=== PATIENT | male | born 1940 | race Caucasian/White ===

== ENCOUNTER 2019-06-09 16:51 | Inpatient (IN) | payer MEDICARE, MEDICAID ==
[~2019-06-09] VITALS: Ht 170.2 cm; Wt 61.2 kg
--- NOTE | 2019-06-09 16:51 | NUR ---
"HD catheter malfunction - sent by Dr. Bronson to ER- unable to do HD today per SNF nurse report" PT TO BED 16, PT AAOX4, -SOB, NAD NOTED, VSS, PENDING MD LEGGETT
[2019-06-09] MEDS ORDERED: HYDR-4075 PO (17:46)
[2019-06-09] MEDS ORDERED: INSU100V39 SQ ×2 (17:46)
[2019-06-09] MEDS ORDERED: ISOS30TA6 PO (17:46)
[2019-06-09] MEDS ORDERED: HYDR-4354 PO (17:46)
[2019-06-09] MEDS ORDERED: ATOR20TA PO (17:46)
[2019-06-09] MEDS ORDERED: NITR0.4T48 SL (17:46)
[2019-06-09] MEDS ORDERED: CARV12.52 PO (17:46)
[2019-06-09] MEDS ORDERED: TAMS-12 PO (17:46)
[2019-06-09] MEDS ORDERED: AMLO5TAB4 PO (17:46)
[2019-06-09] MEDS ORDERED: BISA10SU11 RC (17:46)
[2019-06-09] MEDS ORDERED: SENN-168 PO (17:46)
[2019-06-09] MEDS ORDERED: FAMO20TA8 PO (17:46)
[2019-06-09] MEDS ORDERED: FURO-145 PO (17:46)
[2019-06-09] MEDS ORDERED: DONE5TAB34 PO (17:46)
[2019-06-09] MEDS ORDERED: DOCU-141 PO (17:46)
[2019-06-09] MEDS ORDERED: ASCO500T10 PO (17:46)
[2019-06-09] MEDS ORDERED: VIT1TABL44 PO (17:46)
[2019-06-09] MEDS ORDERED: ACET-73 PO (17:46)
[2019-06-09] MEDS ORDERED: ASPI-605 PO (17:46)
--- NOTE | 2019-06-09 18:12 | NUR ---
CALLED [facility]ED DR GRIFFIN
[2019-06-09 18:13] LABS: BASOPHILS # (AUTO) 0.1 /CMM (0.0-0.2); BASOPHILS % (AUTO) 0.9 % (0.0-2.0); EOSINOPHILS % (AUTO) 1.2 % (0.0-6.0); HEMATOCRIT 33 % (39-51); HEMOGLOBIN 10.4 g/dL (13.5-17.5); LYMPHOCYTES % (AUTO) 8.3 % (20.0-44.0); MEAN CORPUSCULAR HGB CONC 32 g/dl (31.0-36.0); MEAN CORPUSCULAR VOLUME 90 fL (80-96); MONOCYTES # (AUTO) 1.2 /CMM (0.1-1.30); MONOCYTES % (AUTO) 10.2 % (2.0-12.0); NEUTROPHILS # (AUTO) 9.6 /CMM (1.8-8.9); NEUTROPHILS % (AUTO) 79.4 % (43.0-81.0); PLATELET COUNT (AUTO) 256 /CMM (150-450); RED BLOOD CELL COUNT(AUTO) 3.63 MIL/uL (4.5-6.0); WHITE BLOOD COUNT (AUTO) 12.1 K/uL (4.3-11.0)
[2019-06-09 18:27] LABS: CARBON DIOXIDE 23 mmol/L (21-32); CHLORIDE 102 mmol/L (98-107); CREATININE 3.9 mg/dL (0.6-1.3); GLUCOSE 209 mg/dL (74-106); POTASSIUM 5.4 mmol/L (3.5-5.1); SODIUM SERUM 136 mmol/L (136-145); UREA NITROGEN, BLOOD 59 mg/dL (7-18)
[2019-06-09] MEDS ORDERED: ALBUTEROL FS 2.5 MG/0.5 ML VIAL.NEB NEB ONE (19:00)
[2019-06-09] MEDS ORDERED: INSULIN REGULAR, HUMAN 100 UNIT/ML 10 ML VIAL IV ONE (19:00)
[2019-06-09] MEDS ORDERED: FUROSEMIDE 20 MG/2 ML VIAL IV ONE (19:00)
--- NOTE | 2019-06-09 19:00 | NUR ---
[facility] NURSE CALLED; PER DR GRIFFIN TO GIVE ALTEPLASE THROUGH HD CATH, DIALYSIS NURSE WONT BE HERE UNTIL AFTER 9PM, T.O ORDER FROM DR. GRIFFIN SENT TO PHARMACY.
[2019-06-09] MEDS ORDERED: FUROSEMIDE 20 MG/2 ML VIAL ONE (19:25)
[2019-06-09] MEDS ORDERED: INSULIN REGULAR, HUMAN 100 UNIT/ML 10 ML VIAL ONE (19:26)
[2019-06-09] MEDS ORDERED: ALBUTEROL FS 2.5 MG/0.5 ML VIAL.NEB ONE (19:34)
--- NOTE | 2019-06-09 20:59 | NUR ---
REPORT GIVEN TO PAZ VAZ FOR KIMBER PT WILL BE TRANSPORTED TO 3RD FLOOR
[2019-06-09] MEDS ORDERED: ALTEPLASE CATHFLO 2 MG/VIAL IV ONE (21:00)
--- NOTE | 2019-06-09 21:10 | NUR ---
PT TRANSPORTED TO 3RD FLOOR VIA ACLS PROTOCOL
[2019-06-09 21:20] VITALS: BP 166/82
--- NOTE | 2019-06-09 21:20 | NUR ---
ADMISSION NOTES: RECEIVED REPORT FROM NOE ROUTE RETURNER. PT WAS BROUGHT TO THE UNIT VIA GURNEY. PLACED IN BED, KEPT COMFORTABLE. PT IS A/O X4, ON RA RESPIRATIONS EVEN AND UNLABORED. IV ACCESS ON LEFT AC PATENT AND FLUSHING WELL, ON HL. PT HAS LCW SUJATA CATH IN PLACED, DRESSING C/D/I, NO ACTIVE BLEEDING NOTED. PER REPORT PT'S HD CATH NOT WORKING, AND THAT HD RN WILL COME TO FIX IT TONIGHT. PER ROUTE RETURNER NOE NO ADMITTING ORDERS RECEIVED FROM DR GRIFFIN, EXCEPT FROM THE CALL FROM MAYELA WHO WAS THE HD RN WHO WILL COME LATER TONIGHT TO FIX THE HD CATH. ORIENTED PT TO UNIT POLICY AND HOURLY ROUNDING, USE OF CALL LIGHT. INVENTORY OF BELONGINGS COMPLETED BY CHANO MIRANDA. SKIN ASSESSMENT PERFORMED AND NOTED SKIN ISSUES, PLEASE SEE SKIN ASSESSMENT LOG. SAFETY PRECAUTIONS FOR FALL INITIATED, CALL LIGHT IN REACH, WILL CONTINUE TO MONITOR PT.
--- NOTE | 2019-06-09 21:40 | NUR ---
RN NOTES: INFORMED PT ABOUT BLOOD SUGAR CHECK, PT STATED HE WANTS TO EAT FIRST HE'S BEEN STARVING HAVENT HAD ANYTHING SINCE LUNCH, PT UPSET. INSISTED HE WOULD LIKE TO EAT, INFORMED PT REPEAT SUGAR CHECK SINCE HE RECEIVED INSULIN IN ER, PER PT HE WOULD RATHER EAT THAN HAVE HIS SUGAR CHECK. PT REFUSED, UPSET.
[2019-06-09 21:44] VITALS: BP 166/82
--- NOTE | 2019-06-09 21:45 | NUR ---
rn notes: informed pt i will need to check his blood sugar prior to him eating, as he was diabetic type 2. pt refused stated he doesnt care about anything right now except eating, as he's so hungry.
--- NOTE | 2019-06-09 21:50 | NUR ---
RN NOTES: PT COMPLAINING THAT HE HAVEN'T EAT LUNCH OR DINNER, AND STARVING. INFORMED PT THERE IS NO DIET ORDER FROM MD YET, PT YELLED STATED HE CANT WAIT ANYMORE, PT GRABBED HIS BAG AND GET THE SAND WHICH INSIDE HIS BAG. PT WAS SO UPSET BECAUSE HE'S STARVING. INFORMED HYDRO STATION OPERATOR.
--- NOTE | 2019-06-09 22:21 | NUR ---
rn notes: justine freedman rn just came to the unit to try fix the hd cath port. hd rn is the one who admisnistered the medication.
--- NOTE | 2019-06-09 22:30 | NUR ---
RN NOTES: PER HD RN BILL, MEDICATION WAS ADMINISTERED IN ONE PORT ONLY, HE STATED HE SUPPOSED TO HAVE 4MG OF THE MEDICATION, HE EXPLAINED THAT HE INSTILL THE MEDICATION IN THE PORT AND IT NEEDS TO SIT THERE FOR HOURS. HE ADDED IT WILL BE CHECK IN THE MORNING,IF EVERYTHING WENT WELL, THEN HD WILL BE DONE IN THE MORNING. HE STATED HE WILL NOTIFY DR GRIFFIN HIMSELF.
[2019-06-09 22:37] VITALS: BP 135/69
--- NOTE | 2019-06-09 22:46 | NUR ---
RN NOTES: [facility]TACTED [facility] [phone], FOR ADMITTING ORDERS, AWAITING FOR CALL BACK.
--- NOTE | 2019-06-09 23:12 | NUR ---
RN NOTES: RECEIVED CALL BACK FROM DR GABY Solorzano, GIVEN ADMITTING ORDERS, ALL ORDERS READ BACK, VERIFIED AND CARRIED OUT.
--- NOTE | 2019-06-09 23:13 | NUR ---
RN NOTES: DR GRIFFIN MADE AWARE OF ALL LAB RESULT AND CXR RESULT. PER MD IF THERE'S EKG DONE, THEN ITS OKAY, IF NONE, ORDER ONE EKG TEST TONIGHT.
[2019-06-09] MEDS ORDERED: TAMSULOSIN 0.4 MG CAP.SR.24H PO SCH (23:30)
[2019-06-09] MEDS ORDERED: DONEPEZIL 5 MG TABLET PO SCH (23:30)
[2019-06-09] MEDS ORDERED: HYDROCODONE/APAP 10/325MG 1 EA TABLET PO PRN (23:30)
[2019-06-09] MEDS: ATORVASTATIN 10 MG TABLET PO SCH (23:51)
[2019-06-09] MEDS: SENNOSIDES 8.6 MG TABLET PO SCH (23:51)
[2019-06-10] VITALS: BP 143/71
--- NOTE | 2019-06-10 02:15 | NUR ---
RN NOTES: PRINTED OUT ORDER FOR LISPRO IN AM, INFORMED RN SUP DEIRDRE ABOUT THE ORDER, PER RN SUP TO HAVE PHARMACY BROUGHT IT IN AM, THIS IS A FAST ACING INSULIN, PT NEEDS TO HAVE BREAKFAST TRAY AVAILABLE/MEAL AVAILABLE BEFORE GIVING THE MEDICATION TO PT IN ORDER TO MAKE SURE PT ATE AFTER RECEIVING LISPRO INSULIN. TAILING HAND AWARE.
[2019-06-10 04:50] VITALS: BP 141/69
--- NOTE | 2019-06-10 06:50 | NUR ---
rn closing notes: pt in bed, awake, remains a/o x3, on ra respirations even and unlabored. urinal within reach. iv access remains patent and flushing well, on hl. hd cath dressing remains c/d/i. no active bleeding noted. awaiting for hd rn to come and recheck hd catheter. vs remains stable, needs attended. . safety precautions for fall remains engaged, call light in reach, will endorse to day rn for continuity of care.
--- NOTE | 2019-06-10 07:31 | NUR ---
MS RN OPENING NOTES RECEIVED PT AWAKE IN BED IN NO ACUTE SIGNS OF DISTRESS. A/O X3. ABLE TO MAKE NEEDS KNOWN, DENIES ANY PAIN OR DISCOMFORTS AT THIS TIME. HD CATH ON CINDY INTACT WITH DRESSING C/D/I. ON ROOM AIR, BREATHING EVEN AND UNLABORED. IV ACCESS ON LAC G#20 INTACT, PATENT AND FLUSHES WELL. SAFETY MEASURES IN PLACE. BED IN LOW LOCKED POSITION WITH SR UP X2. CALL LIGHT WITHIN REACH. WILL CONTINUE TO MONITOR PT ACCORDINGLY.
[2019-06-10] MEDS: INSULIN LISPRO/ASPART 100 UNIT/ML CARTRIDGE SQ PRN (07:39)
[2019-06-10] MEDS: BLOOD SUGAR DIAGNOSTIC 1 EACH STRIP IN SCH ×4 (07:39→21:29)
[2019-06-10 08:00] VITALS: BP 148/88
[2019-06-10] MEDS: ISOSORBIDE MONONITRATE (30MG) 30 MG TAB.SR.24H PO SCH ×3 (09:00→16:22)
[2019-06-10] MEDS: CARVEDILOL 12.5 MG TABLET PO SCH ×2 (09:00→21:29)
[2019-06-10] MEDS ORDERED: MISCELLANEOUS MED 1 EA EA XX ONE (09:00)
[2019-06-10] MEDS: AMLODIPINE BESYLATE 5 MG TABLET PO SCH ×2 (09:00→16:24)
[2019-06-10] MEDS: ASCORBIC ACID 500 MG TABLET PO SCH (09:00)
[2019-06-10] MEDS ORDERED: HYDROCODONE/APAP 10/325MG 1 EA TABLET PO PRN (09:00)
[2019-06-10] MEDS ORDERED: BISACODYL SUPP (10 MG) 10 MG/SUPP.RECT SUPP.RECT RC PRN (09:00)
[2019-06-10] MEDS: hydrALAZINE HCL 10 MG TABLET PO SCH ×4 (09:00→20:09)
[2019-06-10] MEDS ORDERED: NITROGLYCERIN 0.4 MG/TAB BOTTLE SL PRN (09:00)
[2019-06-10] MEDS ORDERED: MISCELLANEOUS MED 1 EA EA PO PRN (09:00)
[2019-06-10] MEDS: DOCUSATE SODIUM 100 MG CAPSULE PO SCH ×2 (09:04→16:23)
[2019-06-10] MEDS: VIT B CMPLX 3/FA/VIT C/BIOTIN 1 TAB TABLET PO SCH (09:04)
[2019-06-10] MEDS: ASPIRIN EC 81 MG TABLET.DR PO SCH (09:04)
[2019-06-10] MEDS: FAMOTIDINE (20 MG) 20 MG TABLET PO SCH ×2 (09:04→16:23)
[2019-06-10] MEDS: FUROSEMIDE 20 MG TABLET PO SCH ×2 (09:05→16:23)
[2019-06-10] MEDS ORDERED: ACETAMINOPHEN 650 MG/20.3 ML UDC PO PRN (09:30)
--- NOTE | 2019-06-10 09:33 | NUR ---
RN NOTES DIALYSIS NURSE MAYELA ABLE TO DE CLOGGED HD CATH ON CINDY AND STARTED ON HD. PRE HD V/S TAKE: BP 144/78, P 66, R 18 AND T98.5F. WILL CONTINUE TO MONITOR.
[2019-06-10] MEDS: INSULIN LISPRO/ASPART 100 UNIT/ML CARTRIDGE SQ SCH ×2 (09:58→17:25)
[2019-06-10] MEDS ORDERED: ALTEPLASE CATHFLO 2 MG/VIAL IV ONE (10:00)
--- NOTE | 2019-06-10 10:02 | NUR ---
RN NOTES PT ON ONGOING DIALYSIS AT THIS TIME. ALL BP MEDS THIS MORNING NOT ADMINISTERED PER DIALYSIS NURSE BILL. WILL CONTINUE TO MONITOR.
--- NOTE | 2019-06-10 11:24 | NUR ---
RN NOTES PT HD COMPLETED AND TOLERATED PROCEDURE WITH 1000 ML OUTPUT PER HD NURSE BILL. DRESSING ON CINDY HD CATH CHANGED BY HD NURSE. S/P HD V/S TAKEN: BP 144/78, P 66, R 18. T 98F. WILL CONTINUE TO MONITOR PT.
[2019-06-10 16:00] VITALS: BP 145/79
--- NOTE | 2019-06-10 18:38 | NUR ---
MS RN CLOSING NOTES PT AWAKE AND WATCHING TV IN BED. HOB ELEVATED. A/O X3. ABLE TO MAKE NEEDS KNOWN. HD CATH ON CINDY INTACT WITH DRESSING C/D/I. PT TOLERATED ROOM AIR WITH NO ACUTE SIGNS OF DISTRESS NOTED THROUGHOUT THE DAY. IV HL ON LAC G#20 INTACT, PATENT AND FLUSHES WELL. PT ABLE TO MOVE INDEPENDENTLY IN BED. ENCOURAGED TO TURN FROM SIDE TO SIDE Q 2HRS AND PRN. ALL NEEDS AND CARE ATTENDED WELL. SAFETY MEASURES IN PLACE. BED IN LOW LOCKED POSITION WITH SR UP X2. CALL LIGHT WITHIN REACH. WILL ENDORSE TO CASTING ROOM HELPER NURSE FOR KIMBER.
--- NOTE | 2019-06-10 19:25 | NUR ---
RN INITIAL NOTES: RECEIVED REPORT FROM LIN VAZ. MET WITH PT IN THE ROOM, PT AWAKE, A/O X3, ON RA RESPIRATIONS EVEN AND UNLABORED. DENIES ANY PAIN OR DISCOMFORT AT THIS TIME. IV ACCESS PATENT AND FLUSHING WELL, ON HL. PT'S URINAL WITHIN REACH. LCW HD CATH DRESSING C/D/I, S/P HD TODAY WITH 1L OUTPUT. DISCUSSED PLAN OF CARE TO PT, WHICH PT AGREE. SAFETY PRECAUTIONS FOR FALL INITIATED, CALL LIGHT IN REACH, WILL CONTINUE MONITORING PT.
[2019-06-10 20:00] VITALS: BP 153/60
[2019-06-10 21:20] VITALS: BP 134/68
[2019-06-10] MEDS: DONEPEZIL 5 MG TABLET PO SCH (21:29)
[2019-06-10] MEDS: ATORVASTATIN 10 MG TABLET PO SCH (21:29)
[2019-06-10] MEDS: TAMSULOSIN 0.4 MG CAP.SR.24H PO SCH (21:29)
[2019-06-10] MEDS: SENNOSIDES 8.6 MG TABLET PO SCH (21:30)
--- NOTE | 2019-06-10 21:37 | NUR ---
ACCU CHECK 78: CHECK BLOOD SUGAR AND RESULT IS 78, NO INSULIN LISPRO GIVEN PER SLIDING SCALE. PT PROVIDED WITH SNACK SUCH TUNA SAND WHICH, JELL O , CRANBERRY JUICE, APPLE SAUCE PER PT REQUEST. WILL MONITOR FOR ANY S/S OF HYPOGLYCEMIA.
[2019-06-10] MEDS ORDERED: ATORVASTATIN 10 MG TABLET PO SCH (22:00)
[2019-06-10] MEDS ORDERED: SENNOSIDES 8.6 MG TABLET PO SCH (22:00)
[2019-06-11] MEDS ORDERED: Z GUARD REMEDY 2 OZ OINT TP PRN (04:00)
--- NOTE | 2019-06-11 04:51 | NUR ---
RN NOTES: BED BATH AND COMPLETE LINEN CHANGE PROVIDED BY CHANO GRIFFIN, WOUND CARE TX PERFORMED AT THIS TIME.
--- NOTE | 2019-06-11 06:43 | NUR ---
RN CLOSING NOTES: PT REMAINS ON RA, DENIES ANY SOB OR CHEST PAIN AT THIS TIME. IV ACCESS REMAINS PATENT AND FLUSHING WELL, ON HL. LCW HD CATH REMAINS IN PLACED, DRESSING C/D/I. BLE KEPT OFFLOADED. AWAITING DELIVERY OF [employer] MATTRESS. VS REMAINS STABLE, NEEDS ATTENDED. SAFETY PRECAUTIONS FOR FALL REMAINS ENGAGED, CALL LIGHT IN REACH, WILL ENDORSE TO DAY RN FOR CONTINUITY OF CARE.
--- NOTE | 2019-06-11 07:50 | NUR ---
MS RN OPENING NOTES RECEIVED PATIENT IN BED. ALERT AND AWAKE ORIENTED X3. HOB ELEVATED. NO SOB OBSERVED. DENIES ANY C/O PAIN NOR DISCOMFORT AT THIS TIME. CINDY HD CATH INTACT WITH DRESSING INTACT WITHOUT S/S OF COMPLICATIONS OBSERVED. LAC # 20 INTACT AND PATENT. BED IN LOWEST POSITION, LOCKED. BED ALARM ON. CALL LIGHT WITHIN REACH.
[2019-06-11 08:00] VITALS: BP 135/64
[2019-06-11] MEDS: ASCORBIC ACID 500 MG TABLET PO SCH (08:25)
[2019-06-11] MEDS: VIT B CMPLX 3/FA/VIT C/BIOTIN 1 TAB TABLET PO SCH (08:25)
[2019-06-11] MEDS: ASPIRIN EC 81 MG TABLET.DR PO SCH (08:25)
[2019-06-11] MEDS: BLOOD SUGAR DIAGNOSTIC 1 EACH STRIP IN SCH ×4 (08:25→21:40)
[2019-06-11] MEDS: FUROSEMIDE 20 MG TABLET PO SCH ×2 (08:26→17:21)
[2019-06-11] MEDS: FAMOTIDINE (20 MG) 20 MG TABLET PO SCH ×2 (08:26→17:21)
[2019-06-11] MEDS: DOCUSATE SODIUM 100 MG CAPSULE PO SCH ×2 (08:26→09:05)
[2019-06-11] MEDS: hydrALAZINE HCL 10 MG TABLET PO SCH ×4 (08:30→21:00)
[2019-06-11] MEDS: ISOSORBIDE MONONITRATE (30MG) 30 MG TAB.SR.24H PO SCH ×3 (08:31→17:00)
[2019-06-11] MEDS: AMLODIPINE BESYLATE 5 MG TABLET PO SCH ×2 (08:31→17:00)
[2019-06-11] MEDS: CARVEDILOL 12.5 MG TABLET PO SCH ×2 (08:31→21:00)
[2019-06-11] MEDS: INSULIN LISPRO/ASPART 100 UNIT/ML CARTRIDGE SQ SCH ×2 (08:33→17:00)
--- NOTE | 2019-06-11 08:55 | NUR ---
MS RN NOTES HELD B/P MEDS, ANTICIPATING HD.
[2019-06-11 11:19] LABS: BASOPHILS # (AUTO) 0.1 /CMM (0.0-0.2); BASOPHILS % (AUTO) 0.7 % (0.0-2.0); EOSINOPHILS % (AUTO) 2.8 % (0.0-6.0); HEMATOCRIT 30 % (39-51); HEMOGLOBIN 9.6 g/dL (13.5-17.5); LYMPHOCYTES # (AUTO) 1.2 /CMM (0.8-4.8); LYMPHOCYTES % (AUTO) 10.6 % (20.0-44.0); MEAN CORPUSCULAR HGB CONC 32 g/dl (31.0-36.0); MEAN CORPUSCULAR VOLUME 90 fL (80-96); MONOCYTES # (AUTO) 1.2 /CMM (0.1-1.30); MONOCYTES % (AUTO) 10.7 % (2.0-12.0); NEUTROPHILS # (AUTO) 8.5 /CMM (1.8-8.9); NEUTROPHILS % (AUTO) 75.2 % (43.0-81.0); PLATELET COUNT (AUTO) 188 /CMM (150-450); RED BLOOD CELL COUNT(AUTO) 3.32 MIL/uL (4.5-6.0); WHITE BLOOD COUNT (AUTO) 11.3 K/uL (4.3-11.0)
[2019-06-11 11:46] LABS: ALANINE AMINOTRANSFERASE 31 U/L (12-78); ALBUMIN 2.7 g/dL (3.4-5.0); ALKALINE PHOSPHATASE 90 U/L (46-116); ASPARTATE AMINOTRANSFERASE 21 U/L (15-37); BILIRUBIN,TOTAL 0.3 mg/dL (0.2-1.0); CALCIUM, SERUM 8.5 mg/dL (8.5-10.1); CARBON DIOXIDE 24 mmol/L (21-32); CHLORIDE 100 mmol/L (98-107); CREATININE 3.6 mg/dL (0.6-1.3); GLUCOSE 185 mg/dL (74-106); MAGNESIUM 1.5 mg/dL (1.8-2.4); PHOSPHORUS 4.7 mg/dL (2.5-4.9); POTASSIUM 4.2 mmol/L (3.5-5.1); SODIUM SERUM 135 mmol/L (136-145); TOTAL PROTEIN, SERUM 7.1 g/dL (6.4-8.2); UREA NITROGEN, BLOOD 42 mg/dL (7-18)
[2019-06-11] MEDS: INSULIN LISPRO/ASPART 100 UNIT/ML CARTRIDGE SQ PRN ×2 (12:28→21:48)
--- NOTE | 2019-06-11 13:51 | NUR ---
MS RN NOTES HELD BP MEDS, ANTICIPATING HD TODAY.
[2019-06-11 16:00] VITALS: BP 144/70
--- NOTE | 2019-06-11 16:00 | NUR ---
MS RN NOTES NOTED PATIENT WITH TEMP OF 99.0 F ORALLY. , PATIENT'S ROOM WARM WITH TEMP ON HIGHEST ON WARM SECTION AND PATIENT COVERED WITH 4 BLANKETS. PER PATIENT I'M ALWAYS COLD. DESPITE EXPLANATIONS AND EDUCATION PROVIDED TO PATIENT REGARDING BODY TEMP, DECREASE OF BLANKET AND ROOM TEMPERATURE, PATIENT STATES, "IF MY TEMP GOES HIGHER THEN WE'LL DEAL WITH IT."
--- NOTE | 2019-06-11 16:38 | NUR ---
MS RN NOTES RELAYED TO DR. OZUNA MAG LEVEL OF 1.5 WITH NNO AT THIS TIME.
--- NOTE | 2019-06-11 17:17 | NUR ---
MS RN NOTES RECHECKED ORAL TEMP 97.8 F.
--- NOTE | 2019-06-11 18:00 | NUR ---
MS RN NOTES BS 151MG/DL, HELD INSULIN. PATIENT REFUSED DINNER.
--- NOTE | 2019-06-11 18:45 | NUR ---
MS RN CLOSING NOTES PATIENT IN BED. ALERT AND AWAKE ORIENTED X3 WATCHING TV. HOB ELEVATED. NO S/S OF RESPIRATORY DISTRESS. DENIES ANY C/O PAIN NOR DISCOMFORT AT THIS TIME. CINDY HD CATH INTACT WITH DRESSING INTACT WITHOUT S/S OF COMPLICATIONS OBSERVED. AWAITING FOR HD TX TODAY. LAC # 20 INTACT AND PATENT. BED IN LOWEST POSITION, LOCKED. BED ALARM ON. CALL LIGHT WITHIN REACH. ABLE TO VERBALIZE NEEDS. IN NO APPARENT DISTRESS.
--- NOTE | 2019-06-11 19:54 | NUR ---
MS/RN OPENING NOTES RECEIVED PATIENT IN BED, AWAKE, ALERT X3, ABLE TO VERBALIZE NEEDS, RESPIRATIONS EVEN AND UNLABORED, SKIN WARM TO TOUCH, PROVIDED SNACKS, AND FLUIDS, KEPT COMFORTABLE. BED LOCKED CALL LIGHTS WITHIN REACH, ABLE TO USE URINAL AND REQUIRE ASSISTANCE IN BOWEL MANAGEMENT PATIENT . WILL MONITOR, RECEIVED ENDORESEMENT FROM AM RN FOR KIMBER. WILL MONITOR.
[2019-06-11 20:00] VITALS: BP 155/73
--- NOTE | 2019-06-11 20:02 | NUR ---
MS/RN NOTES PATIENT WANT ROOM TEMPERATURE VERY WARM, AND WANT BLANKETS, SKIN WARM AND BODY TEMPERATURE AT 99 DEG F.
[2019-06-11] MEDS: ATORVASTATIN 10 MG TABLET PO SCH (21:26)
[2019-06-11] MEDS: TAMSULOSIN 0.4 MG CAP.SR.24H PO SCH (21:26)
[2019-06-11] MEDS: DONEPEZIL 5 MG TABLET PO SCH (21:26)
[2019-06-11] MEDS: SENNOSIDES 8.6 MG TABLET PO SCH (21:38)
--- NOTE | 2019-06-11 21:51 | NUR ---
ms/rn notes PATIENT BLOOD PRESSURE MEDICATION NOT TAKEN REPORTED THAT HE WILL HAVE DIALYSIS TODAY AND WILL NOT BE TAKING IT .MONITOIRNG FOR ANY CHANGES.
--- NOTE | 2019-06-12 04:41 | NUR ---
MS/RN NOTES PHOTO OF PATIENT SKIN ISSUES OBTAINED, THE SACRAL AREA NOT TAKEN OBSERVE LOOSE SKINS ANDSACRAL RENESS
[2019-06-12] MEDS: BLOOD SUGAR DIAGNOSTIC 1 EACH STRIP IN SCH ×4 (06:07→22:30)
--- NOTE | 2019-06-12 06:26 | NUR ---
325-1 MS/RN NOTES PATIENT IN BED RESTING COMFORTABLY, ABLE TO VERBAALIZE NEEDS, ABLE TO SLEEP DURING THE NIGHT. SAFETY PRECAUTIONS PLACED, MONITORED AND KEPT COMFORTABLE. RESPIRATIONS EVEN AND UNLABORED. DISCUSSED CONCERNS WAS TOLD THAT HE WILL HAVE DIALYSIS LAST NIGHT BUT DID NOT COME. WILL F/U AM WILL ENDORSE TO AM RN FOR KIMBER.
--- NOTE | 2019-06-12 07:40 | NUR ---
MS RN NOTES PATIENT RECEIVED RESTING INSIDE ROOM. AWAKE, ALERT AND ORIENTED X 3, VERBALLY RESPONSIVE AND RESPONDS TO VERBAL AND TACTILE STIMULI. NO CHANGES IN LOC NOTED. PATIENT CALM AND RELAXED. RECEIVED ENDORSEMENT FROM PREVIOUS SHIFT THAT PATIENT MAY HAVE DIALYSIS TODAY. PLACED CALL AND LEFT MESSAGE WITH DIALYSIS NURSE, AWAITING CALL BACK. PATIENT AWARE AND VERBALIZED UNDERSTANDING. WILL CONTINUE TO MONITOR. BED LOCKED AND IN LOW POSITION. BILATERAL UPPER SIDE RAILS UP AND LOCKED. CALL LIGHT WITHIN EASY REACH
[2019-06-12] MEDS: ISOSORBIDE MONONITRATE (30MG) 30 MG TAB.SR.24H PO SCH ×3 (09:00→17:00)
[2019-06-12] MEDS: hydrALAZINE HCL 10 MG TABLET PO SCH ×5 (09:00→21:00)
[2019-06-12] MEDS: CARVEDILOL 12.5 MG TABLET PO SCH ×3 (09:00→21:00)
[2019-06-12] MEDS: AMLODIPINE BESYLATE 5 MG TABLET PO SCH ×2 (09:00→17:00)
[2019-06-12] MEDS: VIT B CMPLX 3/FA/VIT C/BIOTIN 1 TAB TABLET PO SCH (09:22)
[2019-06-12] MEDS: INSULIN LISPRO/ASPART 100 UNIT/ML CARTRIDGE SQ SCH ×2 (09:22→17:42)
[2019-06-12] MEDS: ASPIRIN EC 81 MG TABLET.DR PO SCH (09:22)
[2019-06-12] MEDS: ASCORBIC ACID 500 MG TABLET PO SCH (09:22)
[2019-06-12] MEDS: FUROSEMIDE 20 MG TABLET PO SCH ×2 (09:22→17:41)
[2019-06-12] MEDS: DOCUSATE SODIUM 100 MG CAPSULE PO SCH ×2 (09:22→17:41)
[2019-06-12] MEDS: FAMOTIDINE (20 MG) 20 MG TABLET PO SCH ×2 (09:29→17:41)
--- NOTE | 2019-06-12 12:10 | NUR ---
WOUND CARE CONSULT: SEEN PATIENT AT BEDSIDE ,PATIENT PRESENTS WITH BILATERAL GROINS MASD, BUTTOCKS \SACRAL WITH BLANCHABLE REDNESS , BOTH HEELS AND RT AND LT FOOT WITH DRY SCALING SKIN, PRESENT ON ADMISSION, CURRENT NADIR SCORE IS 16 RECOMMENDATION MADE FOR SKIN PROTECTION AND DISCUSSED WITH NURSING STAFF , IN AGREEMENT WITH PLAN OF CARE , WILL SEE PRN Addendum: 06/12/19 at 1221 by SAMSON DINH RN Amended: Links added.
[2019-06-12] MEDS: INSULIN LISPRO/ASPART 100 UNIT/ML CARTRIDGE SQ PRN (12:48)
[2019-06-12] MEDS: CLOTRIMAZOLE 1% 15 GM TUBE TP SCH ×2 (13:00→17:41)
[2019-06-12] MEDS ORDERED: VITAMINS A AND D 56.7 GM TUBE TP PRN (13:00)
[2019-06-12 16:00] VITALS: BP 146/73
--- NOTE | 2019-06-12 19:00 | NUR ---
MS RN NOTES PATIENT RESTING INSIDE ROOM. AWAKE, ALERT AND ORIENTED, VERBALLY RESPONSIVE AND RESPONDS TO VERBAL AND TACTILE STIMULI. ONGOING HD AT THIS TIME. BLOOD TO BE COLLECTED FOR BLOOD CX. PATIENT TOLERATING HD AT THIS TIME. NO CHANGES IN LOC NOTED. NO ACUTE DISTRESS. NO C/O PAIN OR DISCOMFORT. WILL ENDORSE TO INCOMING SHIFT FOR KIMBER. BED LOCKED AND IN LOW POSITION. BILATERAL UPPER SIDE RAILS UP AND LOCKED. CALL LIGHT WITHIN EASY REACH
--- NOTE | 2019-06-12 19:30 | NUR ---
RN MS OPENING NOTES RECEIVED PT IN BED, AWAKE ALERT ORIENTED X4, BREATHING EVEN AND UNLABORED ON ROOM AIR. HD NURSE BED SIDE. NO COMPLAINT OF PAIN OR DISCOMFORT AT THIS TIME. L AC 20G AND LCW DH CATH, PATENT AND WORKING. BED IN LOWEST LOCKED POSITION, CALL LIGHT WITHIN REACH AT ALL TIMES, WILL CONTINUE TO MONITOR FREQUENTLY.
[2019-06-12 20:00] VITALS: BP 123/73
[2019-06-12] MEDS: ATORVASTATIN 10 MG TABLET PO SCH ×2 (21:10→22:30)
[2019-06-12] MEDS: SENNOSIDES 8.6 MG TABLET PO SCH ×2 (21:10→22:30)
[2019-06-12] MEDS: TAMSULOSIN 0.4 MG CAP.SR.24H PO SCH ×2 (21:10→22:30)
[2019-06-12] MEDS: DONEPEZIL 5 MG TABLET PO SCH ×2 (21:10→22:30)
--- NOTE | 2019-06-13 06:40 | NUR ---
RN MS CLOSING NOTES PT REMAINS IN BED, AWAKE ALERT ORIENTED X4, BREATHING EVEN AND UNLABORED ON ROOM AIR. NO COMPLAINT OF PAIN OR DISCOMFORT AT THIS TIME. L AC 20G AND LCW DH CATH, PATENT AND WORKING. BED IN LOWEST LOCKED POSITION, CALL LIGHT WITHIN REACH AT ALL TIMES, WILL ENDORSE TO DAY NURSE FOR KIMBER
[2019-06-13] MEDS: BLOOD SUGAR DIAGNOSTIC 1 EACH STRIP IN SCH ×2 (07:08→13:16)
[2019-06-13] MEDS: INSULIN LISPRO/ASPART 100 UNIT/ML CARTRIDGE SQ PRN ×2 (07:14→13:18)
[2019-06-13 08:00] VITALS: BP 126/65
--- NOTE | 2019-06-13 08:00 | NUR ---
MS RN NOTES PATIENT RECEIVED RESTING INSIDE ROOM. AWAKE, ALERT AND ORIENTED X 3, VERBALLY RESPONSIVE AND RESPONDS TO VERBAL AND TACTILE STIMULI. NO CHANGES IN LOC NOTED. PATIENT CALM AND RELAXED. DENIES ANY PAIN OR DISCOMFORT. NO ACUTE DISTRESS. WILL CONTINUE TO MONITOR. BED LOCKED AND IN LOW POSITION. BILATERAL UPPER SIDE RAILS UP AND LOCKED. CALL LIGHT WITHIN EASY REACH
[2019-06-13] MEDS: ASPIRIN EC 81 MG TABLET.DR PO SCH (08:50)
[2019-06-13] MEDS: hydrALAZINE HCL 10 MG TABLET PO SCH ×2 (08:50→13:17)
[2019-06-13] MEDS: ASCORBIC ACID 500 MG TABLET PO SCH (08:50)
[2019-06-13] MEDS: VIT B CMPLX 3/FA/VIT C/BIOTIN 1 TAB TABLET PO SCH (08:51)
[2019-06-13] MEDS: FUROSEMIDE 20 MG TABLET PO SCH (08:51)
[2019-06-13] MEDS: FAMOTIDINE (20 MG) 20 MG TABLET PO SCH (08:51)
[2019-06-13] MEDS: CARVEDILOL 12.5 MG TABLET PO SCH (08:51)
[2019-06-13] MEDS: DOCUSATE SODIUM 100 MG CAPSULE PO SCH (08:51)
[2019-06-13] MEDS: AMLODIPINE BESYLATE 5 MG TABLET PO SCH (08:51)
[2019-06-13] MEDS: INSULIN LISPRO/ASPART 100 UNIT/ML CARTRIDGE SQ SCH (08:52)
[2019-06-13] MEDS: CLOTRIMAZOLE 1% 15 GM TUBE TP SCH (08:53)
[2019-06-13] MEDS: ISOSORBIDE MONONITRATE (30MG) 30 MG TAB.SR.24H PO SCH ×2 (08:58→13:16)
--- NOTE | 2019-06-13 12:46 | NUR ---
MS RN NOTES PATIENT CLEARED TO DISCHARGE BY DR OZUNA. PATIENT MADE AWARE AND VERBALIZED UNDERSTANDING. PLACED CALL TO [facility] ([phone]) AND GAVE REPORT TO NOLA ESCOBEDO RN. WILL CONTINUE TO MONITOR
--- NOTE | 2019-06-13 12:57 | NUR ---
MS RN NOTES DR OZUNA PRESENT AT UNIT, MADE AWARE THAT PATIENT HAD DIALYSIS YESTERDAY. WITH OK FOR PATIENT TO BE DISCHARGED TODAY. NO NEED FOR FURTHER DIALYSIS TODAY. SPOKE WITH CUSTOMER ACQUISITION MANAGERFRACISCO AND MADE AWARE. WILL CONTINUE TO MONITOR
--- NOTE | 2019-06-13 14:54 | NUR ---
MS RN NOTES SPOKE WITH PATIENT TO TAKE WOUND DOCUMENTATION PICTURES. PATIENT REFUSED. RISKS AND BENEFITS EXPLAINED BUT TO NO AVAIL. PATIENT VERBALIZED PICTURES WERE TAKEN YESTERDAY AND STRONGLY REFUSED. WILL CONTINUE TO MONITOR
[2019-06-13 16:00] VITALS: BP 125/75
--- NOTE | 2019-06-13 17:00 | NUR ---
MS RN NOTES PATIENT FOR DISCHARGE TODAY BACK TO [facility]. DISCHARGE INSTRUCTIONS AND EDUCATION PROVIDED AND VERBALIZED UNDERSTANDING. ALL BELONGINGS COMPLETE, NO REPORT OF MISSING INVENTORY, NO REPORT OF MISSING INVENTORY. NO NEW SKIN BREAKDOWN ON DISCHARGE. IV REMOVED, TIP INTACT, PRESSURE DRESSING PLACED ON SITE. PATIENT LEFT UNIT BY TOVA IN STABLE CONDITION. NO ACUTE DISTRESS. PATIENT CALM AND RELAXED. LEFT HOSPITAL PREMISES VIA AMBULANCE. MD AWARE OF DISCHARGE
== END 2019-06-13 17:10 | DRG 314 ==
LOC: ER 16:59 → MED 20:49
PROVIDERS: ADMIT Internal Medicine Nephrology; ATTEND Internal Medicine
PROC: 5A1D70Z Performance of Urinary Filtration, Intermittent, Less than 6 Hours Per Day (ICD-10-PCS; principal; 2019-06-09)
DX: T82.41XA Breakdown (mechanical) of vascular dialysis catheter, initial encounter (principal); N18.6 End stage renal disease; I13.2 Hypertensive heart and chronic kidney disease with heart failure and with stage 5 chronic kidney disease, or end stage renal disease; I50.22 Chronic systolic (congestive) heart failure; E11.22 Type 2 diabetes mellitus with diabetic chronic kidney disease; Y71.2 Prosthetic and other implants, materials and accessory cardiovascular devices associated with adverse incidents; N40.0 Benign prostatic hyperplasia without lower urinary tract symptoms; F03.90 Unspecified dementia, unspecified severity, without behavioral disturbance, psychotic disturbance, mood disturbance, and anxiety; Z79.4 Long term (current) use of insulin; Z79.82 Long term (current) use of aspirin; Z87.01 Personal history of pneumonia (recurrent); Y83.8 Other surgical procedures as the cause of abnormal reaction of the patient, or of later complication, without mention of misadventure at the time of the procedure; Y92.129 Unspecified place in nursing home as the place of occurrence of the external cause; Z99.2 Dependence on renal dialysis; Z86.19 Personal history of other infectious and parasitic diseases
CPT/HCPCS: 36415; 71045-TC; 80048-TC; 80053-TC; 82962-TC; 83735-TC; 84100-TC; 85025-TC; 85610-TC; 85730-TC; 86706; 86850-TC; 87040-TC; 87081-TC; 87340; 90935-TC; G0378; J1815; J1940; J2997

== ENCOUNTER 2019-06-22 10:55 | Inpatient (IN) | payer MEDICARE, MEDICAID ==
[~2019-06-22] VITALS: Ht 167.6 cm; Wt 61.0 kg
[~2019-06-22 10:55] MED LIST: ACET-73 PO; AMLO5TAB4 PO; ASCO500T10 PO; ASPI-605 PO; ATOR20TA PO; BISA10SU11 RC; CARV12.52 PO; DOCU-141 PO; DONE5TAB34 PO; FAMO20TA8 PO; FURO-145 PO; HYDR-4075 PO; HYDR-4354 PO; INSU100V39 SQ; ISOS30TA6 PO; NITR0.4T48 SL; SENN-168 PO; TAMS-12 PO; VIT1TABL44 PO
--- NOTE | 2019-06-22 11:08 | NUR ---
PT [facility], SENT BY PMD FOR DIALYSIS CATH MALFUNCTION, PT IS AAOX4, NOT IN RESPIRATORY DISTRESS, HOOKED TO MONITOR, KEPT RESTED AND COMFORTABLEM, WILL CONTINUE TO MONITOR.
[2019-06-22] MEDS ORDERED: MAGN400O6 PO (11:28)
[2019-06-22] MEDS ORDERED: BACL10TA PO (11:28)
[2019-06-22] MEDS ORDERED: VIT1TABL44 PO (11:28)
[2019-06-22] MEDS ORDERED: LIDOCAINE PATCH TP (11:28)
[2019-06-22] MEDS ORDERED: NA P133E RC (11:28)
[2019-06-22] MEDS ORDERED: ZINC220C8 PO (11:28)
[2019-06-22] MEDS ORDERED: MULT-447 PO (11:28)
[2019-06-22] MEDS ORDERED: NITR0.4T48 SL (11:28)
--- NOTE | 2019-06-22 11:43 | NUR ---
KEY SANDER AT BEDSIDE FOR XRAY.
--- NOTE | 2019-06-22 11:55 | NUR ---
IV LINE ESTABLISHED, BLOOD DRAWNED AND SENT TO LAB.
[2019-06-22 12:00] LABS: BASOPHILS # (AUTO) 0.1 /CMM (0.0-0.2); BASOPHILS % (AUTO) 0.7 % (0.0-2.0); EOSINOPHILS % (AUTO) 1.4 % (0.0-6.0); HEMATOCRIT 35 % (39-51); HEMOGLOBIN 11.3 g/dL (13.5-17.5); LYMPHOCYTES # (AUTO) 1.2 /CMM (0.8-4.8); LYMPHOCYTES % (AUTO) 7.6 % (20.0-44.0); MEAN CORPUSCULAR HGB CONC 32 g/dl (31.0-36.0); MEAN CORPUSCULAR VOLUME 90 fL (80-96); MONOCYTES # (AUTO) 1.5 /CMM (0.1-1.30); MONOCYTES % (AUTO) 9.4 % (2.0-12.0); NEUTROPHILS # (AUTO) 12.5 /CMM (1.8-8.9); NEUTROPHILS % (AUTO) 80.9 % (43.0-81.0); PLATELET COUNT (AUTO) 261 /CMM (150-450); WHITE BLOOD COUNT (AUTO) 15.4 K/uL (4.3-11.0)
[2019-06-22 12:05] LABS: CALCIUM, SERUM 8.9 mg/dL (8.5-10.1); CARBON DIOXIDE 28 mmol/L (21-32); CHLORIDE 99 mmol/L (98-107); CREATININE 2.9 mg/dL (0.6-1.3); GLUCOSE 144 mg/dL (74-106); POTASSIUM 3.7 mmol/L (3.5-5.1); SODIUM SERUM 137 mmol/L (136-145); UREA NITROGEN, BLOOD 26 mg/dL (7-18)
--- NOTE | 2019-06-22 12:28 | NUR ---
CALLED FOR TELE BED, TURNED IN MOVE SHEET
--- NOTE | 2019-06-22 12:35 | NUR ---
TELE BED 114-1
--- NOTE | 2019-06-22 13:04 | NUR ---
REPORT BONIFACIO TO ТАТЬЯНА GOODMAN FOR KIMBER.
--- NOTE | 2019-06-22 13:33 | NUR ---
PT BROUGHT ONTO UNIT VIA [facility]. PT AMBULATED TO BED FROM [facility] AND DENIED ANY PAIN OR SOB AT PRESENT MOMENT.
[2019-06-22] MEDS ORDERED: HYDROCODONE/APAP 10/325MG 1 EA TABLET PO PRN (15:00)
[2019-06-22] MEDS ORDERED: MAGNESIUM HYDROXIDE 30 ML UDC PO PRN (15:00)
[2019-06-22] MEDS ORDERED: MAG HYDROX/AL HYDROX/SIMETH 30 ML UDC PO PRN (15:00)
[2019-06-22] MEDS ORDERED: BISACODYL SUPP (10 MG) 10 MG/SUPP.RECT SUPP.RECT RC PRN (15:00)
[2019-06-22] MEDS ORDERED: Z GUARD REMEDY 2 OZ OINT TP PRN (15:00)
[2019-06-22] MEDS ORDERED: ACETAMINOPHEN 325 MG TABLET PO PRN (15:00)
[2019-06-22] MEDS ORDERED: ZOLPIDEM TARTRATE 5 MG TABLET PO PRN (15:00)
--- NOTE | 2019-06-22 15:48 | NUR ---
PT REFUSING TO ALLOW PHOTOS TO BE TAKEN AT THIS MOMENT. STATES HE DOES HAVE SACRAL REDNESS.
[2019-06-22 16:00] VITALS: BP_SYST 174; BP_DIAS 82; BP_DIAS 83
--- NOTE | 2019-06-22 16:17 | NUR ---
PT VOMITED X1 PT REFUSING ZOFRAN STATES IF HE EATS SOUP IT WILL MAKE HIM FEEL BETTER.
[2019-06-22] MEDS: ISOSORBIDE DINITRATE (20MG) 20 MG TABLET PO SCH ×2 (16:40→16:47)
[2019-06-22] MEDS: hydrALAZINE HCL 10 MG TABLET PO SCH ×3 (16:41→21:00)
[2019-06-22] MEDS: AMLODIPINE BESYLATE 5 MG TABLET PO SCH ×2 (16:41→16:48)
[2019-06-22] MEDS: FUROSEMIDE 20 MG TABLET PO SCH ×2 (16:41→16:48)
[2019-06-22] MEDS: CARVEDILOL 12.5 MG TABLET PO SCH (16:41)
--- NOTE | 2019-06-22 17:48 | NUR ---
PT REFUSED TO TAKE MEDICATIONS STATES IT MAKES HIM FEEL SICK AND WOULD MAKE HIM VOMIT. PT STATED HE WILL ONLY TAKE ONE PILL AND THAT WOULD BE COREG.
--- NOTE | 2019-06-22 18:26 | NUR ---
RN CLOSING NOTES PT IS IN BED WATCHING TV. BED IS LOCKED AND IN LOWEST POSITION WITH CALL LIGHT IN REACH. PT DENIES ANY SOB OR PAIN AT THIS TIME STATES HE SOMETIMES HAS NECK PAIN BUT HE DOES NOT WANT MEDICATION FOR IT AT THIS PRESENT TIME THE MEDICATIONS MAKE HIM NAUSEATED. PT REFUSED TO ALLOW FOR PHOTOS OF SACRUM HOWEVER DOES STATED THAT HE HAS REDNESS ON HIS BOTTOM. PT REFUSES TO PUT ON HOSPITAL GOWN. PT HAD 1 EPISODE OF VOMITING BUT HAS NOW CEASED. PT HAS A LEFT CHEST PERMA CATH USED FOR DIALYSIS BUT STATES IT IS NOT WORKING RIGHT NOW.
[2019-06-22 20:00] VITALS: BP 144/64
--- NOTE | 2019-06-22 20:00 | NUR ---
RN INITIAL NOTES RECEIVED REPORT FROM MAXINE.RECEIVED PT RESTING IN BED. NO SIGN OF DISTRESS. A&0X3. IV #20 IN L AC S/L. SR ON TELE MONITOR. ALL SAFETY PRECAUTIONS TAKEN. BED IN LOWEST AND LOCKED POSITION. CALL LIGHT WITH IN REACH. WILL CONT TO MONITOR.
[2019-06-22] MEDS: BACLOFEN (10 MG) 10 MG TABLET PO SCH (21:00)
[2019-06-22] MEDS: DONEPEZIL 5 MG TABLET PO SCH (21:07)
[2019-06-22] MEDS: TAMSULOSIN 0.4 MG CAP.SR.24H PO SCH (21:07)
[2019-06-22] MEDS: SENNOSIDES 8.6 MG TABLET PO SCH (21:08)
--- NOTE | 2019-06-22 21:12 | NUR ---
RN NOTES PT REFUSED ALL MEDS, CHARGE NURSE AWARE
[2019-06-23] VITALS: BP 156/69
[2019-06-23 04:00] VITALS: BP 129/66
[2019-06-23] MEDS: BACLOFEN (10 MG) 10 MG TABLET PO SCH ×3 (04:20→21:00)
[2019-06-23 06:34] LABS: BASOPHILS # (AUTO) 0.1 /CMM (0.0-0.2); BASOPHILS % (AUTO) 0.4 % (0.0-2.0); HEMATOCRIT 32 % (39-51); HEMOGLOBIN 10.5 g/dL (13.5-17.5); LYMPHOCYTES # (AUTO) 1.1 /CMM (0.8-4.8); LYMPHOCYTES % (AUTO) 8.5 % (20.0-44.0); MEAN CORPUSCULAR HGB CONC 32 g/dl (31.0-36.0); MEAN CORPUSCULAR VOLUME 89 fL (80-96); MONOCYTES # (AUTO) 1.2 /CMM (0.1-1.30); MONOCYTES % (AUTO) 9.8 % (2.0-12.0); NEUTROPHILS % (AUTO) 78.3 % (43.0-81.0); PLATELET COUNT (AUTO) 247 /CMM (150-450); RED BLOOD CELL COUNT(AUTO) 3.62 MIL/uL (4.5-6.0); WHITE BLOOD COUNT (AUTO) 12.7 K/uL (4.3-11.0)
[2019-06-23 06:49] LABS: CALCIUM, SERUM 8.4 mg/dL (8.5-10.1); CARBON DIOXIDE 25 mmol/L (21-32); CHLORIDE 99 mmol/L (98-107); CREATININE 3.1 mg/dL (0.6-1.3); GLUCOSE 106 mg/dL (74-106); MAGNESIUM 1.5 mg/dL (1.8-2.4); PHOSPHORUS 3.9 mg/dL (2.5-4.9); POTASSIUM 3.5 mmol/L (3.5-5.1); SODIUM SERUM 135 mmol/L (136-145); UREA NITROGEN, BLOOD 33 mg/dL (7-18)
[2019-06-23] MEDS ORDERED: ALTEPLASE CATHFLO 2 MG/VIAL XX ONE (07:00)
[2019-06-23 07:10] LABS: CHOLESTEROL 116 mg/dL (<200); HDL CHOLESTEROL 31 mg/dL (40-60); LDL 67 mg/dL (0-99); TRIGLYCERIDES 141 mg/dL (30-150)
--- NOTE | 2019-06-23 07:10 | NUR ---
RN OPENING NOTES PT IS AWAKE WATCHING TELEVISION. PT IS STILL REFUSING TO CHANGE INTO HOSPITAL GOWN AND ACCORDING TO INSURANCE AGENCY MANAGER RN REFUSING NIGHT MEDICATIONS. REPORT RECEIVED FROM INSURANCE AGENCY MANAGER RN WILL CONTINUE TO MONITOR.
--- NOTE | 2019-06-23 07:27 | NUR ---
RN CLOSING NOTES NO SIGNIFICANT CHANGE IN PATIENT CONDITION. PT REFUSED ALL MEDS. WILL ENDORSE TO AM RN FOR KIMBER
--- NOTE | 2019-06-23 07:58 | NUR ---
WOUND CARE CONSULT: PT PRESENTS WITH INCONTINENCE ASSOCIATED SKIN DAMAGE TO LEFT BUTTOCK WITH BLANCHABLE REDNESS TO SACRAL/BUTTOCKS AREA, PRESENT ON ADMISSION. RECOMMENDATIONS MADE FOR SKIN CARE AND PROTECTION. DISCUSSED WITH NURSING STAFF. PT DOES NOT ALLOW HEAD OF BED TO BE LOWERED STATING HAS A NECK PROBLEM. CURRENT NADIR SCORE IS 17. WILL SEE BECKY Andres MD IN AGREEMENT WITH PLAN OF CARE. Addendum: 06/23/19 at 0801 by RIVAS DAWSON WNDNU Amended: Links added.
[2019-06-23 08:00] VITALS: BP 160/68
[2019-06-23] MEDS: AMLODIPINE BESYLATE 5 MG TABLET PO SCH ×2 (09:00→17:00)
[2019-06-23] MEDS: ASPIRIN EC 81 MG TABLET.DR PO SCH (09:00)
[2019-06-23] MEDS: CARVEDILOL 12.5 MG TABLET PO SCH ×2 (09:00→17:00)
[2019-06-23] MEDS: ZINC SULFATE 220 MG CAPSULE PO SCH (09:00)
[2019-06-23] MEDS: VIT B CMPLX 3/FA/VIT C/BIOTIN 1 TAB TABLET PO SCH (09:00)
[2019-06-23] MEDS: ISOSORBIDE DINITRATE (20MG) 20 MG TABLET PO SCH ×3 (09:00→17:00)
[2019-06-23] MEDS: FUROSEMIDE 20 MG TABLET PO SCH ×2 (09:00→17:00)
[2019-06-23] MEDS: hydrALAZINE HCL 10 MG TABLET PO SCH ×4 (09:00→21:00)
--- NOTE | 2019-06-23 09:52 | NUR ---
P-T REFUSED AM MEDS STATING HE DOES NOT WANT THEM THEY ARE MAKING HIM ILL.
[2019-06-23] MEDS: Magnesium 1GM/D5W 100ML PREMIX 100 ML IV SCH ×2 (11:00→11:18)
--- NOTE | 2019-06-23 11:17 | NUR ---
PT REFUSING MAGNESIUM IV. EXPLAINED THE MEDICATION PT STILL REFUSING.
[2019-06-23 16:00] VITALS: BP 157/68
[2019-06-23] MEDS: HYDROCODONE/APAP 5/325MG 1 EACH TABLET PO PRN (16:38)
--- NOTE | 2019-06-23 17:06 | NUR ---
Met with patient,he is alert and pleasant. States he currently resides at [facility] [phone]. States he has no next of kin and he is self responsible. He can ambulate with supervision and assistive device as needed. Receives hemodialysis every MWF at [facility] [phone]. Current dc plan is to return to SNF per patient. Addendum: 06/23/19 at 1707 by FRANKI PIÑA RN Amended: Links added.
--- NOTE | 2019-06-23 19:25 | NUR ---
MS/RN NOTES PATIENT RECEIVED IN BED AT THIS TIME, WATCHING TV. NO S/S OF ACUTE DISTRESS NOTED, RESPIRATION EVEN AND UNLABORED, NO SOB NOTED, PATIENT ALERT AND ORIENTED X4, DENIES ANY PAIN OR DISCOMFORT AT THIS TIME. RIGHT AC 20 GAUGE NOTED WITH NO S/S OF INFECTION, INFILTRATION, LEFT UPPER CHEST PERMA CATH SITE NOTED WIT NO S/S OF INFECTION. SAFETY MAINTAINED, BED AT THE LOWEST LOCKED POSITION, CALL LIGHT WITHIN REACH. PER AM SHIFT NURSE PATIENT HAS BEEN REFUSING MEDICATION THROUGHOUT HIS SHIFT, WILL ENCOURAGE PATIENT TO TAKE MEDICATION AND WILL EXPLAIN RISKS AND BENEFITS OF NOT TAKING PRESCRIBED MEDICATION. HOB KEPT ELEVATED, WILL CONTINUE TO MONITOR PATIENT PER PLAN OF CARE.
--- NOTE | 2019-06-23 19:42 | NUR ---
RN CLOSING NOTES REPORT GIVEN TO PROFESSOR OF INDUSTRIAL TECHNOLOGY RN. PT HAS BEEN REFUSING ALL MEDICATIONS. PT WAS SUPPOSED TO RECEIVE HD TODAY HOWEVER DIALYSIS NURSE STATED SHE HAD AN EMERGENCY AND WILL HAVE TO DIALYSIS PT FIRST THING IN THE MORNING. PT STATED HE IS IN NO PAIN AND NOT HAVING SOB. PT IS IN BED IN SEMI SCHULTZ POSITION. WILL ENDORSE CONTINUATION OF CARE TO PROFESSOR OF INDUSTRIAL TECHNOLOGY RN. BED IS LOCKED AND IN LOWEST POSITION.
[2019-06-23 20:00] VITALS: BP 140/63
[2019-06-23] MEDS: DONEPEZIL 5 MG TABLET PO SCH (21:03)
[2019-06-23] MEDS: TAMSULOSIN 0.4 MG CAP.SR.24H PO SCH (21:03)
[2019-06-23] MEDS: ATORVASTATIN 10 MG TABLET PO SCH (21:04)
[2019-06-23] MEDS: SENNOSIDES 8.6 MG TABLET PO SCH (21:04)
--- NOTE | 2019-06-23 21:05 | NUR ---
PATIENT CONTINUE TO REFUSE ALL HIS DUE MEDICATION AT THIS TIME, INCLUDING HIS BLOOD-PRESSURE MEDICATION, RISKS AND BENEFITS EXPLAINED, ASKED PATIENT 3 TIMES, HE STILL DENIED. CALLED VIDEO CONTROL ENGINEER CABRERA LANGSTON AT THIS TIME, MADE AWARE, WITH NO NEW ORDER
[2019-06-24] VITALS: BP 138/76
[2019-06-24] MEDS: BACLOFEN (10 MG) 10 MG TABLET PO SCH ×3 (04:37→20:45)
--- NOTE | 2019-06-24 04:37 | NUR ---
PATIENT REFUSED HIS 0500 BACLOFEN MEDICATION, RISKS AND BENEFITS EXPLAINED, OFFERED X3, STILL REFUSED
--- NOTE | 2019-06-24 06:47 | NUR ---
MS/RN EXIT NOTES PATIENT REMAINED IN BED, RESTING COMFORTABLY AT THIS TIME, NO S/S OF ACUTE DISTRESS NOTED, RESPIRATION EVEN AND UNLABORED, NO C/O ANY PAIN OR DISCOMFORT AT THIS TIME. RIGHT AC 20 GAUGE NOTED WITH NO S/S OF INFECTION/INFILTRATION. HOB ELEVATED. PATIENT CONTINUE TO REFUSE MEDICATIONS, RISKS AND BENEFITS EXPLAINED, KEPT CLEAN AND DRY. SAFETY MAINTAINED, BED AT THE LOWEST LOCKED POSITION, CALL LIGHT WITHIN REACH, ENDORSE TO AM SHIFT NURSE FOR KIMBER.
--- NOTE | 2019-06-24 07:30 | NUR ---
INITIAL PATIENT RECEIVED IN BED AT THIS TIME, WATCHING TV. NO S/S OF ACUTE DISTRESS NOTED, RESPIRATION EVEN AND UNLABORED, NO SOB NOTED, PATIENT ALERT AND ORIENTED X4, DENIES ANY PAIN OR DISCOMFORT AT THIS TIME. RIGHT AC 20 GAUGE NOTED WITH NO S/S OF INFECTION, INFILTRATION, LEFT UPPER CHEST PERMA CATH SITE NOTED WIT NO S/S OF INFECTION. SAFETY MAINTAINED, BED AT THE LOWEST LOCKED POSITION, CALL LIGHT WITHIN REACH.PER PM SHIFT NURSE PATIENT HAS BEEN REFUSING MEDICATION THROUGHOUT HIS SHIFT, WILL ENCOURAGE PATIENT TO TAKE MEDICATION AND WILL EXPLAIN RISKS AND BENEFITS OF NOT TAKING PRESCRIBED MEDICATION. HOB KEPT ELEVATED, WILL CONTINUE TO MONITOR PATIENT PER PLAN OF CARE.
[2019-06-24 08:00] VITALS: BP_SYST 131; BP_SYST 170; BP_DIAS 64; BP_DIAS 78
--- NOTE | 2019-06-24 08:17 | NUR ---
PT REFUSING ALL MEDICATION WILL CALL MD VERDUZCO
[2019-06-24] MEDS: VIT B CMPLX 3/FA/VIT C/BIOTIN 1 TAB TABLET PO SCH (09:00)
[2019-06-24] MEDS: CARVEDILOL 12.5 MG TABLET PO SCH ×2 (09:00→16:26)
[2019-06-24] MEDS: ASPIRIN EC 81 MG TABLET.DR PO SCH (09:00)
[2019-06-24] MEDS: AMLODIPINE BESYLATE 5 MG TABLET PO SCH ×2 (09:00→16:27)
[2019-06-24] MEDS: ISOSORBIDE DINITRATE (20MG) 20 MG TABLET PO SCH ×3 (09:00→16:26)
[2019-06-24] MEDS: ZINC SULFATE 220 MG CAPSULE PO SCH (09:00)
[2019-06-24] MEDS: hydrALAZINE HCL 10 MG TABLET PO SCH ×4 (09:00→20:44)
[2019-06-24] MEDS: FUROSEMIDE 20 MG TABLET PO SCH ×2 (09:00→16:27)
[2019-06-24] MEDS ORDERED: hydrALAZINE HCL IV 20 MG VIAL IV PRN (12:00)
[2019-06-24] MEDS: Magnesium 1GM/D5W 100ML PREMIX 100 ML IV SCH ×2 (12:00→13:00)
--- NOTE | 2019-06-24 12:42 | NUR ---
PT CONTINUES TO REFUSE MEDICATIONS INCLUDING PO, IV PAGING MD VERDUZCO
[2019-06-24 16:00] VITALS: BP 154/69
--- NOTE | 2019-06-24 17:33 | NUR ---
CLOSING PATIENT REMAINED IN BED, RESTING COMFORTABLY AT THIS TIME, NO S/S OF ACUTE DISTRESS NOTED, RESPIRATION EVEN AND UNLABORED, NO C/O ANY PAIN OR DISCOMFORT AT THIS TIME. RIGHT AC 20 GAUGE NOTED WITH NO S/S OF INFECTION/INFILTRATION. HOB ELEVATED. PATIENT CONTINUE TO REFUSE MEDICATIONS, RISKS AND BENEFITS EXPLAINED, KEPT CLEAN AND DRY. SAFETY MAINTAINED, BED AT THE LOWEST LOCKED POSITION, CALL LIGHT WITHIN REACH, ENDORSE TO PM SHIFT NURSE FOR CONTINUITY OF CARE
--- NOTE | 2019-06-24 19:25 | NUR ---
MS/RN ENTRY NOTES PATIENT RECEIVED IN BED AT THIS TIME, WATCHING TV. NO S/S OF ACUTE DISTRESS NOTED, RESPIRATION EVEN AND UNLABORED, NO SOB NOTED, PATIENT ALERT AND ORIENTED X4, DENIES ANY PAIN OR DISCOMFORT AT THIS TIME. RIGHT AC 20 GAUGE NOTED WITH NO S/S OF INFECTION, INFILTRATION, LEFT UPPER CHEST PERMA CATH SITE NOTED WITH NO S/S OF INFECTION. PATIENT S/P HD, WITH NO OUTPUT SAFETY MAINTAINED, BED AT THE LOWEST LOCKED POSITION, CALL LIGHT WITHIN REACH. PER AM SHIFT NURSE PATIENT HAS BEEN REFUSING MEDICATION THROUGHOUT HIS SHIFT, WILL CONTINUE TO ENCOURAGE PATIENT TO TAKE MEDICATION AND WILL EXPLAIN RISKS AND BENEFITS OF NOT TAKING PRESCRIBED MEDICATION. HOB KEPT ELEVATED, WILL CONTINUE TO MONITOR PATIENT PER PLAN OF CARE.
[2019-06-24 20:00] VITALS: BP 157/71
[2019-06-24] MEDS: SENNOSIDES 8.6 MG TABLET PO SCH (21:01)
[2019-06-24] MEDS: ATORVASTATIN 10 MG TABLET PO SCH (21:01)
[2019-06-24] MEDS: TAMSULOSIN 0.4 MG CAP.SR.24H PO SCH (21:01)
[2019-06-24] MEDS: DONEPEZIL 5 MG TABLET PO SCH (21:01)
--- NOTE | 2019-06-24 21:01 | NUR ---
PATIENT CONTINUE TO REFUSE DUE MEDICATIONS, RISKS AND BENEFITS EXPLAINED, OFFERED 3 TIMES, MD AWARE. WILL CONTINUE TO MONITOR PATIENT CONDITION CLOSELY.
[2019-06-25] VITALS: BP 148/76
[2019-06-25 04:00] VITALS: BP 142/59
[2019-06-25] MEDS: BACLOFEN (10 MG) 10 MG TABLET PO SCH ×3 (04:49→21:00)
[2019-06-25 06:27] LABS: BASOPHILS # (AUTO) 0.1 /CMM (0.0-0.2); BASOPHILS % (AUTO) 0.3 % (0.0-2.0); EOSINOPHILS % (AUTO) 1.7 % (0.0-6.0); HEMATOCRIT 34 % (39-51); HEMOGLOBIN 10.8 g/dL (13.5-17.5); LYMPHOCYTES # (AUTO) 1.3 /CMM (0.8-4.8); LYMPHOCYTES % (AUTO) 8.8 % (20.0-44.0); MEAN CORPUSCULAR HGB CONC 32 g/dl (31.0-36.0); MEAN CORPUSCULAR VOLUME 89 fL (80-96); MONOCYTES # (AUTO) 1.5 /CMM (0.1-1.30); MONOCYTES % (AUTO) 10.5 % (2.0-12.0); NEUTROPHILS # (AUTO) 11.3 /CMM (1.8-8.9); NEUTROPHILS % (AUTO) 78.7 % (43.0-81.0); PLATELET COUNT (AUTO) 302 /CMM (150-450); RED BLOOD CELL COUNT(AUTO) 3.74 MIL/uL (4.5-6.0); WHITE BLOOD COUNT (AUTO) 14.4 K/uL (4.3-11.0)
--- NOTE | 2019-06-25 06:35 | NUR ---
MS/RN ENTRY NOTES PATIENT REMAINED IN BED, SLEEPING AT THIS TIME. NO S/S OF ACUTE DISTRESS NOTED, RESPIRATION EVEN AND UNLABORED, NO SOB NOTED, NO S/S OF PAIN NOTED AT THIS TIME. RIGHT AC 20 GAUGE NOTED WITH NO S/S OF INFECTION, INFILTRATION, LEFT UPPER CHEST PERMA CATH SITE NOTED WITH NO S/S OF INFECTION. SAFETY MAINTAINED, BED AT THE LOWEST LOCKED POSITION, CALL LIGHT WITHIN REACH. HOB KEPT ELEVATED, WILL ENDORSE TO AM SHIFT NURSE FOR KIMBER.
[2019-06-25 06:39] LABS: CALCIUM, SERUM 8.5 mg/dL (8.5-10.1); CARBON DIOXIDE 26 mmol/L (21-32); CHLORIDE 97 mmol/L (98-107); CREATININE 3.2 mg/dL (0.6-1.3); GLUCOSE 128 mg/dL (74-106); MAGNESIUM 1.3 mg/dL (1.8-2.4); PHOSPHORUS 3.9 mg/dL (2.5-4.9); POTASSIUM 3.5 mmol/L (3.5-5.1); SODIUM SERUM 135 mmol/L (136-145); UREA NITROGEN, BLOOD 31 mg/dL (7-18)
--- NOTE | 2019-06-25 07:15 | NUR ---
MS RN OPENING NOTE RECEIVED REPORT FROM NOC SHIFT NURSE. PT AWAKE IN BED, ALERT AND ORIENTED X 4, ON ROOM AIR, SATURATING WELL, NO SIGNS OF RESPIRATORY DISTRESS NOTED, RESPIRATIONS EASY AND UNLABORED. BED IN LOW POSITION, LOCKED, CALL LIGHT WITHIN REACH.
[2019-06-25 08:00] VITALS: BP 156/86
[2019-06-25] MEDS: CARVEDILOL 12.5 MG TABLET PO SCH ×2 (08:13→16:27)
--- NOTE | 2019-06-25 08:15 | NUR ---
PT REFUSED ALL AM MEDICATIONS EXCEPT FOR COREG. EXPLAINED THE IMPORTANCE OF TAKING PRESCRIBED MEDICATIONS AND THE RISKS OF NOT TAKING THEM. PT REFUSED.
[2019-06-25] MEDS: AMLODIPINE BESYLATE 5 MG TABLET PO SCH ×2 (08:16→16:30)
[2019-06-25] MEDS: VIT B CMPLX 3/FA/VIT C/BIOTIN 1 TAB TABLET PO SCH (08:16)
[2019-06-25] MEDS: ISOSORBIDE DINITRATE (20MG) 20 MG TABLET PO SCH ×3 (08:17→16:29)
[2019-06-25] MEDS: FUROSEMIDE 20 MG TABLET PO SCH ×2 (08:17→16:29)
[2019-06-25] MEDS: ZINC SULFATE 220 MG CAPSULE PO SCH (08:17)
[2019-06-25] MEDS: ASPIRIN EC 81 MG TABLET.DR PO SCH (08:18)
[2019-06-25] MEDS: hydrALAZINE HCL 10 MG TABLET PO SCH ×5 (08:18→21:00)
--- NOTE | 2019-06-25 12:18 | NUR ---
PT REFUSED ALL SCHEDULED 13:00 MEDICATIONS
[2019-06-25 16:00] VITALS: BP 157/81
--- NOTE | 2019-06-25 18:55 | NUR ---
MS RN CLOSING NOTE PT AWAKE IN BED, ALERT AND ORIENTED X 4, ON ROOM AIR, SATURATING WELL NO SINGS OF RESPIRATORY DISTRESS NOTED. RIGHT AC G20 PATENT, FLUSHED WITH NS, INTACT. BED IN LOW POSITION, LOCKED, CALL LIGHT WITHIN REACH. PROVIDED SAFETY AND COMFORT TO PT THROUGHOUT SHIFT- PT REFUSED MOST SCHEDULED MEDICATIONS. WILL ENDORSE TO NOC SHIFT NURSE.
--- NOTE | 2019-06-25 19:30 | NUR ---
RECEIVED PATIENT IN BED AWAKE. AO X 3, ABLE TO MAKE NEEDS KNOWN. NO ACUTE DISTRESS NOTED. DENIES ANY PAIN AT THIS TIME. IV SITE PATENT, INTACT; FLUSHED. SAFETY REMINDERS GIVEN. ON LOW BED WITH BILATERAL UPPER SIDE RAILS UP. CALL WITHIN EASY REACH. WILL CONTINUE TO MONITOR.
[2019-06-25 20:00] VITALS: BP 136/66
[2019-06-25] MEDS: DONEPEZIL 5 MG TABLET PO SCH (21:27)
[2019-06-25] MEDS: ATORVASTATIN 10 MG TABLET PO SCH (21:27)
[2019-06-25] MEDS: SENNOSIDES 8.6 MG TABLET PO SCH (21:27)
[2019-06-25] MEDS: TAMSULOSIN 0.4 MG CAP.SR.24H PO SCH (21:27)
--- NOTE | 2019-06-25 22:00 | NUR ---
PATIENT REFUSED ALL DUE MEDS FOR 2099 AND 2199. EDUCATION GIVEN. PATIENT STILL STRONGLY REFUSED. MEDS NOT ADMINISTERED.
[2019-06-26 04:00] VITALS: BP 149/66
[2019-06-26] MEDS: BACLOFEN (10 MG) 10 MG TABLET PO SCH ×3 (05:00→21:00)
--- NOTE | 2019-06-26 06:00 | NUR ---
PATIENT ASLEEP, EASILY AROUSABLE. RESPIRATIONS EVEN. NO SIGNS OF PAIN NOTED. PATIENT REFUSED ALL DUE MEDS FOR THE SHIFT, DESPITE EDUCATION ON BENEFITS OF MEDICATION AND RISKS OF NOT TAKING THEM. NEEDS ATTENDED. SAFETY PRECAUTIONS AND COMFORT MEASURES IN PLACE. WILL GIVE REPORT TO DAY SHIFT FOR CONTINUITY OF CARE.
--- NOTE | 2019-06-26 06:30 | NUR ---
PATIENT REFUSED TO HAVE PHOTO TAKEN OF SACRAL/BUTTOCK REDNESS.
--- NOTE | 2019-06-26 07:30 | NUR ---
MS RN INITIAL NOTES RECEIVED PT IN BED, A/OX4. ON ROOM AIR WITH NO S/SX OF RESP DISTRESS. C/O PAIN IN RIGHT SIDE OF NECK. PER PT, HE FELL 2 WEEKS AGO. R THUMB IV SITE NO S/SX OF INFECTION. FLUSHING WELL. BED IN LOCKED/LOWEST POSITION. CALL LIGHT IN REACH. WILL CONT TO MONITOR.
[2019-06-26 08:00] VITALS: BP 162/72
[2019-06-26] MEDS: ASPIRIN EC 81 MG TABLET.DR PO SCH (09:00)
[2019-06-26] MEDS: ISOSORBIDE DINITRATE (20MG) 20 MG TABLET PO SCH ×3 (09:00→17:00)
[2019-06-26] MEDS: hydrALAZINE HCL 10 MG TABLET PO SCH ×4 (09:00→21:00)
[2019-06-26] MEDS: CARVEDILOL 12.5 MG TABLET PO SCH ×2 (09:00→17:00)
[2019-06-26] MEDS: VIT B CMPLX 3/FA/VIT C/BIOTIN 1 TAB TABLET PO SCH (09:00)
[2019-06-26] MEDS: ZINC SULFATE 220 MG CAPSULE PO SCH (09:00)
[2019-06-26] MEDS: AMLODIPINE BESYLATE 5 MG TABLET PO SCH ×2 (09:00→17:00)
[2019-06-26] MEDS: FUROSEMIDE 20 MG TABLET PO SCH ×2 (09:21→17:00)
--- NOTE | 2019-06-26 11:20 | NUR ---
PATIENT REFUSED CT CERVICAL SPINE.
--- NOTE | 2019-06-26 12:17 | NUR ---
ms rn notes pt refused ct scan, states: "i cant go in and out of that machine." notified dr foster, ordered xray instead.
[2019-06-26 12:32] LABS: APPEARANCE,URINE TURBID (CLEAR); BILIRUBIN,URINE NEGATIVE (NEGATIVE); BLOOD, URINE 3+ Ery/uL (NEGATIVE); COLOR,URINE YELLOW (YELLOW); KETONES,URINE NEGATIVE (NEGATIVE); LEUKOCYTE ESTERASE ,URINE 3+ (NEGATIVE); NITRITE, URINE POSITIVE (NEGATIVE); PROTEIN,URINE 3+ mg/dl (NEGATIVE); UGLUCOSE NEGATIVE (NEGATIVE); UROBILINOGEN,URINE 0.2 EU/dL (0.2)
[2019-06-26 12:53] LABS: BACTERIA,URINE MANY /HPF (None Seen); RBC,URINE 21-50 /HPF (0-2); WBC,URINE TOO NUMEROUS TO COUN /HPF (0-3)
[2019-06-26 12:54] LABS: SQUAMOUS EPITHELIAL CELL,UR FEW /HPF (None Seen)
[2019-06-26] MEDS: Magnesium 1GM/D5W 100ML PREMIX 100 ML IV SCH ×2 (14:29→15:26)
[2019-06-26] MEDS ORDERED: Magnesium 1GM/D5W 100ML PREMIX PIGGYBACK IV ONE (15:00)
[2019-06-26 16:00] VITALS: BP 161/75
--- NOTE | 2019-06-26 17:00 | NUR ---
ms rn notes pt refused bp meds; pt is also scheduled for hd this evening. pt educated on risks/benefits of tx adherence. pt understands; will wait until hd completed.
--- NOTE | 2019-06-26 17:16 | NUR ---
ms rn notes dr foster aware of urinalysis results and cervical xray
--- NOTE | 2019-06-26 19:17 | NUR ---
ms rn notes dr livingston called to notify pt will be getting a permacath placed; av fistula to be placed at a later date. orders: npo post midnight and bmp for am prior to surgery, surgery scheduled for 0700. pt notified. endorsed to pm nurse for karoline.
--- NOTE | 2019-06-26 19:24 | NUR ---
ms rn end of shift notes pt endorsed to pm nurse for karoline. pt stable in bed, scheduled for hd tonight and surgery in am. safety measures in place.
[2019-06-26 20:00] VITALS: BP 139/69
[2019-06-26 20:05] VITALS: BP 139/69
[2019-06-26] MEDS: TAMSULOSIN 0.4 MG CAP.SR.24H PO SCH (21:15)
[2019-06-26] MEDS: SENNOSIDES 8.6 MG TABLET PO SCH (21:15)
[2019-06-26] MEDS: ATORVASTATIN 10 MG TABLET PO SCH (21:15)
[2019-06-26] MEDS: DONEPEZIL 5 MG TABLET PO SCH (21:15)
[2019-06-27 04:00] VITALS: BP 114/67
[2019-06-27] MEDS: BACLOFEN (10 MG) 10 MG TABLET PO SCH ×3 (04:00→21:06)
[2019-06-27 04:01] VITALS: BP 114/67
[2019-06-27 05:51] LABS: CALCIUM, SERUM 8.5 mg/dL (8.5-10.1); CARBON DIOXIDE 25 mmol/L (21-32); CHLORIDE 98 mmol/L (98-107); CREATININE 3.5 mg/dL (0.6-1.3); GLUCOSE 146 mg/dL (74-106); SODIUM SERUM 132 mmol/L (136-145); UREA NITROGEN, BLOOD 39 mg/dL (7-18)
--- NOTE | 2019-06-27 07:00 | NUR ---
RN AM SHIFT NOTE PATIENT ALERT ORIENTED X3. OR ARRIVED TO TRANSPORT PATIENT TO OR FOR HD PLACEMENT. PATIENT WAS NPO PER MD ORDER. IV PATENT AND INTACT, VITALS WNL. RN ASSIST TRANSFER TO [facility], PATIENT CONSENT AND PROCEDURE EXPLAINED PRIOR TO HD PLACEMENT. NO MEDICATION GIVEN BY RN BY MOUTH AT THIS TIME. WILL ASSESS AFTER. FNS ORDER PLACED FOR RENAL STANDARD UPON ARRIVAL AFTER SURGERY. RN WILL ASSESS SWALLOWING STATUS PRIOR TO GIVING THE PATIENT ANYTHING TO EAT. AWITING ARRIVAL OF PATIENT AFTER SURGERY.
[2019-06-27] MEDS ORDERED: LIDOCAINE HCL/MPF 1% 30 ML VIAL IJ ONE (07:02)
[2019-06-27] MEDS ORDERED: ANESTHESIA TRAY IN PYXIS 1 EA TRAY MC ONE (07:02)
[2019-06-27] MEDS ORDERED: HEPARIN SODIUM, PORCINE 1,000 UNIT/ML VIAL ONE (07:02)
--- NOTE | 2019-06-27 09:00 | NUR ---
DRIVER LICENSE EXAMINER NOTE PATIENT RETURNED FROM HD PLACEMENT. ALERT ORIENTED STABLE. BLOOD PRESSURE ELEVATED RN ADMINISTER PO MEDICATION PER MD ORDERS. PATIENT ABLE TO SWALLOW WELL NO DISORIENTATION, ABLE TO EAT. SOME TROUBLE REPOSITIONING RN AND SENIOR RESEARCH CONSULTANT ASSIST PATIENT REFUSED REPOSITIONING AND WANTS TO DO IT ON HIS OWN. STATED HE HAS A SORE ON BOTTOM, RN REINFORCED NEED FOR REPOSITIONG. SURGERY AT BEDSIDE ORDERS PER DR BEINTEZ NO BP OR IV ON RT ARM MD MAY PERFORM PLACMENT OF AV FISTULA BUT NO SPECIFIC DATE AND NO ORDERS OR CONSENT AT THIS TIME. IN SURGERY RT PERMACATH WAS PLACED AND IS PATENT, WORKING WELL.
[2019-06-27] MEDS: hydrALAZINE HCL 10 MG TABLET PO SCH ×4 (09:23→21:06)
[2019-06-27] MEDS: ZINC SULFATE 220 MG CAPSULE PO SCH (09:23)
[2019-06-27] MEDS: VIT B CMPLX 3/FA/VIT C/BIOTIN 1 TAB TABLET PO SCH (09:23)
[2019-06-27] MEDS: ASPIRIN EC 81 MG TABLET.DR PO SCH (09:23)
[2019-06-27] MEDS: FUROSEMIDE 20 MG TABLET PO SCH ×2 (09:23→17:43)
[2019-06-27] MEDS: AMLODIPINE BESYLATE 5 MG TABLET PO SCH ×2 (09:24→17:00)
[2019-06-27] MEDS: CARVEDILOL 12.5 MG TABLET PO SCH ×2 (09:24→17:46)
[2019-06-27] MEDS: ISOSORBIDE DINITRATE (20MG) 20 MG TABLET PO SCH ×3 (09:45→17:45)
[2019-06-27 12:00] VITALS: BP 115/75
--- NOTE | 2019-06-27 13:00 | NUR ---
RN NOTE PATIENT REFUSED MEDS RN ASSESS PATIENTS BLOOD PRESSURE PRIOR TO ADMINISTERING 2 ANTIHYPERTINSIVES PER MD ORDER. PATIENT SYSTOLIC WAS 115 AND PATIENT REFUSED BP MEDICATIONS.
[2019-06-27] MEDS ORDERED: FEE PK DOSING 1 MIN EA MC ONE (13:10)
[2019-06-27] MEDS: VANCOMYCIN 1 GM in IV D5W 250 ML IV ONE ×2 (13:43→16:44)
--- NOTE | 2019-06-27 13:43 | NUR ---
RN NOTE EMESIS PATIENT HAD ONE EPISODE OF VOMITTING AND NAUSEA. RN OFFERED MEDICATION PER MED PROFILE, PATIENT REFUSED MULTIPLE TIMES. RN EXPLAINED RISKS AND BENEFITS TO MEDICATION , HE STATED " IT MAKES HIM SICK AND HE [id number] WANT IT.:" HEAD OF BED ELEVATED, VITALS TAKEN WNL PRESSURE 115/75 HEART RATE 75 OXYGEN 95% NO DISTRESS AT THIS TIME. CONTINUE MONITORING.
--- NOTE | 2019-06-27 13:45 | NUR ---
RN NOTE VANCO/SAP HANA DEVELOPER SPOKE WITH DATA WAREHOUSING ENGINEER DIRECTLY ON UNIT. PATIENT WILL BE DIALIZED TOMORROW 06/28/19 NOT TODAY. NO VANCO TO BE ADMINISTERED AT THIS TIME.
[2019-06-27] MEDS: ONDANSETRON HCL/PF 4 MG/2 ML VIAL IVP PRN (15:59)
[2019-06-27 16:00] VITALS: BP 121/70
[2019-06-27] MEDS ORDERED: VANCOMYCIN HCL 1 GM in IV D5W 250 ML IV STA (16:26)
--- NOTE | 2019-06-27 18:28 | NUR ---
RN CLOSING NOTE PATIENT AWAKE AND ALERT, BOUTS OF FRUSTRATION TX AND MEDICATION REFUSAL. RN DID BEST TO EDUCATE PATIENT ON HEALTH STATUS MEDICATION ADMINISTRATION RISKS AND BENEFITS OF TREATMENT. SIDE RAILS UP, CALL LIGHT WITHIN REACH, BED IN LOW POSITION. ALL NEEDS MET AT THIS TIME. DR BENITEZ CALLED TO CONFIRM SURGERY TO BE DONE 06/29 LEFT AV SHUNT INSERTION. CONSENT SIGNED AND IN CHART. RN MADE NOTE DO NOT DO BLOOD DRAW ON LEFT ARM OR BLOOD PRESSURE. DR PRECIADO AWARE PATIENT NEEDS TO REMAIN IN HOSPITAL FOR PROCEDURE. INFECTIOUS DISEASE ORDERED BLOOD CULTURES TO BE DONE DURING DIALYSIS TX ON 06/28. DR PRECIADO ORDERED BLOOD CULTURES TO BE DONE TODAY 06/27 DUE TO CURRENT INFECTION. LAB AWARE OF TWO SEPARATE BLOOD CULTURES.
--- NOTE | 2019-06-27 19:30 | NUR ---
RN NOTE, PATIENT IN BED ALERT ORIENTED X3, ABLE TO VERBALIZED NEEDS AND CONCERNS, BREATHING EVEN AND UNLABORED, NO S/S OF SOB/ACUTE DISTRESS NOTED, S/P HD PLACEMENT SUBCLAVIAN IN RCW INSERTION, AND S/P REMOVAL OF PRIOR HD CATH IN LCW NO ABNORMALITY NOTED IN BOTH SITES, PER PRIOR NURSE, PATIENT WITH EPISODE OF EMESIS, NO EMESIS AT THIS TIME, NO C/O PAIN OR DISCOMFORT, WILL CONTINUE TO MONITOR, CLOSELY.
[2019-06-27 20:00] VITALS: BP 111/64
[2019-06-27] MEDS: DONEPEZIL 5 MG TABLET PO SCH (21:07)
[2019-06-27] MEDS: SENNOSIDES 8.6 MG TABLET PO SCH (21:07)
[2019-06-27] MEDS: TAMSULOSIN 0.4 MG CAP.SR.24H PO SCH (21:07)
[2019-06-27] MEDS: ATORVASTATIN 10 MG TABLET PO SCH (21:07)
[2019-06-28 04:00] VITALS: BP 110/62
[2019-06-28] MEDS: BACLOFEN (10 MG) 10 MG TABLET PO SCH ×4 (05:02→21:55)
--- NOTE | 2019-06-28 06:35 | NUR ---
RN NOTE, PATIENT IN BED SLEEPING AT THIS TIME, BREATHING EVEN AND UNLABORED, NO S/S OF SOB/ACUTE DISTRESS NOTED, PATIENT WITH EPISODE OF EMESIS, NO EMESIS DURING THE NIGHT, NO C/O PAIN OR DISCOMFORT, NO SIGNIFICANT CHANGE IN CONDITION, WILL ENDORSE CONTINUITY OF CARE TO ONCOMING NURSE, WILL HAVE HEMODIALYSIS TODAY PER MD TO GET BLOOD CULTURE DURING HEMODIALYSIS, WILL ENDORSE TO ONCOMING NURSE.
--- NOTE | 2019-06-28 07:30 | NUR ---
RN NOTES RECEIVED PATIENT IN BED, ASLEEP BUT EASILY AWAKEN BY VERBAL STIMULI, ABLE TO MAKE NEEDS KNOWN AND RESPONDS APPROPRIATELY, ON ROOM AIR, BREATHING UNLABORED, NO SOB NOTED AT THIS TIME. NO COMPLAINTS OF PAIN OF ANY KIND. IV ACCES NOTED ON THE R THUMB IN PLACE, DRESSING INTACT AND FLUSHES WELL. PATIENT ENCOURAGE TO VERBALIZE FEELINGS AND CONCERNS, CALL FOR HELP AND ASSISTANCE, SAFETY MEASURES OBSERVED AND MAINTAINED, SRX2, BED LOW AND LOCKED POSITION, CALL LIGHT PLACED WITHIN REACH, WILL CONTINUE TO MONITOR PATIENT CLOSELY
[2019-06-28 07:33] LABS: FREE PSA 0.17 ng/mL (0.00-45); PROSTATE SPECIFIC ANTIGEN SCR 0.51 ng/mL (0.00-4.00)
[2019-06-28 08:00] VITALS: BP 144/74
[2019-06-28] MEDS: AMLODIPINE BESYLATE 5 MG TABLET PO SCH ×2 (09:00→17:30)
[2019-06-28] MEDS: hydrALAZINE HCL 10 MG TABLET PO SCH ×4 (09:00→21:00)
[2019-06-28] MEDS: CARVEDILOL 12.5 MG TABLET PO SCH ×2 (09:00→17:30)
[2019-06-28] MEDS: ISOSORBIDE DINITRATE (20MG) 20 MG TABLET PO SCH ×3 (09:00→17:31)
[2019-06-28] MEDS: FUROSEMIDE 20 MG TABLET PO SCH ×2 (09:14→17:30)
[2019-06-28] MEDS: VIT B CMPLX 3/FA/VIT C/BIOTIN 1 TAB TABLET PO SCH (09:14)
[2019-06-28] MEDS: ASPIRIN EC 81 MG TABLET.DR PO SCH (09:14)
[2019-06-28] MEDS: ZINC SULFATE 220 MG CAPSULE PO SCH (09:14)
[2019-06-28 11:19] LABS: BASOPHILS # (AUTO) 0.3 /CMM (0.0-0.2); BASOPHILS % (AUTO) 1.8 % (0.0-2.0); EOSINOPHILS % (AUTO) 1.7 % (0.0-6.0); HEMATOCRIT 29 % (39-51); HEMOGLOBIN 9.6 g/dL (13.5-17.5); LYMPHOCYTES % (AUTO) 6.4 % (20.0-44.0); MEAN CORPUSCULAR HGB CONC 33 g/dl (31.0-36.0); MEAN CORPUSCULAR VOLUME 90 fL (80-96); MONOCYTES # (AUTO) 1.1 /CMM (0.1-1.30); MONOCYTES % (AUTO) 7.1 % (2.0-12.0); NEUTROPHILS # (AUTO) 13.2 /CMM (1.8-8.9); PLATELET COUNT (AUTO) 294 /CMM (150-450); RED BLOOD CELL COUNT(AUTO) 3.26 MIL/uL (4.5-6.0)
[2019-06-28 11:52] LABS: CALCIUM, SERUM 8.4 mg/dL (8.5-10.1); CARBON DIOXIDE 21 mmol/L (21-32); CHLORIDE 95 mmol/L (98-107); CREATININE 4.1 mg/dL (0.6-1.3); GLUCOSE 148 mg/dL (74-106); POTASSIUM 3.8 mmol/L (3.5-5.1); SODIUM SERUM 131 mmol/L (136-145); UREA NITROGEN, BLOOD 47 mg/dL (7-18)
[2019-06-28 12:00] VITALS: BP 136/66
--- NOTE | 2019-06-28 12:00 | NUR ---
RN NOTES PATIENT DONE WITH DIALYSIS TREATMENT. ABLE TO TOLERATE THE PROCEDURE WELL. 500ML REMOVED
[2019-06-28 12:03] LABS: PHOSPHORUS 5.6 mg/dL (2.5-4.9)
[2019-06-28] MEDS ORDERED: VANCOMYCIN 500 MG in IV D5W 100 ML IV PRN (13:30)
[2019-06-28] MEDS ORDERED: CEFAZOLIN 1 GM in IV NS 0.9% 50 ML IV ONE (14:00)
[2019-06-28 20:00] VITALS: BP 108/61
[2019-06-28] MEDS: CEFAZOLIN 500 MG in IV NS 0.9% 50 ML IV SCH (21:53)
[2019-06-28] MEDS: ATORVASTATIN 10 MG TABLET PO SCH ×2 (21:55→22:00)
[2019-06-28] MEDS: SENNOSIDES 8.6 MG TABLET PO SCH ×2 (21:55→22:00)
[2019-06-28] MEDS: TAMSULOSIN 0.4 MG CAP.SR.24H PO SCH ×2 (21:55→22:00)
[2019-06-28] MEDS: DONEPEZIL 5 MG TABLET PO SCH ×2 (21:55→22:00)
--- NOTE | 2019-06-28 22:05 | NUR ---
RN NOTE PATIENT IS ALERT/ORIENTED X 3, REFUSED NIGHT MEDICATIONS SCHEDULED, EXPLAINED ALL RISKS AND BENEFITS, STILL REFUSED, MD IS AWARE, CHARGE NURSE IS AWARE
[2019-06-29 04:00] VITALS: BP 115/68
[2019-06-29] MEDS: BACLOFEN (10 MG) 10 MG TABLET PO SCH ×3 (05:00→21:02)
--- NOTE | 2019-06-29 05:43 | NUR ---
RN NOTE PATIENT IS ALERT/ORIENTED X 3, REFUSED BACLOFEN MEDICATIONS SCHEDULED 5AM, EXPLAINED ALL RISKS AND BENEFITS, STILL REFUSED
[2019-06-29] MEDS ORDERED: ANESTHESIA TRAY IN PYXIS 1 EA TRAY MC ONE (06:58)
[2019-06-29] MEDS ORDERED: LIDOCAINE HCL/MPF 1% 30 ML VIAL IJ ONE (07:00)
[2019-06-29 07:09] LABS: BASOPHILS # (AUTO) 0.1 /CMM (0.0-0.2); BASOPHILS % (AUTO) 0.3 % (0.0-2.0); EOSINOPHILS % (AUTO) 1.5 % (0.0-6.0); HEMATOCRIT 29 % (39-51); HEMOGLOBIN 9.4 g/dL (13.5-17.5); LYMPHOCYTES # (AUTO) 1.3 /CMM (0.8-4.8); LYMPHOCYTES % (AUTO) 7.6 % (20.0-44.0); MEAN CORPUSCULAR HGB CONC 32 g/dl (31.0-36.0); MEAN CORPUSCULAR VOLUME 90 fL (80-96); MONOCYTES # (AUTO) 1.2 /CMM (0.1-1.30); MONOCYTES % (AUTO) 7.2 % (2.0-12.0); NEUTROPHILS # (AUTO) 13.8 /CMM (1.8-8.9); NEUTROPHILS % (AUTO) 83.4 % (43.0-81.0); PLATELET COUNT (AUTO) 298 /CMM (150-450); RED BLOOD CELL COUNT(AUTO) 3.26 MIL/uL (4.5-6.0); WHITE BLOOD COUNT (AUTO) 16.6 K/uL (4.3-11.0)
--- NOTE | 2019-06-29 07:18 | NUR ---
RN NOTE PATIENT LEFT FOR PROCEDURE FISTULA INSERTION IN STABLE CONDITION, VITAL SIGNS STABLE
[2019-06-29] MEDS ORDERED: FENTANYL PF 100MCG/2ML AMPUL ONE (07:26)
[2019-06-29] MEDS ORDERED: MIDAZOLAM HCL 2 MG/2ML VIAL ONE (07:26)
[2019-06-29] MEDS ORDERED: FAMOTIDINE/PF INJ 20 MG/2 ML VIAL IV ONE (07:27)
[2019-06-29 07:28] LABS: CALCIUM, SERUM 8.6 mg/dL (8.5-10.1); CARBON DIOXIDE 26 mmol/L (21-32); CHLORIDE 101 mmol/L (98-107); CREATININE 3.1 mg/dL (0.6-1.3); GLUCOSE 142 mg/dL (74-106); POTASSIUM 3.9 mmol/L (3.5-5.1); SODIUM SERUM 136 mmol/L (136-145); UREA NITROGEN, BLOOD 28 mg/dL (7-18)
[2019-06-29] MEDS ORDERED: HEPARIN SODIUM, PORCINE 5000 UNITS/1 ML VIAL ONE ×2 (07:28→07:29)
[2019-06-29] MEDS ORDERED: protAMINE SULFATE 10 MG/ML VIAL IV ONE (07:31)
--- NOTE | 2019-06-29 08:02 | NUR ---
RN MS NOTES REPORT GIVEN BY RAFIQ PATIENT CURRENTLY IN SURGERY
[2019-06-29] MEDS ORDERED: THROMBIN (BOVINE) 20,000 UNITS SPRAY KIT TP ONE (08:23)
[2019-06-29] MEDS ORDERED: GELATIN SPONGE,ABSORBABLE 1 EA SPONGE TP ONE (08:23)
[2019-06-29] MEDS ORDERED: BUPIVACAINE 0.5 % PF 150 MG/30 ML VIAL ONE (08:46)
[2019-06-29] MEDS ORDERED: CELLULOSE,OXIDIZED 1 EACH EACH MC ONE (08:51)
[2019-06-29] MEDS: CEFAZOLIN 500 MG in IV NS 0.9% 50 ML IV SCH ×2 (09:00→21:01)
[2019-06-29 10:00] VITALS: BP 123/63
--- NOTE | 2019-06-29 10:00 | NUR ---
PATIENT RETURNED FROM SURGERY FOR LAV SHUNT PLACEMENT. A/O X4 VITALS BP 123/63 HR 52 TEMP 98.1 O2 97% ON ROOM AIR. IV TO RIGHT THUMB DRESSING CHANGED PATENT FLUSHING WELL. RCW HD CATH DRESSING CLEAN AND INTACT. OLD HD CATH TO LCW. THRILL AND BRUIT PRESENT TO LAV ICE APPLIED PER ORDER
[2019-06-29] MEDS: hydrALAZINE HCL 10 MG TABLET PO SCH ×4 (11:11→21:02)
[2019-06-29] MEDS: ZINC SULFATE 220 MG CAPSULE PO SCH (11:12)
[2019-06-29] MEDS: ISOSORBIDE DINITRATE (20MG) 20 MG TABLET PO SCH ×3 (11:12→16:22)
[2019-06-29] MEDS: ASPIRIN EC 81 MG TABLET.DR PO SCH (11:12)
[2019-06-29] MEDS: CARVEDILOL 12.5 MG TABLET PO SCH ×2 (11:13→16:22)
[2019-06-29] MEDS: FUROSEMIDE 20 MG TABLET PO SCH ×2 (11:13→16:22)
[2019-06-29] MEDS: AMLODIPINE BESYLATE 5 MG TABLET PO SCH ×2 (11:13→16:22)
[2019-06-29] MEDS: VIT B CMPLX 3/FA/VIT C/BIOTIN 1 TAB TABLET PO SCH (11:13)
--- NOTE | 2019-06-29 12:49 | NUR ---
HELD DOSE OF ISORDIL . LAST DOSE GIVEN @1112 POST SURGERY
[2019-06-29 16:00] VITALS: BP 120/65
--- NOTE | 2019-06-29 18:46 | NUR ---
RN MS NOTES PATIENT REMAINED STABLE THROUGHOUT SHIFT. NO SIGNIFICANT CHANGES NOTED.NO S/S OF RESPIRATORY DISTRESS TOLERATING ROOM AIR. NO C/O PAIN. USING URINAL BUT ANURIC. S/P LAV SHUNT DRESSING INTACT NO BLEEDING NOTED PATIENT KEPT ICE ON ORDERED. PATIENT REFUSES TO BE REPOSITIONED OR CLEANED UP PER PEOPLESOFT DEVELOPER. RCW PERMA CATH RIGHT THUMB # 20 SL FLUSHING WELL DRESSING CHANGED. APPETITE GOOD . SAFETY PRECAUTIONS IN PLACE BED IN LOW LOCKED POSITION CALL LIGHT WITHIN REACH WILL ENDORSE TO NOC
--- NOTE | 2019-06-29 19:25 | NUR ---
RN/MS NOTES PATIENT RECEIVED IN BED, AWAKE, WATCHING TV. NO S/S OF ACUTE DISTRESS NOTED, RESPIRATION EVEN AND UNLABORED. NO SOB NOTED, PATIENT A/O X4, DENIES ANY PAIN OR DISCOMFORT AT THIS TIME. S/P LAV SHUNT, DRESSING INTACT NO BLEEDING NOTED PATIENT KEPT ICE ON ORDERED. RCW PERMA CATH AND LCW OLD PERMA CATH SITES WITH NO S/S OF INFECTION. BRUITS AND THRILL PRESENT. RIGHT THUMB # 20 GAUGE WITH NO S/S OF INFECTION, INFILTRATION, FLUSHING WELL, SAFETY MAINTAINED, BED AT THE LOWEST LOCKED POSITION, CALL LIGHT WITHIN REACH. WILL CONTINUE TO MONITOR PATIENT PER PLAN OF CARE.
[2019-06-29 20:10] VITALS: BP 108/72
[2019-06-29] MEDS: DONEPEZIL 5 MG TABLET PO SCH (21:01)
[2019-06-29] MEDS: TAMSULOSIN 0.4 MG CAP.SR.24H PO SCH (21:01)
[2019-06-29] MEDS: SENNOSIDES 8.6 MG TABLET PO SCH (21:01)
[2019-06-29] MEDS: ATORVASTATIN 10 MG TABLET PO SCH (21:01)
[2019-06-30] VITALS: BP 124/70
--- NOTE | 2019-06-30 03:52 | NUR ---
MS RN NOTES RECEIVED PTS AND REPORT FROM FOX , PTS IS SLEEPING AND COMFORTABLE IN BED , NO SOB NO DISTRESS NOTED , ALL NEEDS ATTENDED TOO CALL LIGHT WITHIN REACH KEPT PTS CLEAN DRY AND COMFORTABLE.WILL CONTINUE TO MONITOR PTS.
[2019-06-30 04:00] VITALS: BP 123/60
--- NOTE | 2019-06-30 04:02 | NUR ---
REPORT GIVEN TO MURIEL FOR KIMBER. PATIENT REMAINED IN STABLE CONDITION, NO SIGNIFICANT CHANGE IN CONDITION NOTED. NO S/S OF ACUTE DISTRESS NOTED, BREATHING EVEN AND UNLABORED.
[2019-06-30] MEDS: BACLOFEN (10 MG) 10 MG TABLET PO SCH ×3 (05:35→23:01)
--- NOTE | 2019-06-30 05:59 | NUR ---
MS RN NOTES MORNING CARE REFUSED BY PTS . EXPLAIN R/B PTS VERBALIZE UNDERSTANDING, WILL ENDORSE TO RN DAY SHIFT FOR CONTINUITY OF CARE.
[2019-06-30 06:45] LABS: BASOPHILS # (AUTO) 0.1 /CMM (0.0-0.2); BASOPHILS % (AUTO) 0.5 % (0.0-2.0); EOSINOPHILS % (AUTO) 1.2 % (0.0-6.0); HEMATOCRIT 29 % (39-51); HEMOGLOBIN 9.3 g/dL (13.5-17.5); LYMPHOCYTES # (AUTO) 1.3 /CMM (0.8-4.8); LYMPHOCYTES % (AUTO) 8.3 % (20.0-44.0); MEAN CORPUSCULAR HGB CONC 32 g/dl (31.0-36.0); MEAN CORPUSCULAR VOLUME 90 fL (80-96); MONOCYTES # (AUTO) 1.3 /CMM (0.1-1.30); MONOCYTES % (AUTO) 8.1 % (2.0-12.0); NEUTROPHILS # (AUTO) 12.9 /CMM (1.8-8.9); NEUTROPHILS % (AUTO) 81.9 % (43.0-81.0); PLATELET COUNT (AUTO) 281 /CMM (150-450); RED BLOOD CELL COUNT(AUTO) 3.23 MIL/uL (4.5-6.0); WHITE BLOOD COUNT (AUTO) 15.7 K/uL (4.3-11.0)
[2019-06-30 07:08] LABS: CALCIUM, SERUM 8.4 mg/dL (8.5-10.1); CARBON DIOXIDE 25 mmol/L (21-32); CHLORIDE 102 mmol/L (98-107); CREATININE 3.5 mg/dL (0.6-1.3); GLUCOSE 154 mg/dL (74-106); SODIUM SERUM 136 mmol/L (136-145); UREA NITROGEN, BLOOD 35 mg/dL (7-18)
[2019-06-30 08:00] VITALS: BP 138/56
--- NOTE | 2019-06-30 08:15 | NUR ---
MS RN NOTES RECEIVED PT IN BED ALERT ORIENTED TIMES 3. PT IS SITTING COMFORTABLY. LINENS CHANGED. RIGHT ARM SL FLUSHED WELL.NO SIGNS OF SOB OR DISCOMFORT NOTED AT THIS TIME. LEFT AV SHUNT DRESSING INTACT AND NO BLEEDING. ALL SAFETY MEASURES OBSERVED. BED AT LOWEST POSITION AND LOCKED, SIDE RAILS UP X2 AND CALL LIGHT WITHIN REACH. WILL CONTINUE TO MONITOR.
[2019-06-30] MEDS: CARVEDILOL 12.5 MG TABLET PO SCH ×2 (09:00→17:00)
[2019-06-30] MEDS: ZINC SULFATE 220 MG CAPSULE PO SCH (09:23)
[2019-06-30] MEDS: FUROSEMIDE 20 MG TABLET PO SCH ×2 (09:23→17:00)
[2019-06-30] MEDS: CEFAZOLIN 500 MG in IV NS 0.9% 50 ML IV SCH ×2 (09:23→22:59)
[2019-06-30] MEDS: ASPIRIN EC 81 MG TABLET.DR PO SCH (09:23)
[2019-06-30] MEDS: VIT B CMPLX 3/FA/VIT C/BIOTIN 1 TAB TABLET PO SCH (09:24)
[2019-06-30] MEDS: hydrALAZINE HCL 10 MG TABLET PO SCH ×4 (09:25→23:00)
[2019-06-30] MEDS: ISOSORBIDE DINITRATE (20MG) 20 MG TABLET PO SCH ×3 (09:26→17:00)
[2019-06-30] MEDS: AMLODIPINE BESYLATE 5 MG TABLET PO SCH ×2 (09:26→17:00)
--- NOTE | 2019-06-30 13:27 | NUR ---
MS VAZ NOTES PT VITALS WERE BP 109/53 HR 52 O2SAT 98%. HELD THE MEDICATION FOR 1300 FOR HYDRALAZINE (LOW BP), iSOSORBIDE DINITRATE (LOW BP) AND BACLOFEN (PT WAS SLEEPING AND DID NOT WANT TO AROUSE TO TAKE THE MED.WILL CONTINUE TO MONITOR FOR BP. Addendum: 06/30/19 at 1337 by RAKEL MACHUCA RN MS VAZ NOTES BACLOFEN WASTED PROPERLY AND ISOSORBIDE AND HYDRALAZINE RETURNED TO OMNICELL.
[2019-06-30 16:00] VITALS: BP 136/72
--- NOTE | 2019-06-30 17:31 | NUR ---
MS RN NOTES PT REFUSED MEDICATION FOR 1700. PAIN ASSESSMENT PERFORMED AND HE DENIED ANY PAIN.
--- NOTE | 2019-06-30 17:51 | NUR ---
MS RN NOTES PT VOMITED 50 ML OF YELLOW LIQUID X1
[2019-06-30] MEDS: ONDANSETRON HCL/PF 4 MG/2 ML VIAL IVP PRN ×6 (17:56→20:16)
--- NOTE | 2019-06-30 19:22 | NUR ---
RN NOTES: RECEIVED AWAKE ON BED, SEMI FOWLERS POSITION, ON RA, A/O 2-3. ON RA, NO SIGN OF RESPIRATORY DISTRESS NOTED. OLD SITE OF PERMA CATH: ON THE RCW-DRESSING IS INTACT, NO DRAINAGE OR ANY BLEEDING NOTED, NEW PERMA CATH: LCW, DRESSING IS DRY AND INTACT, DUE FOR DIALYSIS TODAY. ORIENTED TO UNIT AND STAFF, BED LOW AND LOCKED, CALL LIGHT WITHIN EASY REACH, FALL,SAFETY AND ASPIRATION PRECAUTION OBSERVED.
[2019-06-30 20:00] VITALS: BP 135/74
--- NOTE | 2019-06-30 20:00 | NUR ---
RN NOTES: PATIENT LYING COMFORTABLY NO NAUSEA AND VOMITING NOTED, KEPT OBSERVED.CALLS AND NEEDS ATTENDED.
--- NOTE | 2019-06-30 20:13 | NUR ---
MS RN NOTES PT IN BED SLEEPING. NO SIGNS OF DISCOMFORT AND SOB NOTED AT THIS TIME. ALL SAFETY MEASURES OBSERVED. ALL NEEDS ATTENDED. BED LOCKED IN LOWEST POSITION SIDE RAILS UPX2. CALL LIGHT WITHIN REACH. WILL ENDORSE PT TO MOUNTAIN OR GLACIER GUIDE NURSE.
--- NOTE | 2019-06-30 21:25 | NUR ---
RN NOTES: DIALYSIS ONGOING RIGHT NOW , STARTED AT AROUND 1925, UNABLE TO GIVE IV/ATB/ANCEF DUE AT 2100. WILL GIVE AFTER DIALYSIS FINISH. Addendum: 06/30/19 at 2151 by CLEMENTINA LANDRY RN ADDED NOTED: ORAL MEDICATION AND ANTIHYPERTENSIVE MEDICATION NOT YET GIVEN, DIALYSIS STILL ONGOING.
[2019-06-30] MEDS: DONEPEZIL 5 MG TABLET PO SCH (23:01)
[2019-06-30] MEDS: TAMSULOSIN 0.4 MG CAP.SR.24H PO SCH (23:01)
[2019-06-30] MEDS: ATORVASTATIN 10 MG TABLET PO SCH (23:01)
[2019-06-30] MEDS: SENNOSIDES 8.6 MG TABLET PO SCH (23:01)
--- NOTE | 2019-06-30 23:26 | NUR ---
RN NOTES: -AT AROUND 2244, DIALYSIS DONE BY RNROGE ,OUTPUT IS 1.1 LITER -AT 2250 BP-134/56 WI-73, ALL ORAL MEDICATION GIVEN WITH APPLESAUCE.
--- NOTE | 2019-06-30 23:55 | NUR ---
RN NOTES: IV CANNULA WAS LEAKING, REMOVE, EXPLAINED TO PATIENT WE NEED TO REINSERT A NEW LINE AND CONTINUE THE IV/ATB MEDICATION, HE REFUSED, NOTIFIED CN AND TRIED TO CONVINCE HIM AGAIN, STILL HE REFUSE. WILL TRY AGAIN LATER.
[2019-07-01] VITALS: BP 134/56
--- NOTE | 2019-07-01 01:13 | NUR ---
RN NOTES: AT 0015 ABLE TO CONVINCE HIM TO REINSERT IV CANNULA, HE IS HARD STICK MURIEL/RN ABLE TO INSERT IN THE RH G#24, PATENT IV RESUME.
[2019-07-01 04:00] VITALS: BP 148/61
[2019-07-01] MEDS: BACLOFEN (10 MG) 10 MG TABLET PO SCH ×3 (05:09→21:11)
--- NOTE | 2019-07-01 07:04 | NUR ---
MS RN OPENING RECEIVED PATIENT SLEEPING, AROUSABLE TO NAME AND TOUCH. A/OX1-2. ON ROOM AIR, NO ACUTE DISTRESS OR SOB NOTED. R HAND 24G IV SITE C/D/I, PATENT, NO S/S INFILTRATION. R UPPER CHEST WALL PERMA CATH C/D, NO S/S BLEEDING. BED LOCKED, LOW, BED ALARM ON, SIDE RAILS UPX2, CALL LIGHT WITHIN REACH, WILL CONT TO MONITOR Addendum: 07/01/19 at 1039 by HELLEN BEAN RN AMEND: PATIENT UNAROUSABLE TO NAME AND TOUCH. NOT RESPONDING TO COMMANDS
--- NOTE | 2019-07-01 07:06 | NUR ---
RN NOTES: ASLEEP MOST OF THE TIME, MORNING CARE DONE, CLEAN AND CHANGE, ABLE TO TAKE MEDICATION ORALLY, FALL,SAFETY AND ASPIRATION PRECAUTION OBSERVED, BED LOW AND LOCKED, CALL LIGHT WITHIN EASY REACH.
[2019-07-01 08:00] VITALS: BP 151/65
[2019-07-01] MEDS: AMLODIPINE BESYLATE 5 MG TABLET PO SCH ×3 (08:35→17:00)
[2019-07-01] MEDS: ZINC SULFATE 220 MG CAPSULE PO SCH (08:35)
[2019-07-01] MEDS: VIT B CMPLX 3/FA/VIT C/BIOTIN 1 TAB TABLET PO SCH (08:35)
[2019-07-01] MEDS: ASPIRIN EC 81 MG TABLET.DR PO SCH (08:35)
[2019-07-01] MEDS: CARVEDILOL 12.5 MG TABLET PO SCH ×3 (08:36→17:00)
[2019-07-01] MEDS: FUROSEMIDE 20 MG TABLET PO SCH ×3 (08:36→17:00)
[2019-07-01] MEDS: ISOSORBIDE DINITRATE (20MG) 20 MG TABLET PO SCH ×4 (08:36→17:00)
[2019-07-01] MEDS: hydrALAZINE HCL 10 MG TABLET PO SCH ×5 (08:36→21:10)
[2019-07-01] MEDS: CEFAZOLIN 500 MG in IV NS 0.9% 50 ML IV SCH ×2 (08:37→21:09)
[2019-07-01 09:48] LABS: BASOPHILS # (AUTO) 0.1 /CMM (0.0-0.2); BASOPHILS % (AUTO) 0.5 % (0.0-2.0); CALCIUM, SERUM 8.7 mg/dL (8.5-10.1); CARBON DIOXIDE 28 mmol/L (21-32); CHLORIDE 105 mmol/L (98-107); CREATININE 2.4 mg/dL (0.6-1.3); EOSINOPHILS % (AUTO) 0.7 % (0.0-6.0); GLUCOSE 155 mg/dL (74-106); HEMATOCRIT 31 % (39-51); HEMOGLOBIN 9.7 g/dL (13.5-17.5); LYMPHOCYTES % (AUTO) 6.9 % (20.0-44.0); MEAN CORPUSCULAR HGB CONC 32 g/dl (31.0-36.0); MEAN CORPUSCULAR VOLUME 91 fL (80-96); MONOCYTES % (AUTO) 7.3 % (2.0-12.0); NEUTROPHILS # (AUTO) 12.2 /CMM (1.8-8.9); NEUTROPHILS % (AUTO) 84.6 % (43.0-81.0); PLATELET COUNT (AUTO) 308 /CMM (150-450); POTASSIUM 3.6 mmol/L (3.5-5.1); RED BLOOD CELL COUNT(AUTO) 3.34 MIL/uL (4.5-6.0); SODIUM SERUM 141 mmol/L (136-145); UREA NITROGEN, BLOOD 16 mg/dL (7-18); WHITE BLOOD COUNT (AUTO) 14.4 K/uL (4.3-11.0)
[2019-07-01 10:00] VITALS: BP 151/65
--- NOTE | 2019-07-01 10:30 | NUR ---
PATIENT SEEN BY IDANIA PRECIADO NP, ORDERED HEAD CT FOR CHANGE IN LOC
--- NOTE | 2019-07-01 11:40 | NUR ---
PATIENT TAKEN TO CT
--- NOTE | 2019-07-01 15:03 | NUR ---
PATIENT REMAINS LETHARGIC, UNABLE TO FOLLOW COMMAND, UNAROUSABLE EXCEPT TO DEEP PAIN. ABG COMPLETED, AMMONIA LEVEL DRAWN, CT HEAD DONE, BLOOD SUGAR 146, VITALS STABLE.
--- NOTE | 2019-07-01 15:08 | NUR ---
IDANIA PRECIADO IT PORTFOLIO MANAGER AWARE OF PATIENT CONDITION, PATIENT DID NOT EAT BREAKFAST OR LUNCH, ORDERED CXR, VERBALIZED HE WILL COMMUNICATE WITH NEPHROLOGISTS ABOUT IVF
[2019-07-01 16:00] VITALS: BP_SYST 120; BP_SYST 162; BP_DIAS 52; BP_DIAS 67
--- NOTE | 2019-07-01 19:05 | NUR ---
MS RN CLOSING CHANGE IN MENTAL STATUS NOTED THIS AM. PATIENT DID NOT EAT, DRINK, OR HAVE ANY MEDICATIONS D/T LETHARGY. UNABLE TO AROUSE TO NAME OR TOUCH THROUGHOUT SHIFT. PCP AWARE. NO SOB OR ACUTE DISTRESS AT ANYTIME. EVEN, UNLABORED BREATHING. VSS. PATIENT WAS SLEEPING MOST OF SHIFT. WILL ENDORSE TO NOC
[2019-07-01 20:00] VITALS: BP 167/67
--- NOTE | 2019-07-01 20:00 | NUR ---
pt opens his eyes to painful stimuli and moans but doesn't say anything verbally ls cl bilat hob elevated bs pos in all four quad abd soft and flat did note pt is wearing a diaper and coccyx area has small abrasions on it covered with a mediplex overall appearances fair ble's neg for edema is wearing scd'd bilat pt is able to moved all four extrem without any problem does have a rt hand #24 g hl intact and has a rt upper chest permacath intact does have a cindy av shunt with positive bruit and thrill vss comfort and safety maintained
[2019-07-01] MEDS: SENNOSIDES 8.6 MG TABLET PO SCH (21:23)
[2019-07-01] MEDS: DONEPEZIL 5 MG TABLET PO SCH (21:23)
[2019-07-01] MEDS: ATORVASTATIN 10 MG TABLET PO SCH (21:23)
[2019-07-01] MEDS: TAMSULOSIN 0.4 MG CAP.SR.24H PO SCH (21:23)
[2019-07-02] VITALS: BP 148/68
[2019-07-02 04:00] VITALS: BP 137/70
[2019-07-02] MEDS: BACLOFEN (10 MG) 10 MG TABLET PO SCH ×3 (05:08→21:00)
[2019-07-02 06:15] LABS: BASOPHILS # (AUTO) 0.1 /CMM (0.0-0.2); BASOPHILS % (AUTO) 0.5 % (0.0-2.0); EOSINOPHILS % (AUTO) 1.3 % (0.0-6.0); HEMATOCRIT 33 % (39-51); HEMOGLOBIN 10.4 g/dL (13.5-17.5); LYMPHOCYTES # (AUTO) 1.4 /CMM (0.8-4.8); LYMPHOCYTES % (AUTO) 9.3 % (20.0-44.0); MEAN CORPUSCULAR HGB CONC 32 g/dl (31.0-36.0); MEAN CORPUSCULAR VOLUME 91 fL (80-96); MONOCYTES # (AUTO) 1.2 /CMM (0.1-1.30); MONOCYTES % (AUTO) 8.5 % (2.0-12.0); NEUTROPHILS # (AUTO) 11.8 /CMM (1.8-8.9); NEUTROPHILS % (AUTO) 80.4 % (43.0-81.0); PLATELET COUNT (AUTO) 364 /CMM (150-450); RED BLOOD CELL COUNT(AUTO) 3.63 MIL/uL (4.5-6.0); WHITE BLOOD COUNT (AUTO) 14.6 K/uL (4.3-11.0)
[2019-07-02 06:25] LABS: CALCIUM, SERUM 8.7 mg/dL (8.5-10.1); CARBON DIOXIDE 27 mmol/L (21-32); CHLORIDE 105 mmol/L (98-107); CREATININE 2.9 mg/dL (0.6-1.3); GLUCOSE 117 mg/dL (74-106); SODIUM SERUM 142 mmol/L (136-145); UREA NITROGEN, BLOOD 23 mg/dL (7-18)
--- NOTE | 2019-07-02 07:31 | NUR ---
RN OPENING NOTES RECEIVED PATIENT SLEEPING IN BED, EASILY AROUSED. HE IS AOX2, VERBAL, BEDREST. HE IS ON RA, TOLERATING WELL, SHOWS NO S/SX OF RESP DISTRESS OR SOB. HE IS S/P L AV SHUNT, POSITIVE FOR BRUIT AND THRILL. HE IS ON A RENAL STANDARD DIET. NO EDEMA. SAFETY MEASURES HAVE BEEN IMPLEMENTED, CALL LIGHT IS WITHIN REACH, BED IS IN LOWEST AND LOCKED POSITION, SIDE RAILS UP X2, WILL CONTINUE TO MONITOR FOR ANY CHANGES.
[2019-07-02 08:00] VITALS: BP 126/70
[2019-07-02] MEDS: AMLODIPINE BESYLATE 5 MG TABLET PO SCH ×2 (08:54→17:00)
[2019-07-02] MEDS: CEFAZOLIN 500 MG in IV NS 0.9% 50 ML IV SCH ×2 (08:55→21:51)
[2019-07-02] MEDS: hydrALAZINE HCL 10 MG TABLET PO SCH ×4 (09:00→21:00)
[2019-07-02] MEDS: ASPIRIN EC 81 MG TABLET.DR PO SCH (09:00)
[2019-07-02] MEDS: FUROSEMIDE 20 MG TABLET PO SCH ×2 (09:00→17:00)
[2019-07-02] MEDS: CARVEDILOL 12.5 MG TABLET PO SCH ×2 (09:00→17:00)
[2019-07-02] MEDS: VIT B CMPLX 3/FA/VIT C/BIOTIN 1 TAB TABLET PO SCH (09:00)
[2019-07-02] MEDS: ZINC SULFATE 220 MG CAPSULE PO SCH (09:00)
[2019-07-02] MEDS: ISOSORBIDE DINITRATE (20MG) 20 MG TABLET PO SCH ×3 (09:00→17:00)
--- NOTE | 2019-07-02 09:09 | NUR ---
0900 MEDS HELD. PATIENT UNABLE TO STAY AWAKE, RISK FOR ASPIRATION. WILL NOTIFY HOSPITALIST
--- NOTE | 2019-07-02 10:48 | NUR ---
PT HAS BEEN MOVED TO RM 112-1
[2019-07-02 12:42] LABS: ABG BASE EXCESS 2.4 mmol/L; ABG OXYGEN SATURATION 94.7 % (92.0-98.5); ABG PCO2 44.3 mmHg (35.0-45.0); ABG PO2 73.2 mmHg (75.0-100.0); AaDO2 23.5 mmHg; COHb 0.3 % (0.5-1.5); MetHb 0.4 % (0.0-1.5); SITE, ABG Right Radial
[2019-07-02] MEDS ORDERED: IV D5/0.45 NACL 1,000 ML IV PRN (13:30)
--- NOTE | 2019-07-02 13:41 | NUR ---
1300 MEDS HELD BECAUSE PT IS BEING DIALYZED
--- NOTE | 2019-07-02 13:42 | NUR ---
TEXTED DR. MOORE FOR MRI APPROVAL.
--- NOTE | 2019-07-02 13:44 | NUR ---
MRI ON HOLD FOR NOW PER DR. MOORE, HE WILL LET US KNOW IF IT'S A GO OR NOT.
[2019-07-02 16:00] VITALS: BP_SYST 151; BP_SYST 152; BP_DIAS 71
--- NOTE | 2019-07-02 16:27 | NUR ---
PT HAS FINISHED HD, 1L WAS REMOVED. HE IS STILL LETHARGIC, VITAL SIGNS ARE STABLE. CONDOM CATH IS INTACT (FOR SPECIMEN COLLECTION). WILL CONTINUE TO MONITOR FOR ANY CHANGES
--- NOTE | 2019-07-02 17:30 | NUR ---
RN NOTES PT IS STILL LETHARGIC, UNABLE TO OPEN HIS EYES OR COOPERATE. 1700 MEDS HAVE BEEN HELD BECAUSE PT IS NOT ALERT ENOUGH TO SWALLOW. WILL CONTINUE TO MONITOR
--- NOTE | 2019-07-02 19:05 | NUR ---
RN CLOSING NOTES PATIENT IS RESTING COMFORTABLY AT THIS TIME. HE HAS BEEN LETHARGIC THROUGHOUT THE DAY. UNABLE TO ADMINISTER MEDICATIONS. UNABLE TO OBTAIN URINE SPECIMEN FOR DRUG SCREEN BECAUSE PT IS CURRENTLY ANURIC, CONDOM CATHETER IS IN PLACE. PT WAS DIALYZED TODAY, 1 L REMOVED. NO ACUTE CHANGES OCCURRED THROUGHOUT THE SHIFT, VITAL SIGNS STABLE. SAFETY MEASURES HAVE BEEN IMPLEMENTED, CALL LIGHT IS WITHIN REACH, BED IS IN LOWEST AND LOCKED POSITION, SIDE RAILS UP X2, WILL ENDORSE TO NIGHTSHIFT RN FOR CONTINUITY OF CARE.
[2019-07-02 20:00] VITALS: BP 149/71
--- NOTE | 2019-07-02 20:00 | NUR ---
RN NOTE RECEIVED PATIENT IN BED, LETHARGIC, NON-VERBAL, NO RESPIRATORY DISTRESS NOTED, ORDER OF MRI OF THE BRAIN WITHOUT CONTRAST NOTED SCHEDULED AT 13.08PM, CALLED GIANCARLO, PER GIANCARLO "MRI ON HOLD FOR NOW PER DR. MOORE, HE WILL LET US KNOW WHEN TO PROCEED", NOTIFIED CHARGE NURSE AND ELECTRONIC CONTROLS REPAIRER SUPERVISOR EMILY
--- NOTE | 2019-07-02 21:00 | NUR ---
RN NOTE NOTIFIED DR VITAL THAT PATIENT HAS PO MEDS AND PATIENT HAS ALTERED MENTAL STATUS, PER DR VITAL HOLD PO MEDS, NEW ORDER OF HYDRALAZINE 10 MG IVP Q 6 HOURS PRN FOR SYSTOLIC ABOVE 160 GIVEN TO CONTROL BLOOD PRESSURE, NPO, ORDERS TRANSCRIBED AND READ BACK Addendum: 07/02/19 at 2214 by JAZZ MARTE RN RECHECKED PATIENTS ORDERS, PATIENT HAS ALREADY ORDER FOR HYDRALAZINE 10 MG IVP, IS AWARE
[2019-07-02] MEDS: SENNOSIDES 8.6 MG TABLET PO SCH (22:00)
[2019-07-02] MEDS: DONEPEZIL 5 MG TABLET PO SCH (22:00)
[2019-07-02] MEDS: TAMSULOSIN 0.4 MG CAP.SR.24H PO SCH (22:00)
[2019-07-02] MEDS: ATORVASTATIN 10 MG TABLET PO SCH (22:00)
[2019-07-03 04:00] VITALS: BP_SYST 158; BP_SYST 161; BP_DIAS 86; BP_DIAS 87
--- NOTE | 2019-07-03 04:00 | NUR ---
RN NOTE NOTIFIED DR VITAL THAT PATIENT IS MORE AWAKE NOW, OPEN EYES, ORIENTED TO NAME AND PLACE, HOWEVER, NOT ABLE TO MOVE BILATERAL LOWER EXTREMITY, PAIN IN RIGHT HAND, AND WEAKNESS NOTED, NOTIFIED DR VITAL THAT CT OF THE HEAD WAS DONE ON 07/01 DUE TO CHANGE OF MENTAL STATUS AND MRI OF THE BRAIN PENDING, PER DR VITAL NO NEW ORDERS, CONTINUE TO MONITOR PATIENT, CHARGE NURSE RUBEN IS AWARE
[2019-07-03] MEDS: BACLOFEN (10 MG) 10 MG TABLET PO SCH ×3 (05:00→21:54)
--- NOTE | 2019-07-03 05:29 | NUR ---
RN NOTE IV RIGHT HAND 24 GAUGE INFILTRATED, MULTIPLE ATTEMPTS, HARD STICK, JOSELITO MARINA MANAGER NOT ABLE TO INSERT, NOTIFIED EMILY MECHANIC'S ASSISTANT, PER EMILY MECHANIC'S ASSISTANT MIDLINE NURSE WILL COME DURING AM SHIFT, MD IS AWARE
--- NOTE | 2019-07-03 07:23 | NUR ---
RN NOTE PATIENT IS AWAKE, ORIENTED TO NAME AND PLACE NOW, NO DISTRESS NOTED, AWAITING MRI OF THE BRAIN WITHOUT CONTRAST, ENDORSED TO AM SHIFT TO CONTINUE CARE
--- NOTE | 2019-07-03 07:30 | NUR ---
RN NOTES PATIENT NOTED AWAKE ORIENTED TO SELF, ABLE TO MAKE NEEDS KNOWN. RESPIRATIONS EVEN AND UNLABORED DENIES ANY PAIN OR DISCOMFORT KEPT. RN TO OBTAIN NEW IV ACCESS CURRENT ONE LEAKING. KEPT CLEAN DRY AND COMFORTABLE, CALL LIGHT WITHIN EASY REACH. SAFETY MEASURES IN PLACE
[2019-07-03 08:00] VITALS: BP 140/75
[2019-07-03] MEDS: ISOSORBIDE DINITRATE (20MG) 20 MG TABLET PO SCH ×3 (09:00→17:50)
[2019-07-03] MEDS: FUROSEMIDE 20 MG TABLET PO SCH ×2 (09:00→17:50)
[2019-07-03] MEDS: ASPIRIN EC 81 MG TABLET.DR PO SCH (09:00)
[2019-07-03] MEDS: CARVEDILOL 12.5 MG TABLET PO SCH ×2 (09:00→17:00)
[2019-07-03] MEDS: ZINC SULFATE 220 MG CAPSULE PO SCH (09:00)
[2019-07-03] MEDS: AMLODIPINE BESYLATE 5 MG TABLET PO SCH ×2 (09:00→17:49)
[2019-07-03] MEDS: hydrALAZINE HCL 10 MG TABLET PO SCH ×4 (09:00→21:55)
[2019-07-03] MEDS: VIT B CMPLX 3/FA/VIT C/BIOTIN 1 TAB TABLET PO SCH (09:00)
--- NOTE | 2019-07-03 09:00 | NUR ---
RN NOTES PT NPO AM MEDS NOT GIVEN TO HAVE SWALLOW EVAL
--- NOTE | 2019-07-03 09:31 | NUR ---
WOUND CARE CONSULT: PT PRESENTS WITH INCONTINENCE ASSOCIATED SKIN DAMAGE AND RASH TO GROIN FOLDS, PERINEUM AND SACRAL/BUTTOCKS AREA. RECOMMENDATIONS MADE FOR SKIN PROTECTION AND CARE. DISCUSSED WITH NURSING STAFF. PT NOTED TO BE INCONTINENT OF STOOL AND URINE. PT IS THIN AND BONY WITH POOR INTAKE PER NURSING STAFF. RECOMMEND DIETARY FOLLOW UP. RECOMMEND LOW AIRLOSS BED (ISOFLEX TO BE PLACED WHEN AVAILABLE). PT IS UNCOOPERATIVE AT TIMES. WILL SEE PRN. IN AGREEMENT WITH PLAN OF CARE.
[2019-07-03] MEDS: CEFAZOLIN 500 MG in IV NS 0.9% 50 ML IV SCH ×2 (09:56→21:56)
[2019-07-03 12:00] VITALS: BP 138/64
--- NOTE | 2019-07-03 13:00 | NUR ---
RN NOTES PT NOT WANTING 1300 MEDS EXPLAINED X3 , BENEFITS AND RISKS OF REFUSING, WILL CONTINUE TO MONITOR
[2019-07-03 16:00] VITALS: BP 136/72
--- NOTE | 2019-07-03 17:00 | NUR ---
RN NOTES BP MEDS X2 HELD PT REFUSED, NOT WANTING "TOO MANY MEDICATIONS" RISKS AND BENEFITS EXPLAINED WILL CONTINUE TO MONITOR
[2019-07-03 17:20] LABS: CALCIUM, SERUM 8.5 mg/dL (8.5-10.1); CARBON DIOXIDE 25 mmol/L (21-32); CHLORIDE 101 mmol/L (98-107); CREATININE 2.6 mg/dL (0.6-1.3); GLUCOSE 191 mg/dL (74-106); POTASSIUM 3.7 mmol/L (3.5-5.1); SODIUM SERUM 136 mmol/L (136-145); UREA NITROGEN, BLOOD 24 mg/dL (7-18)
[2019-07-03] MEDS: CLOTRIMAZOLE 1% 15 GM TUBE TP SCH (17:51)
--- NOTE | 2019-07-03 19:20 | NUR ---
RN NOTES PATIENT NOTED AWAKE ORIENTED TO SELF, ABLE TO MAKE NEEDS KNOWN. RESPIRATIONS EVEN AND UNLABORED DENIES ANY PAIN OR DISCOMFORT KEPT. IV ACCESS PATENT AND INTACT TO RIGHT WRIST. KEPT CLEAN DRY AND COMFORTABLE, CALL LIGHT WITHIN EASY REACH. SAFETY MEASURES IN PLACE, ENDORSED TO NEXT SHIFT FOR CONTINUITY OF CARE
[2019-07-03 20:00] VITALS: BP 118/67
[2019-07-03] MEDS: TAMSULOSIN 0.4 MG CAP.SR.24H PO SCH (21:54)
[2019-07-03] MEDS: ATORVASTATIN 40 MG TABLET PO SCH (21:54)
[2019-07-03] MEDS: SENNOSIDES 8.6 MG TABLET PO SCH (21:55)
[2019-07-03] MEDS: DONEPEZIL 5 MG TABLET PO SCH (21:55)
[2019-07-03 22:29] LABS: BASOPHILS # (AUTO) 0.1 /CMM (0.0-0.2); BASOPHILS % (AUTO) 0.5 % (0.0-2.0); EOSINOPHILS % (AUTO) 0.6 % (0.0-6.0); HEMATOCRIT 32 % (39-51); LYMPHOCYTES # (AUTO) 1.4 /CMM (0.8-4.8); LYMPHOCYTES % (AUTO) 7.9 % (20.0-44.0); MEAN CORPUSCULAR HGB CONC 32 g/dl (31.0-36.0); MEAN CORPUSCULAR VOLUME 90 fL (80-96); MONOCYTES # (AUTO) 1.6 /CMM (0.1-1.30); MONOCYTES % (AUTO) 9.1 % (2.0-12.0); NEUTROPHILS # (AUTO) 14.7 /CMM (1.8-8.9); NEUTROPHILS % (AUTO) 81.9 % (43.0-81.0); PLATELET COUNT (AUTO) 337 /CMM (150-450)
[2019-07-04] VITALS: BP 133/67
[2019-07-04] MEDS: HYDROCODONE/APAP 5/325MG 1 EACH TABLET PO PRN (03:18)
[2019-07-04 04:00] VITALS: BP 118/53
[2019-07-04] MEDS: BACLOFEN (10 MG) 10 MG TABLET PO SCH ×3 (06:24→21:49)
[2019-07-04] MEDS: ONDANSETRON HCL/PF 4 MG/2 ML VIAL IVP PRN ×9 (06:47→22:07)
[2019-07-04 07:11] LABS: CALCIUM, SERUM 8.2 mg/dL (8.5-10.1); CARBON DIOXIDE 28 mmol/L (21-32); CHLORIDE 101 mmol/L (98-107); CREATININE 3.3 mg/dL (0.6-1.3); GLUCOSE 190 mg/dL (74-106); POTASSIUM 3.8 mmol/L (3.5-5.1); SODIUM SERUM 138 mmol/L (136-145); UREA NITROGEN, BLOOD 32 mg/dL (7-18)
[2019-07-04 07:14] LABS: BASOPHILS # (AUTO) 0.1 /CMM (0.0-0.2); BASOPHILS % (AUTO) 0.9 % (0.0-2.0); EOSINOPHILS % (AUTO) 0.8 % (0.0-6.0); HEMATOCRIT 43 % (39-51); HEMOGLOBIN 12.8 g/dL (13.5-17.5); LYMPHOCYTES # (AUTO) 1.2 /CMM (0.8-4.8); LYMPHOCYTES % (AUTO) 10.1 % (20.0-44.0); MEAN CORPUSCULAR HGB CONC 30 g/dl (31.0-36.0); MEAN CORPUSCULAR VOLUME 91 fL (80-96); MONOCYTES # (AUTO) 0.9 /CMM (0.1-1.30); MONOCYTES % (AUTO) 7.6 % (2.0-12.0); NEUTROPHILS # (AUTO) 9.7 /CMM (1.8-8.9); NEUTROPHILS % (AUTO) 80.6 % (43.0-81.0); PLATELET COUNT (AUTO) 159 /CMM (150-450); RED BLOOD CELL COUNT(AUTO) 4.67 MIL/uL (4.5-6.0); WHITE BLOOD COUNT (AUTO) 12.1 K/uL (4.3-11.0)
[2019-07-04 08:00] VITALS: BP 132/61
--- NOTE | 2019-07-04 08:30 | NUR ---
MS RN NOTES OPENING RECEIVED PT SITTING IN BED COMFORTABLY. A/O X3 DENIES ANY PAIN AND DISCOMFORT AT THIS TIME. RESPIRATIONS EVEN AND UNLABORED. IV ACCESS PATENT AND INTACT TO RIGHT WRIST, FLUSHED WELL WITH NS. ALL SAFETY MEASURES OBSERVED, BED AT THE LOWEST POSITION LOCKED, CALL LIGHT WITHIN EASY REACH. WILL CONTINUE TO MONITOR.
[2019-07-04] MEDS: AMLODIPINE BESYLATE 5 MG TABLET PO SCH ×2 (09:00→17:00)
[2019-07-04] MEDS: CLOTRIMAZOLE 1% 15 GM TUBE TP SCH ×2 (09:00→17:00)
[2019-07-04] MEDS: hydrALAZINE HCL 10 MG TABLET PO SCH ×4 (09:00→21:49)
[2019-07-04] MEDS: ZINC SULFATE 220 MG CAPSULE PO SCH (09:00)
[2019-07-04] MEDS: VIT B CMPLX 3/FA/VIT C/BIOTIN 1 TAB TABLET PO SCH (09:00)
[2019-07-04] MEDS: ASPIRIN EC 81 MG TABLET.DR PO SCH (09:00)
[2019-07-04] MEDS: CARVEDILOL 12.5 MG TABLET PO SCH ×2 (09:00→17:00)
[2019-07-04] MEDS: ISOSORBIDE DINITRATE (20MG) 20 MG TABLET PO SCH ×3 (09:00→17:00)
[2019-07-04] MEDS: CLOPIDOGREL BISULFATE 75 MG TABLET PO SCH (09:00)
[2019-07-04] MEDS: FUROSEMIDE 20 MG TABLET PO SCH ×2 (09:00→17:00)
--- NOTE | 2019-07-04 10:00 | NUR ---
MS RN NOTES EXPLAINED THE INDICATION AND S/S OF MEDICATION TO THE PATIENT. HE REFUSES TAKING MEDICATIONS. ICE CHIPS AND CRACKERS PROVIDED IN CASE OF FEELING NAUSEATED.
[2019-07-04] MEDS: CEFAZOLIN 500 MG in IV NS 0.9% 50 ML IV SCH ×2 (10:43→21:48)
[2019-07-04 12:00] VITALS: BP 141/68
[2019-07-04 16:00] VITALS: BP 100/59
[2019-07-04 20:00] VITALS: BP 135/57
--- NOTE | 2019-07-04 20:57 | NUR ---
MS RN NOTES CLOSING PATIENT SITTING IN BED COMFORTABLY. ALERT ORIENTED X3. NO PAIN AND DISCOMFORT AT THIS TIME. IV ACCESS PATENT AND INTACT, FLUSHED WELL WITH NS. ALL NEEDS ATTENDED . KEPT CLEAN DRY AND COMFORTABLE, CALL LIGHT WITHIN REACH. SAFETY MEASURES IN PLACE, BED AT LOWEST POSITION LOCKED, SIDE RAILS UPX2. ENDORSED TO NEXT SHIFT FOR CONTINUITY OF CARE
[2019-07-04] MEDS: SENNOSIDES 8.6 MG TABLET PO SCH (21:50)
[2019-07-04] MEDS: DONEPEZIL 5 MG TABLET PO SCH (21:50)
[2019-07-04] MEDS: ATORVASTATIN 40 MG TABLET PO SCH (21:50)
[2019-07-04] MEDS: TAMSULOSIN 0.4 MG CAP.SR.24H PO SCH (21:50)
[2019-07-05 04:00] VITALS: BP 147/60
[2019-07-05] MEDS: BACLOFEN (10 MG) 10 MG TABLET PO SCH ×2 (05:00→13:00)
--- NOTE | 2019-07-05 07:10 | NUR ---
MS RN OPENING NOTES RECEIVED PT SITTING IN BED COMFORTABLY. A/O X3. NO SIGN OF RESPIRATORY DISTRESS OR SOB NOTED AT THIS TIME. RESPIRATIONS EVEN AND UNLABORED. DENIES ANY PAIN AND DISCOMFORT. IV ACCESS PATENT AND INTACT TO RIGHT WRIST 22 GAUGE SL, FLUSHED WELL WITH NS. R UPPER ARM MIDLINE PATENT, INTACT, AND FLUSHED WELL. ALL SAFETY MEASURES OBSERVED, BED AT THE LOWEST POSITION LOCKED, CALL LIGHT WITHIN REACH. SIDE RAILS UPX3. WILL CONTINUE TO MONITOR.
[2019-07-05 08:00] VITALS: BP 133/93
[2019-07-05] MEDS: VIT B CMPLX 3/FA/VIT C/BIOTIN 1 TAB TABLET PO SCH (09:12)
[2019-07-05] MEDS: CARVEDILOL 12.5 MG TABLET PO SCH (09:12)
[2019-07-05] MEDS: ISOSORBIDE DINITRATE (20MG) 20 MG TABLET PO SCH ×2 (09:12→13:00)
[2019-07-05] MEDS: ZINC SULFATE 220 MG CAPSULE PO SCH (09:13)
[2019-07-05] MEDS: hydrALAZINE HCL 10 MG TABLET PO SCH ×2 (09:13→13:00)
[2019-07-05] MEDS: CLOPIDOGREL BISULFATE 75 MG TABLET PO SCH (09:13)
[2019-07-05] MEDS: FUROSEMIDE 20 MG TABLET PO SCH (09:14)
[2019-07-05] MEDS: AMLODIPINE BESYLATE 5 MG TABLET PO SCH (09:14)
[2019-07-05] MEDS: ASPIRIN EC 81 MG TABLET.DR PO SCH (09:14)
[2019-07-05] MEDS: CEFAZOLIN 500 MG in IV NS 0.9% 50 ML IV SCH (09:15)
[2019-07-05] MEDS: CLOTRIMAZOLE 1% 15 GM TUBE TP SCH (09:16)
--- NOTE | 2019-07-05 12:30 | NUR ---
MS RN NOTE PT VOMITED ONCE AND COMPLAINED OF FEELING NAUSEOUS. ZOFRAN GIVEN.
[2019-07-05] MEDS: ONDANSETRON HCL/PF 4 MG/2 ML VIAL IVP PRN (12:56)
[2019-07-05] MEDS ORDERED: PANTOPRAZOLE 40 MG TABLET.DR PO SCH (13:00)
--- NOTE | 2019-07-05 13:00 | NUR ---
MS RN NOTE PT REFUSED MEDICATION AT 13:00 B/C OF FEELING NAUSEOUS. VS WNL. WILL CONT' TO MONITOR CLOSELY.
--- NOTE | 2019-07-05 13:00 | NUR ---
PATIENT C/O N/V X3,VERBALIZED "I HAVE ACID REFLUX",ALSO CLAIM HE IS TAKING INSULIN INTERMEDIATE,BS 234,DR. CHAVARRIA NOTIFIED AND WILL HOLD DISCHARGE PENDING IPROVEMENT POST MEDS GIVEN TODAY,CLINICAL HAEMATOLOGIST MADE AWARE.WILL REASSESS IN THE AFTERNOON IF OK TO DISCHARGE TO SNF PER MD.WILL GIVE INSULIN COVERAGE AND CHANGE DIET TO DIABETIC.
[2019-07-05 13:13] VITALS: BP 135/73
--- NOTE | 2019-07-05 13:15 | NUR ---
RN MS NOTE PT VOMITTED AGAIN. VS WNL. BP 135/73, HR 77. BS 234. DR CHAVARRIA MADE AWARE. PROTONIX AND INSULIN ORDERED. ORDER CARRIED OUT.
--- NOTE | 2019-07-05 13:17 | NUR ---
RN MS NOTE DR. CHAVARRIA CANCELED THE DISCHARGE ORDER TILL PT GETS STABLE.
[2019-07-05] MEDS ORDERED: *INSULIN REGULAR(HUMULIN R)HUM 100 UNIT/ML VIAL SQ PRN (13:30)
[2019-07-05] MEDS ORDERED: BLOOD SUGAR DIAGNOSTIC 1 EACH STRIP VI SCH (13:30)
[2019-07-05] MEDS ORDERED: INSULIN REGULAR, HUMAN 100 UNIT/ML 3 ML VIAL SQ PRN (13:30)
[2019-07-05] MEDS ORDERED: DEXTROSE 50%-WATER 50 ML DISP.SYRIN IV PRN (13:30)
[2019-07-05 16:00] VITALS: BP 100/54
--- NOTE | 2019-07-05 17:14 | NUR ---
MS RN NOTE PT DISCHARGED TO [facility]. VS STABLE UPON DISCHARGE. BP 128/63, HR 76, O2 SATURATION 98% ROOM AIR.
== END 2019-07-05 17:46 | DRG 264 ==
LOC: ER 10:58 → TELE1 12:53 → MEDSG1 06-23 11:01
PROVIDERS: ADMIT Internal Medicine; ATTEND Internal Medicine
PROC: 5A1D70Z Performance of Urinary Filtration, Intermittent, Less than 6 Hours Per Day (ICD-10-PCS; 2019-06-23)
PROC: 0JH63XZ Insertion of Tunneled Vascular Access Device into Chest Subcutaneous Tissue and Fascia, Percutaneous Approach (ICD-10-PCS; principal; 2019-06-27)
PROC: 02HV33Z Insertion of Infusion Device into Superior Vena Cava, Percutaneous Approach (ICD-10-PCS; 2019-06-27)
PROC: B518YZA Fluoroscopy of Superior Vena Cava using Other Contrast, Guidance (ICD-10-PCS; 2019-06-27)
PROC: 03180ZD Bypass Left Brachial Artery to Upper Arm Vein, Open Approach (ICD-10-PCS; 2019-06-29)
PROC: 05H533Z Insertion of Infusion Device into Right Subclavian Vein, Percutaneous Approach (ICD-10-PCS; 2019-07-03)
DX: T82.41XA Breakdown (mechanical) of vascular dialysis catheter, initial encounter (principal); N18.6 End stage renal disease; G93.41 Metabolic encephalopathy; I13.2 Hypertensive heart and chronic kidney disease with heart failure and with stage 5 chronic kidney disease, or end stage renal disease; N39.0 Urinary tract infection, site not specified; E87.1 Hypo-osmolality and hyponatremia; I50.22 Chronic systolic (congestive) heart failure; I69.351 Hemiplegia and hemiparesis following cerebral infarction affecting right dominant side; Y71.2 Prosthetic and other implants, materials and accessory cardiovascular devices associated with adverse incidents; E11.22 Type 2 diabetes mellitus with diabetic chronic kidney disease; Z99.2 Dependence on renal dialysis; Z79.4 Long term (current) use of insulin; F41.9 Anxiety disorder, unspecified; E11.51 Type 2 diabetes mellitus with diabetic peripheral angiopathy without gangrene; D63.8 Anemia in other chronic diseases classified elsewhere; E78.5 Hyperlipidemia, unspecified; E83.42 Hypomagnesemia; Z98.1 Arthrodesis status; Z79.82 Long term (current) use of aspirin; Z87.891 Personal history of nicotine dependence; N40.1 Benign prostatic hyperplasia with lower urinary tract symptoms; E83.39 Other disorders of phosphorus metabolism; B18.2 Chronic viral hepatitis C; D72.829 Elevated white blood cell count, unspecified; E11.40 Type 2 diabetes mellitus with diabetic neuropathy, unspecified; I25.10 Atherosclerotic heart disease of native coronary artery without angina pectoris; K21.9 Gastro-esophageal reflux disease without esophagitis; Z91.19 Patient's noncompliance with other medical treatment and regimen; A49.01 Methicillin susceptible Staphylococcus aureus infection, unspecified site
CPT/HCPCS: 36415; 36600; 70450-TC; 71045-TC; 72040-TC; 80048-TC; 80061-TC; 80202-TC; 81000-TC; 82140-TC; 82962-TC; 83735-TC; 84100-TC; 84153-TC; 84154-TC; 85025-TC; 87040-TC; 87081-TC; 87086-TC; 90935-TC; 92526; 92611-TC; 93307-TC; 93880-TC; 97110-TC; 97116-TC; 97530-TC; A4216; A4349; C1750; C1769; G0378; J0690; J1644; J1815; J2250; J2405; J2704; J2720; J2765; J2997; J3010; J3370; J3475; J3490; J7030; J7060; J7070

== ENCOUNTER 2020-04-07 13:06 | Inpatient (IN) | payer MEDICARE, OTHER ==
[~2020-04-07] VITALS: Ht 167.6 cm; Wt 64.0 kg
[~2020-04-07 13:06] MED LIST changes: +BACL10TA PO; +LIDOCAINE PATCH TP; +MAGN400O6 PO; +MULT-447 PO; +NA P133E RC; -SENN-168 PO; +SENN-261 PO; +ZINC1CAP2 PO
--- NOTE | 2020-04-07 13:06 | NUR ---
PT BIBPA FROM SNF C/O NAUSEA/VOMITING STARTED LAST NIGHT, PT IS AAOX3, NOT IN RESPIRATORY DISTRESS, V/S STABLE, KEPT RESTED AND COMFORTABLE, WILL CONTINUE TO MONITOR.
--- NOTE | 2020-04-07 13:20 | NUR ---
IV LINE ESTABLISHED.
[2020-04-07] MEDS ORDERED: LIDO30AD10 TP (13:41)
[2020-04-07] MEDS ORDERED: ACET-868 PO (13:41)
[2020-04-07] MEDS ORDERED: SELE180S13 TP (13:41)
[2020-04-07] MEDS ORDERED: PANT20TA2 PO (13:41)
[2020-04-07] MEDS ORDERED: NUT.237L67 PO (13:41)
[2020-04-07] MEDS ORDERED: MAG30ORA PO (13:41)
[2020-04-07] MEDS ORDERED: CLOP75TA15 PO (13:41)
[2020-04-07] MEDS ORDERED: HYDR4TAB4 PO (13:41)
[2020-04-07] MEDS ORDERED: ISOS20TA8 PO (13:41)
[2020-04-07] MEDS ORDERED: SEVE800T8 PO (13:41)
[2020-04-07] MEDS ORDERED: AMIN30LI2 PO (13:41)
--- NOTE | 2020-04-07 13:42 | NUR ---
AT BEDSIDE FOR EVAL.
[2020-04-07] MEDS ORDERED: ONDANSETRON HCL/PF 4 MG/2 ML VIAL ONE (13:53)
[2020-04-07] MEDS ORDERED: IV NS 0.9% 500 ML BAG IV ONE (14:00)
[2020-04-07] MEDS ORDERED: ONDANSETRON HCL/PF 4 MG/2 ML VIAL IVP ONE (14:00)
[2020-04-07] MEDS ORDERED: MORPHINE SULFATE INJ 2 MG/ML DISP.SYRIN IV ONE ×2 (14:30→17:00)
[2020-04-07] MEDS ORDERED: MORPHINE SULFATE INJ 4 MG/ML DISP.SYRIN ONE ×2 (14:33→16:46)
[2020-04-07 14:37] LABS: BASOPHILS % (AUTO) 0.4 % (0.0-2.0); EOSINOPHILS % (AUTO) 1.8 % (0.0-6.0); HEMATOCRIT 43 % (39-51); HEMOGLOBIN 13.8 g/dL (13.5-17.5); LYMPHOCYTES # (AUTO) 1.6 /CMM (0.8-4.8); LYMPHOCYTES % (AUTO) 14.6 % (20.0-44.0); MEAN CORPUSCULAR HGB CONC 32 g/dl (31.0-36.0); MEAN CORPUSCULAR VOLUME 97 fL (80-96); MONOCYTES # (AUTO) 1.1 /CMM (0.1-1.30); MONOCYTES % (AUTO) 10.2 % (2.0-12.0); NEUTROPHILS # (AUTO) 7.9 /CMM (1.8-8.9); PLATELET COUNT (AUTO) 165 /CMM (150-450); RED BLOOD CELL COUNT(AUTO) 4.46 MIL/uL (4.5-6.0); WHITE BLOOD COUNT (AUTO) 10.8 K/uL (4.3-11.0)
[2020-04-07 14:52] LABS: ALANINE AMINOTRANSFERASE 34 U/L (12-78); ALBUMIN 3.5 g/dL (3.4-5.0); ALKALINE PHOSPHATASE 73 U/L (46-116); ASPARTATE AMINOTRANSFERASE 23 U/L (15-37); BILIRUBIN,DIRECT 0.1 mg/dL (0.0-0.2); BILIRUBIN,TOTAL 0.4 mg/dL (0.2-1.0); CALCIUM, SERUM 9.8 mg/dL (8.5-10.1); CARBON DIOXIDE 25 mmol/L (21-32); CHLORIDE 96 mmol/L (98-107); GLUCOSE 162 mg/dL (74-106); POTASSIUM 4.1 mmol/L (3.5-5.1); SODIUM SERUM 133 mmol/L (136-145); TOTAL PROTEIN, SERUM 8.3 g/dL (6.4-8.2)
[2020-04-07 14:53] LABS: UREA NITROGEN, BLOOD 95 mg/dL (7-18)
--- NOTE | 2020-04-07 17:07 | NUR ---
Paged Dr Jasso for admission
--- NOTE | 2020-04-07 17:22 | NUR ---
AT BEDSIDE FOR EVAL.
[2020-04-07] MEDS ORDERED: HYDROCODONE/APAP 5/325MG 1 EACH TABLET PO PRN (17:30)
[2020-04-07] MEDS ORDERED: MAGNESIUM HYDROXIDE 30 ML UDC PO PRN (17:30)
[2020-04-07] MEDS ORDERED: ACETAMINOPHEN 325 MG TABLET PO PRN (17:30)
[2020-04-07] MEDS ORDERED: MAG HYDROX/AL HYDROX/SIMETH 30 ML UDC PO PRN (17:30)
[2020-04-07] MEDS ORDERED: ZOLPIDEM TARTRATE 5 MG TABLET PO PRN (17:30)
[2020-04-07] MEDS ORDERED: Z GUARD REMEDY 2 OZ OINT TP PRN (17:30)
--- NOTE | 2020-04-07 17:43 | NUR ---
TONY CH Addendum: 04/07/20 at 1743 by RBATACLAN TONY MARTE
--- NOTE | 2020-04-07 17:50 | NUR ---
REPORT GIVEN TO ТАТЬЯНА PATINO FOR KIMBER.
--- NOTE | 2020-04-07 18:12 | NUR ---
ER DOC ON PHONE WITH QA AUTOMATION DEVELOPER
--- NOTE | 2020-04-07 18:50 | NUR ---
MS RN NOTES RECEIVED PATIENT VIA GURNEY FROM ER NURSE. TRANSFERRED PATIENT TO BED. ORIENTED PATIENT TO ROOM, UNIT AND CALL LIGHT. NOTED PATIENT WITH EMESIS OF 100ML. REMAINS NPO. RIGHT WRIST # 20 INTACT AND PATENT INFUSING D5 1/2 NS AT 125ML/HR BALDOMERO WELL. LEFT ARM FISTULA WITH GOOD BRUIT/THRILL, RIGHT UPPER CHEST HD ACCESS INTACT. ALERT AND ORIENTED X3. HOB ELEVATED. NO S/S OF RESPIRATORY DISTRESS. BED IN LOWEST POSITION, LOCKED. BED ALARM ON. CALL LIGHT WITHIN REACH. ABLE TO VERBALIZE NEEDS. ENDORSED TO ONCOMING SHIFT. V/S 155/68 HR: 65; T: 97.8; RR: 18 SPO2 96%
[2020-04-07] MEDS: ONDANSETRON HCL/PF 4 MG/2 ML VIAL IVP PRN (19:19)
[2020-04-07] MEDS: IV D5/0.45 NACL 1,000 ML IV PRN (19:26)
--- NOTE | 2020-04-07 20:00 | NUR ---
RN NOTES NEW ADMIT FROM ED DUE TO N/V STARTED 04/07/20, PER PATIENT LAST MEAL WAS BREAKFAST. ALERT AND ORIENTED X4, ON ROOM AIR, ACTIVELY VOMITING OF UNDIGESTED FOOD, LAST EMESIS 100 ML, WAS GIVEN ZOFRAN BY AM NURSE SHORTLY AFTER ARRIVAL IN UNIT. DX SMALL BOWEL OBSTRUCTION AND ACUTE KIDNEY INJURY. HX OF ESRD ON HD, LEFT FOREARM AV SHUNT NOTED WITH THRILL AND BRUIT, RCW HD CATH SECURED WITH DRESSING. PER PATIENT, STILL VOIDING, HAD A SMEAR OF A STOOL, STAGE 1 PRESSURE ULCER ON THE BUTTOCKS, PHOTO TAKEN, NPO AT THIS TIME, WITH D51/2 NS AT 125 ML/HR, DENIES NUMBNESS TO BLE, NON AMBULATORY, USES WHEELCHAIR, REQUIRES HELP WITH TRANSFER.
[2020-04-07 20:56] VITALS: BP 150/79
[2020-04-08] VITALS: BP 155/64
[2020-04-08] MEDS ORDERED: DEXTROSE 50%-WATER 50 ML DISP.SYRIN IV PRN (01:00)
[2020-04-08] MEDS: INSULIN REGULAR, HUMAN 100 UNIT/ML 3 ML VIAL SQ PRN ×4 (01:14→18:04)
[2020-04-08] MEDS: MORPHINE SULFATE INJ 2 MG/ML DISP.SYRIN IV PRN (01:15)
--- NOTE | 2020-04-08 01:21 | NUR ---
RN NOTES NO ANTICOAGULANT FOR VTE AT THIS TIME PER WHEEL ALIGNMENT TECHNICIAN IVIS PT HAS DX OF SBO
[2020-04-08] MEDS: ONDANSETRON HCL/PF 4 MG/2 ML VIAL IVP PRN ×2 (02:38→15:50)
[2020-04-08] MEDS: IV D5/0.45 NACL 1,000 ML IV PRN (02:39)
[2020-04-08 04:00] VITALS: BP 145/83
[2020-04-08] MEDS ORDERED: BLOOD SUGAR DIAGNOSTIC 1 EACH STRIP IN SCH ×2 (06:00)
[2020-04-08] MEDS: BLOOD SUGAR DIAGNOSTIC 1 EACH STRIP IN SCH ×4 (06:30→23:30)
[2020-04-08 06:35] LABS: BASOPHILS % (AUTO) 0.4 % (0.0-2.0); EOSINOPHILS % (AUTO) 1.9 % (0.0-6.0); HEMATOCRIT 41 % (39-51); HEMOGLOBIN 13.3 g/dL (13.5-17.5); LYMPHOCYTES # (AUTO) 1.7 /CMM (0.8-4.8); LYMPHOCYTES % (AUTO) 18.9 % (20.0-44.0); MEAN CORPUSCULAR HGB CONC 32 g/dl (31.0-36.0); MEAN CORPUSCULAR VOLUME 96 fL (80-96); MONOCYTES # (AUTO) 1.1 /CMM (0.1-1.30); MONOCYTES % (AUTO) 12.2 % (2.0-12.0); NEUTROPHILS % (AUTO) 66.6 % (43.0-81.0); PLATELET COUNT (AUTO) 173 /CMM (150-450); RED BLOOD CELL COUNT(AUTO) 4.28 MIL/uL (4.5-6.0); WHITE BLOOD COUNT (AUTO) 9.1 K/uL (4.3-11.0)
[2020-04-08 06:55] LABS: CALCIUM, SERUM 9.1 mg/dL (8.5-10.1); CARBON DIOXIDE 23 mmol/L (21-32); CHLORIDE 95 mmol/L (98-107); CREATININE 6.4 mg/dL (0.6-1.3); GLUCOSE 175 mg/dL (74-106); MAGNESIUM 1.7 mg/dL (1.8-2.4); PHOSPHORUS 6.1 mg/dL (2.5-4.9); POTASSIUM 4.4 mmol/L (3.5-5.1); SODIUM SERUM 131 mmol/L (136-145)
[2020-04-08 06:57] LABS: CHOLESTEROL 97 mg/dL (<200); HDL CHOLESTEROL 40 mg/dL (40-60); LDL 42 mg/dL (0-99); THYROID STIMULATING HORMONE 6.825 uIU/mL (0.358-3.74); TRIGLYCERIDES 61 mg/dL (30-150)
--- NOTE | 2020-04-08 06:57 | NUR ---
RN NOTES PATIENT ALERT AND ORIENTED X4, ROOM AIR, GIVEN MORPHINE X2 FOR EPIGASTRIC PAIN, ZOFRAN FOR N/V WITH CLEAR, FOAMY EMESIS, NON AMBULATORY, ACCUCHECK Q6HRS, NPO SINCE ADMISSION, SOFT STOOL, SMEAR OF A STOOL, D5 1/2 NS AT 125 ML/HR, ESRD ON HD, PER CT, FOCAL ILEUS VS PARTIAL SMALL BOWEL OBSTRUCTION, FOR HD TODAY
[2020-04-08 07:03] LABS: UREA NITROGEN, BLOOD 97 mg/dL (7-18)
[2020-04-08] MEDS: PANTOPRAZOLE 40 MG VIAL IV SCH (08:15)
[2020-04-08 08:24] VITALS: BP 137/60
[2020-04-08] MEDS ORDERED: IV D5/0.45 NACL 1,000 ML IV PRN (10:40)
[2020-04-08] MEDS ORDERED: Magnesium 1GM/D5W 100ML PREMIX 100 ML IV SCH (11:00)
--- NOTE | 2020-04-08 11:40 | NUR ---
RN NOTE RECEIVED ORDER BY DR GRIFFIN TO SWAB THE PATIENT FOR COVID-19. READ BACK, VERIFIED. NOTED AND CARRIED OUT.
[2020-04-08] MEDS: IV D5/ 0.9% NACL 1,000 ML IV PRN ×2 (11:50→20:52)
--- NOTE | 2020-04-08 12:41 | NUR ---
RN NOTE RECEIVED ORDER FROM DR GRIFFIN FOR NG TUBE INSERTION FOR LOW INTERMITTENT SUCTION. READ BACK, VERIFIED. NOTED AND CARRIED OUT.
--- NOTE | 2020-04-08 12:45 | NUR ---
RN NOTE Performed Covid-19 swab by mouth on the patient and sent to lab.
--- NOTE | 2020-04-08 12:45 | NUR ---
MS RN NOTE PATIENT REFUSED NGT INSERTION. PATIENT STATED, "I HAD IT BEFORE AND I DON'T WANT IT AGAIN!" DR. GABY QUEVEDO.
[2020-04-08 16:05] VITALS: BP 171/78
--- NOTE | 2020-04-08 19:00 | NUR ---
MS RN NOTES PATIENT COMPLETED HD DIALYSIS, PER HD NURSE 500ML OUTPUT. HD NURSE ALSO CHANGED RIGHT CHEST WALL HD ACCESS DRESSING. LEFT FA AV FISTULA WITH GOOD BRUIT/THRILL. PATIENT DENIES ANY C/O PAIN NOR DISCOMFORT AT THIS TIME. ABLE TO VERBALIZE NEEDS.
--- NOTE | 2020-04-08 19:33 | NUR ---
MS RN NOTES PATIENT SEEN AND EXAMINED BY DR. GRIFFIN, ACCOMPANIED BY NOC SHIFT NURSE. MD SPOKE TO PATIENT REGARDING NGT AND COMPLICATIONS OF SBO AND SURGERY. PER PATIENT HE WILL DECIDE TOMORROW IF HE WILL AGREE TO THE NGT INSERTION IF HE DOESN'T FEEL BETTER.
--- NOTE | 2020-04-08 19:33 | NUR ---
MS RN OPEN NOTES PATIENT IS WATCHING TV IN BED. A/O X4. ON RA, NO SOB/ ACUTE RESPIRATORY DISTRESS NOTED. BED IS IN LOWEST LOCKED POSITION WITH SIDE RAILS UP X2, SEMI FOWLERS. CALL LIGHT IS WITHIN REACH. WILL CONTINUE TO MONITOR. PATIENT ALSO SEEN BY DR. GRIFFIN ALONG WITH AM NURSE AT BEDSIDE. DR. GRIFFNI EXPLAINED BENEFITS OF AN NGT HOWEVER PATIENT IS STILL UNSURE IF HE WANTS ONE INSERTED. PT STATED HE WILL DECIDE TOMORROW MORNING WHETHER HE WANTS ONE.
--- NOTE | 2020-04-08 19:34 | NUR ---
RN Closing Notes Patient is A/O x 4. In room air with no signs of distress and no shortness of breath. Hemodialysis on the Right chest wall @1500. Scheduled medications were given. R hand #20 G intact and patent infusing Normal Saline. Right chest wall and Left AV shunt is patent. Accuchecks were done under normal limits of insulin sliding scale. Covid -19 results pending. Bed is in low settings, side rails up for safety and call light is within reach. Endorsed to oncoming shift.
[2020-04-08 20:00] VITALS: BP 142/62
--- NOTE | 2020-04-09 03:45 | NUR ---
RN NOTES DOOR IS KEPT OPEN PER PATIENT'S REQUEST DESPITE HIS COVID RESULTS PENDING. RESEARCH MICROBIOLOGIST NOTIFIED. PATIENT STATED THAT HE GOT REALLY MAD WHEN HIS DOOR WAS CLOSED DUE TO HIM BEING CLAUSTROPHOBIC. HE STATED THAT HE WANTS TO LEAVE BECAUSE WHEN THE DOOR IS CLOSED HE FEELS LIKE HE CAN'T BREATHE.
[2020-04-09] MEDS: BLOOD SUGAR DIAGNOSTIC 1 EACH STRIP IN SCH ×4 (05:55→23:10)
[2020-04-09] MEDS: INSULIN REGULAR, HUMAN 100 UNIT/ML 3 ML VIAL SQ PRN ×3 (06:11→23:12)
--- NOTE | 2020-04-09 06:15 | NUR ---
rn close notes PATIENT IS LAYING IN BED. A/O X4. ON RA, NO SOB/ ACUTE RESPIRATORY DISTRESS NOTED. IV ON R HAND #22 IS PATENT AND INTACT RUNNING D5NS @ 75MLS/HR. PATIENT REMAINS NPO. BED IS IN LOWEST LOCKED POSITION WITH SIDE RAILS UP X2, SEMI FOWLERS. CALL LIGHT IS WITHIN REACH. WILL ENDORSE TO AM NURSE.
[2020-04-09 06:41] LABS: CALCIUM, SERUM 7.3 mg/dL (8.5-10.1); CARBON DIOXIDE 23 mmol/L (21-32); CHLORIDE 106 mmol/L (98-107); CREATININE 4.3 mg/dL (0.6-1.3); MAGNESIUM 1.5 mg/dL (1.8-2.4); PHOSPHORUS 3.7 mg/dL (2.5-4.9); POTASSIUM 3.6 mmol/L (3.5-5.1); SODIUM SERUM 141 mmol/L (136-145); UREA NITROGEN, BLOOD 45 mg/dL (7-18)
--- NOTE | 2020-04-09 07:00 | NUR ---
RN NOTES RECEIVED CALL FROM LAB STATING PATIENT'S GLUCOSE WAS 769. ASKED IF THEY CAN RERUN/ RETEST THE BLOOD AGAIN SINCE HIS ACCUCHECK AT 0600 WAS 182. WILL CONTINUE TO MONITOR PATIENT.
[2020-04-09 07:01] LABS: GLUCOSE 769 mg/dL (74-106)
[2020-04-09 08:00] VITALS: BP 155/78
--- NOTE | 2020-04-09 08:00 | NUR ---
MS RN OPENING NOTES Received Patient awake and resting in bed. A/O x 4. VS stable with no acute distress. Breathing even and unlabored on room air with no respiratory distress. Patient stated abdominal pain 06/27. Will intervene as ordered. Left AV Shunt clean and intact. Right Upper Chest Permacath clean and intact. 22g PIV on right hand clean, intact, patent and flushing well with D5NS infusing at 75ml/hr. Safety precautions in place. Bed locked and set to lowest position with side rails x 2 up. All needs rendered at this time. Call light within reach. Will continue to monitor.
[2020-04-09] MEDS ORDERED: Magnesium 1GM/D5W 100ML PREMIX 1 G in PREMIX 1 EA IV SCH (08:30)
[2020-04-09] MEDS: Magnesium 1GM/D5W 100ML PREMIX 100 ML IV SCH ×2 (09:19→11:20)
[2020-04-09] MEDS: PANTOPRAZOLE 40 MG VIAL IV SCH (09:19)
--- NOTE | 2020-04-09 09:45 | NUR ---
MS RN NOTES Patient refused NG Tube placement at this time. Explained risks and benefits. Patient still refused.
[2020-04-09] MEDS: ONDANSETRON HCL/PF 4 MG/2 ML VIAL IVP PRN (10:35)
[2020-04-09] MEDS: MORPHINE SULFATE INJ 2 MG/ML DISP.SYRIN IV PRN (10:35)
[2020-04-09 11:51] LABS: BASOPHILS % (AUTO) 0.3 % (0.0-2.0); HEMATOCRIT 40 % (39-51); HEMOGLOBIN 12.7 g/dL (13.5-17.5); LYMPHOCYTES # (AUTO) 0.8 /CMM (0.8-4.8); LYMPHOCYTES % (AUTO) 9.6 % (20.0-44.0); MEAN CORPUSCULAR HGB CONC 32 g/dl (31.0-36.0); MEAN CORPUSCULAR VOLUME 97 fL (80-96); MONOCYTES # (AUTO) 0.9 /CMM (0.1-1.30); NEUTROPHILS # (AUTO) 6.8 /CMM (1.8-8.9); NEUTROPHILS % (AUTO) 80.1 % (43.0-81.0); PLATELET COUNT (AUTO) 130 /CMM (150-450); RED BLOOD CELL COUNT(AUTO) 4.15 MIL/uL (4.5-6.0); WHITE BLOOD COUNT (AUTO) 8.5 K/uL (4.3-11.0)
--- NOTE | 2020-04-09 14:15 | NUR ---
MS RN NOTES Inserted NG Tube at this time. Patient tolerated well. Ordered STAT Chest X-ray for placement confirmation.
[2020-04-09 16:00] VITALS: BP 149/61
--- NOTE | 2020-04-09 19:26 | NUR ---
MS RN CLOSING NOTES Patient awake and resting in bed. A/O x 4. VS stable with no acute distress. Breathing even and unlabored on room air with no respiratory distress. Denies pain. No signs and symptoms of pain. Left AV Shunt clean and intact. Right Upper Chest Permacath clean and intact. 22g PIV on right hand clean, intact, patent and flushing well with D5NS infusing at 75ml/hr. Safety precautions in place. Bed locked and set to lowest position with side rails x 2 up. All needs rendered at this time. Call light within reach. Will endorse plan of care to oncoming shift.
--- NOTE | 2020-04-09 19:45 | NUR ---
MS RN OPENING NOTES Patient received resting in bed, a/o x 4. Stable on RA with breathing even and unlabored, no sob noted. No signs of acute distress. No complaints of pain or discomfort at the moment . NG tube noted and in place on left nostril on low intermittent suction with ouutput. IV located on right hand #22 running D5 NS @ 75ml/hr. Rchest wall permacath and LAC shunt noted and in place. Safety precautions in place with bed in lowest position, call light within reach, breaks on, side rails up. Will continue to monitor throughout the shift.
[2020-04-09] MEDS: IV D5/ 0.9% NACL 1,000 ML IV PRN (19:52)
--- NOTE | 2020-04-09 20:00 | NUR ---
MS RN NOTES X-RAY X-ray called about small bowel follow through, patient refused to have it done throughout the night prefers in the morning. Told x-ray and will follow up in the morning.
--- NOTE | 2020-04-09 20:15 | NUR ---
MS RN NOTES Patient agreed to do bowel follow through [facility], contacted x-ray.
[2020-04-09] MEDS ORDERED: DIATR MEGLU/DIATRIZOATE SODIUM 120 ML BOTTLE (GASTROGRAPHIN) ONE (20:19)
[2020-04-09 20:29] VITALS: BP 155/70
--- NOTE | 2020-04-09 20:43 | NUR ---
MS RN NOTES X-RAY AT BEDSIDE TO START SMALL BOWEL THROUGH STUDY.
[2020-04-09] MEDS: KETOCONAZOLE 2% CREAM 15 GM TUBE TP SCH (21:14)
--- NOTE | 2020-04-09 21:21 | NUR ---
MS RN NOTES PATIENT WANTED KETOCONAZOLE CREAM FOR FACE PER REQUEST. ADMINISTERED.
[2020-04-10] MEDS: ONDANSETRON HCL/PF 4 MG/2 ML VIAL IVP PRN
--- NOTE | 2020-04-10 00:03 | NUR ---
MS RN NOTES PATIENT HAD 300 CC CLEAR YELLOW EMESIS. PRN ZOFRAN ADMINISTERED, WILL CONTINUE TO MONITOR.
--- NOTE | 2020-04-10 04:54 | NUR ---
MS RN NOTES X-RAY CALLED, NOTIFIED SMALL BOWEL FOLLOW THROUGH WAS COMPLETED. CONTINUED NG TUBE LOW INTERMITTENT SUCTIONING.
[2020-04-10] MEDS: BLOOD SUGAR DIAGNOSTIC 1 EACH STRIP IN SCH ×3 (05:17→18:05)
[2020-04-10] MEDS: INSULIN REGULAR, HUMAN 100 UNIT/ML 3 ML VIAL SQ PRN (05:19)
[2020-04-10 06:13] LABS: BASOPHILS % (AUTO) 0.1 % (0.0-2.0); HEMATOCRIT 40 % (39-51); HEMOGLOBIN 12.5 g/dL (13.5-17.5); LYMPHOCYTES # (AUTO) 1.1 /CMM (0.8-4.8); MEAN CORPUSCULAR HGB CONC 32 g/dl (31.0-36.0); MEAN CORPUSCULAR VOLUME 98 fL (80-96); MONOCYTES # (AUTO) 0.8 /CMM (0.1-1.30); NEUTROPHILS # (AUTO) 5.1 /CMM (1.8-8.9); NEUTROPHILS % (AUTO) 72.9 % (43.0-81.0); PLATELET COUNT (AUTO) 139 /CMM (150-450); RED BLOOD CELL COUNT(AUTO) 4.05 MIL/uL (4.5-6.0); WHITE BLOOD COUNT (AUTO) 7.1 K/uL (4.3-11.0)
--- NOTE | 2020-04-10 06:41 | NUR ---
MS RN CLOSING NOTES Patient received resting in bed, a/o x 4. Stable on RA with breathing even and unlabored, no sob noted. No signs of acute distress. No complaints of pain or discomfort at the moment . NG tube noted and in place on left nostril on low intermittent suction with ouutput. IV located on right hand #22 running D5 NS @ 75ml/hr. Rchest wall permacath and LAC shunt noted and in place. Safety precautions in place with bed in lowest position, call light within reach, breaks on, side rails up. Patient kept NPO throughout the night. All needs attended to throughout the night. Will endorse to oncoming shift.
[2020-04-10 07:46] LABS: CALCIUM, SERUM 8.1 mg/dL (8.5-10.1); CARBON DIOXIDE 21 mmol/L (21-32); CHLORIDE 107 mmol/L (98-107); CREATININE 5.4 mg/dL (0.6-1.3); MAGNESIUM 2.4 mg/dL (1.8-2.4); PHOSPHORUS 4.1 mg/dL (2.5-4.9); POTASSIUM 3.9 mmol/L (3.5-5.1); SODIUM SERUM 144 mmol/L (136-145); UREA NITROGEN, BLOOD 55 mg/dL (7-18)
[2020-04-10 07:59] LABS: GLUCOSE 639 mg/dL (74-106)
[2020-04-10 08:00] VITALS: BP 157/69
[2020-04-10] MEDS: PANTOPRAZOLE 40 MG VIAL IV SCH (08:16)
--- NOTE | 2020-04-10 09:45 | NUR ---
RN OPENING NOTE Patient resting in bed, AO x 4. Respirations even, unlabored. NG tube in place on left nostril on low intermittent suction with output. IV on right hand #22 running D5 NS @ 75ml/hr. Right chest wall permacath and LAC shunt intact. Dialysis nurse in room. Safety precautions in place with bed in lowest position, call light within reach, breaks on, side rails up.
--- NOTE | 2020-04-10 10:40 | NUR ---
Patient seen by dr. Salcido at bedside. Dr. Salcido aware of BS level 624. No new orders at this time , continue on fluid D5 in NS with the same rate. Tell lab staff draw blood from apposite site.
[2020-04-10] MEDS: IV D5/ 0.9% NACL 1,000 ML IV PRN (10:48)
--- NOTE | 2020-04-10 12:45 | NUR ---
HD done with output 2000ml.Patient awake , VS are stable
[2020-04-10 16:00] VITALS: BP 170/76
--- NOTE | 2020-04-10 18:29 | NUR ---
MS RN CLOSING NOTE Patient resting in bed, AOx4. Breathing even, unlabored. No signs of SOB. Pt denies N/V/C. Pt denies pain. NG tube left nostril on low intermittent suction. IV in right hand 22g. D5 NS @ 75 ml/hr. R chest wall permacath. Safety precautions in place. Bed low, wheels locked. Call light within reach. Siderails up. Patient on NPO. Will endorse to oncoming shift.
--- NOTE | 2020-04-10 19:36 | NUR ---
MS RN OPENING NOTES Patient received resting in bed, a/o x 3. Stable on RA with breathing even and unlabored, no sob noted. No signs of acute distress. No complaints of pain or discomfort at the moment . NG tube noted and in place on left nostril on low intermittent suction with output. IV located on right hand #22 running D5 NS @ 75ml/hr. R chest wall permacath and LAC shunt noted and in place. Safety precautions in place with bed in lowest position, call light within reach, breaks on, side rails up. Will continue to monitor throughout the shift.
[2020-04-10 20:00] VITALS: BP 150/65
--- NOTE | 2020-04-10 20:00 | NUR ---
RN OPENING NOTE: Patient received resting in bed. Patient is awake and alert. Patient breathing is unlabored and equal. Patient shows no signs of SOB or distress. Patient does not complain of pain. NG tube in left nostril is intact and on low intermittent suction. Patient is tolerating suction well. Patient IV on right hand. It is 22 gauge, intact, no redness or infiltration. IV fluid D5NS currently running. Safety precaution is implemented, bed in the lowest position, side rails x2 are up, bed brakes are on, and call light within reach. Will continue care of plan and monitor.
[2020-04-10 20:09] VITALS: BP 150/65
--- NOTE | 2020-04-10 20:29 | NUR ---
MS RN NOTES REPORT GIVEN TO ТАТЬЯНА AUGUSTIN/ LYDIA FOR KIMBER.
[2020-04-11] MEDS: BLOOD SUGAR DIAGNOSTIC 1 EACH STRIP IN SCH ×4 (00:49→17:25)
[2020-04-11] MEDS: INSULIN REGULAR, HUMAN 100 UNIT/ML 3 ML VIAL SQ PRN ×2 (01:14→17:33)
--- NOTE | 2020-04-11 07:30 | NUR ---
RN NOTES Received patient resting in bed in moderate high back rest, a/o x 3. Patient breathing is unlabored and equal. No signs of distress noted at this time. NG tube on left nostril, intact and on low intermittent suction. No IV access, will try to re-insert IV later. Safety measures in place, bed in the lowest position, side rails x2, bed brakes are on, and call light within reach. Will continue to monitor.
[2020-04-11 08:00] VITALS: BP 148/64
--- NOTE | 2020-04-11 08:00 | NUR ---
RN NOTES IV ACCESS INSERTED ON RFA #20, PATENT AND INTACT, WILL RUN D5NS @75 ML/HR PER MD ORDER.
[2020-04-11] MEDS: PANTOPRAZOLE 40 MG VIAL IV SCH (08:15)
[2020-04-11] MEDS: KETOCONAZOLE 2% CREAM 15 GM TUBE TP SCH (08:19)
[2020-04-11 16:07] VITALS: BP 142/72
--- NOTE | 2020-04-11 18:11 | NUR ---
RN NOTES PER NALDO WALTER. TO CLAMP PATIENT NG TUBE AND START WITH CLEAR LIQUID DIET. WILL CONTINUE TO MONITOR.
--- NOTE | 2020-04-11 18:52 | NUR ---
RN NOTES Patient resting in bed in moderate high back rest, a/o x 3. Patient breathing is unlabored and equal. No signs of distress noted throughout the shift. NG tube on left nostril, intact and clamped. IV fluids on RFA#20, intact and patent, running will, Safety measures in place, bed in the lowest position, side rails x2, bed brakes are on, and call light within reach. Will Endorse to typesetter perforator operator nurse for karoline.
--- NOTE | 2020-04-11 20:00 | NUR ---
RN MS OPENING NOTE: Received patient resting in bed, awake and alert. Patient is AOx4. NG tube is clamped with low intermittent suction off. Right forearm IV, 20 gauge. IV site patent, no redness or infiltration. Patient does not complain of pain or discomfort. Patient breathing unlabored and equal. Safety precaution maintained. bed in lowest position, bed brakes on, side rails x2 are up, and call light is within reach. Will continue plan of care.
[2020-04-11 20:25] VITALS: BP 161/80
[2020-04-11] MEDS: ONDANSETRON HCL/PF 4 MG/2 ML VIAL IVP PRN (20:40)
--- NOTE | 2020-04-11 20:40 | NUR ---
RN MS NOTE: Patient complains of nausea. Administered PRN Zofran per order.
[2020-04-12] MEDS: BLOOD SUGAR DIAGNOSTIC 1 EACH STRIP IN SCH ×5 (00:06→17:07)
[2020-04-12] MEDS: INSULIN REGULAR, HUMAN 100 UNIT/ML 3 ML VIAL SQ PRN ×2 (00:18→11:16)
[2020-04-12] MEDS: IV D5/ 0.9% NACL 1,000 ML IV PRN ×2 (02:25→15:48)
--- NOTE | 2020-04-12 06:30 | NUR ---
MS RN CLOSING NOTE: Patient in bed sleeping comfortably. He is easily arousal. He shows no signs of pain or distress. Breathing is unlabored and equal; no SOB. Safety precaution is maintained; bed is in lowest position, bed brakes are on, alarm is on, side rails are up x 2, and call light is within reach. Will endorse on oncoming shift.
--- NOTE | 2020-04-12 07:29 | NUR ---
RN NOTES Received patient resting in bed in moderate high back rest, a/o x 3. Patient breathing is unlabored and equal. No signs of distress noted at this time. NG tube on left nostril, intact and on low intermittent suction. IV fluids on RFA #20 with D5NS running @75ml/hr, patent and intact, Safety measures in place, bed in the lowest position, side rails x2, bed brakes are on, and call light within reach. Will continue to monitor.
[2020-04-12 08:00] VITALS: BP 161/74
[2020-04-12] MEDS: PANTOPRAZOLE 40 MG VIAL IV SCH (08:27)
[2020-04-12] MEDS: KETOCONAZOLE 2% CREAM 15 GM TUBE TP SCH (08:32)
--- NOTE | 2020-04-12 12:00 | NUR ---
RN NOTES DIALYSIS NURSE ON UNIT, WILL DIALYZE AT BED SIDE, NO SIGNS OF DISTRESS NOTED, WILL CONTINUE TO MONITOR.
--- NOTE | 2020-04-12 14:21 | NUR ---
RN NOTES DIALYSIS DONE WITH OUTPUT OF 1L, TOLERATED WELL, NO SIGNS OF DISTRESS NOTED, WILL CONTINUE TO MONITOR.
[2020-04-12 16:00] VITALS: BP 138/54
--- NOTE | 2020-04-12 18:45 | NUR ---
RN NOTES Patient resting in bed in moderate high back rest, a/o x 3. Patient breathing is unlabored and equal. No signs of distress noted throughout the shift. NG tube intact on low intermittent suction with out put of 1500ml, Remain on NPO. IV fluids on RFA#20, intact and patent, running will, Safety measures in place, bed in the lowest position, side rails x2, bed brakes are on, and call light within reach. Will Endorse to special education preschool teacher nurse for karoline.
[2020-04-12 20:00] VITALS: BP 137/66
--- NOTE | 2020-04-12 20:00 | NUR ---
rn notes/assessment: received report from yara randle at 1900. pt a/o x3 on ra respirations even a nd unlabored. pt has ngtube inserted on left nare, connected to low intermittent suction, drainage is brown in color, about 100ml. pt npo, provided education for patient regarding purpose. pt denies any pain or discomfort at this time, no n/v reported. posted caution note for not taking any bp/blood draw on left arm due to av shunt. pt has rcw perm cath in placed, dressing c/d/i. rfa iv access, g 20 patent and flushing well, infusing with d5ns at 75ml/hr. discussed plan of care to pt. safety precautions for fall initiated, call light in reach, will continue monitoring pt.
[2020-04-13] MEDS: INSULIN REGULAR, HUMAN 100 UNIT/ML 3 ML VIAL SQ PRN ×3 (00:24→12:39)
[2020-04-13] MEDS: BLOOD SUGAR DIAGNOSTIC 1 EACH STRIP IN SCH ×4 (00:24→17:36)
[2020-04-13] MEDS: IV D5/ 0.9% NACL 1,000 ML IV PRN ×2 (03:48→18:50)
--- NOTE | 2020-04-13 05:29 | NUR ---
accu check 122: fingerstick blood sugar check performed and result obtained is 122, no insulin coverage gicven per sliding scale.
[2020-04-13 06:45] LABS: BASOPHILS % (AUTO) 0.4 % (0.0-2.0); EOSINOPHILS % (AUTO) 2.1 % (0.0-6.0); HEMATOCRIT 43 % (39-51); HEMOGLOBIN 13.7 g/dL (13.5-17.5); LYMPHOCYTES # (AUTO) 1.4 /CMM (0.8-4.8); LYMPHOCYTES % (AUTO) 19.1 % (20.0-44.0); MEAN CORPUSCULAR HGB CONC 32 g/dl (31.0-36.0); MEAN CORPUSCULAR VOLUME 96 fL (80-96); MONOCYTES # (AUTO) 1.4 /CMM (0.1-1.30); NEUTROPHILS # (AUTO) 4.2 /CMM (1.8-8.9); NEUTROPHILS % (AUTO) 58.4 % (43.0-81.0); PLATELET COUNT (AUTO) 185 /CMM (150-450); RED BLOOD CELL COUNT(AUTO) 4.44 MIL/uL (4.5-6.0); WHITE BLOOD COUNT (AUTO) 7.2 K/uL (4.3-11.0)
--- NOTE | 2020-04-13 06:45 | NUR ---
end of shift report: pt remains to have ngtube on left nare, connected to low intermittent suction, total output obtained is 700ml, brownish color. iv access remains patent and flushing well, infusing with d5ns at 75ml/hr, no s/s of iv infiltration noted. remains npo. accu check performed, insulin sliding scale coverage provided as ordered. vs remains stable, needs attended. xray kub order in am. safety precautions for fall remains engaged, call light in reach, will endorse to day rn for continuity of care.
[2020-04-13 06:57] LABS: CALCIUM, SERUM 9.1 mg/dL (8.5-10.1); CARBON DIOXIDE 26 mmol/L (21-32); CHLORIDE 106 mmol/L (98-107); CREATININE 5.9 mg/dL (0.6-1.3); GLUCOSE 143 mg/dL (74-106); MAGNESIUM 2.1 mg/dL (1.8-2.4); PHOSPHORUS 3.5 mg/dL (2.5-4.9); POTASSIUM 4.1 mmol/L (3.5-5.1); SODIUM SERUM 142 mmol/L (136-145)
[2020-04-13 07:03] LABS: UREA NITROGEN, BLOOD 47 mg/dL (7-18)
[2020-04-13 08:00] VITALS: BP 152/69
[2020-04-13] MEDS: PANTOPRAZOLE 40 MG VIAL IV SCH (09:15)
[2020-04-13] MEDS: KETOCONAZOLE 2% CREAM 15 GM TUBE TP SCH (09:22)
[2020-04-13 16:00] VITALS: BP 154/71
--- NOTE | 2020-04-13 18:00 | NUR ---
denies pain,ng to low intermittent suction.pleasant.dr. leung in to see pt.took few ice chips.vs stable.
--- NOTE | 2020-04-13 19:28 | NUR ---
MS RN OPENING NOTES PATIENT AWAKE IN BED. A/OX4. ON RA. NO S/S OF ACUTE RESPIRATORY DISTRESS; BREATHING IS EVEN AND UNLABORED. NO C/O PAIN AT THIS TIME. NG TUBE PRESENT ON LEFT NARE, LIGHT BROWN DRAINAGE PRESENT. PATIENT CURRENTLY NPO. SAFETY MEASURES IN PLACE AND PATIENT'S NEEDS MET. BED LOCKED, ALARM ON, SIDE RAILS X2, CALL LIGHT WITHIN REACH. WILL CONTINUE TO MONITOR.
[2020-04-13 20:00] VITALS: BP 149/74
[2020-04-14] MEDS: BLOOD SUGAR DIAGNOSTIC 1 EACH STRIP IN SCH ×4 (00:04→18:39)
[2020-04-14] MEDS: INSULIN REGULAR, HUMAN 100 UNIT/ML 3 ML VIAL SQ PRN ×2 (00:07→06:13)
[2020-04-14] MEDS: ONDANSETRON HCL/PF 4 MG/2 ML VIAL IVP PRN (01:45)
--- NOTE | 2020-04-14 03:40 | NUR ---
MS RN NOTES PATIENT VERBALLY ABUSIVE/AGGRESSIVE AND YELLING PROFANITY TOWARDS NURSING STAFF. "I SWEAR I'LL COME BACK HERE AND FK YOU UP; YOU STUPID ASS MOTHERFS; YOU GUYS ARE EVIL", ETC. INFORMED PATIENT THAT AGGRESSIVE BEHAVIOR IS NOT ALLOWED, TRIED TO ASSIST PATIENT AND MAKE COMFORTABLE, HOWEVER PATIENT CONTINUED YELLING PROFANITY. SECURITY CALLED TO UNIT FOR ASSISTANCE. Addendum: 04/14/20 at 0400 by BARBARA PERRY RN WRONG PATIENT
--- NOTE | 2020-04-14 07:13 | NUR ---
MS RN CLOSING NOTES PATIENT SLEEPING IN BED, EASY TO AWAKEN. A/OX4. NO S/S OF ACUTE RESPIRATORY DISTRESS; BREATHING IS EVEN AND UNLABORED. NO C/O PAIN AT THIS TIME. NG TUBE REMAINS INTACT & PATENT ON LEFT NARE RUNNING ON LOW INTERMITTENT SUCTION, 700 CC OF LIGHT BROWN FLUID REMOVED DURING SHIFT. IV ON RIGHT FA, SIZE 20 INTACT & PATENT WITH D5NS RUNNING AT 75ML/HR. PATIENT CURRENTLY NPO. SAFETY MEASURES IN PLACE AND PATIENT'S NEEDS MET. BED LOCKED, ALARM ON, SIDE RAILS X2, CALL LIGHT WITHIN REACH. WILL ENDORSE TO DAY SHIFT NURSE PLAN OF CARE.
--- NOTE | 2020-04-14 07:38 | NUR ---
MS/RN OPENING NOTES RECEIVED PATIENT SLEEPING IN BED, EASY TO AWAKEN. A/OX4. NO S/S OF ACUTE RESPIRATORY DISTRESS; BREATHING IS EVEN AND UNLABORED. NO C/O PAIN AT THIS TIME. ON LOW INTERMITTENT SUCTION IN PLACED. IV ON RIGHT FA, SIZE 20 INTACT & PATENT WITH D5NS RUNNING AT 75ML/HR. PATIENT CURRENTLY NPO. SAFETY MEASURES IN PLACE. BED LOCKED, ALARM ON, SIDE RAILS X2, CALL LIGHT WITHIN REACH. WILL CONTINUE TO MONITOR.
[2020-04-14 08:00] VITALS: BP 158/76
[2020-04-14] MEDS: PANTOPRAZOLE 40 MG VIAL IV SCH (08:22)
[2020-04-14] MEDS: IV D5/ 0.9% NACL 1,000 ML IV PRN ×2 (08:22→22:47)
[2020-04-14] MEDS: KETOCONAZOLE 2% CREAM 15 GM TUBE TP SCH (09:25)
[2020-04-14 16:00] VITALS: BP 168/73
--- NOTE | 2020-04-14 17:29 | NUR ---
MS/RN NOTES DR.HOOMAN GRIFFIN IS AWARE TO RECONCILE THE HOME MEDICATION FOR CONTINO, EDWARD. NOTED AND CARRIED OUT.
--- NOTE | 2020-04-14 17:35 | NUR ---
MS/RN NOTES CONTINUE HOME MEDICATIONS PER DR ZEUS GRIFFIN.
[2020-04-14] MEDS: CARVEDILOL 12.5 MG TABLET PO SCH (18:00)
[2020-04-14] MEDS: AMLODIPINE BESYLATE 5 MG TABLET PO SCH (18:00)
[2020-04-14] MEDS ORDERED: MISCELLANEOUS MED 1 EA EA PO PRN ×2 (18:00)
[2020-04-14] MEDS ORDERED: ACETAMINOPHEN 325 MG TABLET PO PRN (18:00)
[2020-04-14] MEDS ORDERED: NA PHOS,M-B/NA PHOS,DI-BA 1 EA ENEMA RC PRN (18:00)
[2020-04-14] MEDS ORDERED: MAGNESIUM HYDROXIDE 30 ML UDC PO PRN (18:00)
[2020-04-14] MEDS ORDERED: MAG HYDROX/AL HYDROX/SIMETH 30 ML UDC PO PRN (18:00)
[2020-04-14] MEDS ORDERED: BISACODYL SUPP (10 MG) 10 MG/SUPP.RECT SUPP.RECT RC PRN (18:00)
--- NOTE | 2020-04-14 18:41 | NUR ---
MS/RN NOTES DR MABEL STILL ORDER LAPAROSCOPIC VERSUS OPEN ABDOMINAL EXPLORATION, POSSIBLE BOWEL RESECTION, POSSIBLE OSTOMY, POSSIBLE ANY INDICATED PROCEDURE. NOTED AND CARRIED OUT. CONSENT WAS SIGN BY THE PATIENT AND ATTACH TO CHART.
[2020-04-14] MEDS ORDERED: ANESTHESIA TRAY IN PYXIS 1 EA TRAY MC ONE (18:49)
[2020-04-14] MEDS ORDERED: BUPIVACAINE MPF 0.5% W/EPI INJ 30 ML VIAL ONE (18:49)
[2020-04-14] MEDS ORDERED: LIDOCAINE HCL/MPF 1% 30 ML VIAL IJ ONE (18:49)
[2020-04-14] MEDS ORDERED: HYDROMORPHONE HCL 2 MG TABLET PO PRN (19:00)
[2020-04-14] MEDS ORDERED: FENTANYL PF 100MCG/2ML AMPUL ONE ×4 (19:06→19:09)
[2020-04-14] MEDS ORDERED: HYDROMORPHONE INJ 2 MG/ML DISP.SYRIN ONE (19:09)
[2020-04-14] MEDS ORDERED: ROCURONIUM BROMIDE 50 MG/5 ML ONE (19:10)
[2020-04-14] MEDS ORDERED: FAMOTIDINE/PF INJ 20 MG/2 ML VIAL IV ONE (19:10)
--- NOTE | 2020-04-14 19:33 | NUR ---
MS/RN NOTES PATIENT CONTROL SYSTEMS DEVELOPER BY OR NURSE FOR SURGERY. GIVE REPORT TO FRANCHESKA FOR KIMBER.
--- NOTE | 2020-04-14 19:34 | NUR ---
MS RN PM OPENING NOTE. REPORT RECIEVED FROM SALLY VAZ. PATIENT PICKED UP FOR SURGERY AT 1905. PATIENT TO HAVE ABD SURGERY. WILL AWAIT HIS RETURN TO CONTINUE CARE.
[2020-04-14] MEDS: hydrALAZINE HCL 10 MG TABLET PO SCH (20:25)
[2020-04-14 20:32] LABS: CARBON DIOXIDE 22 mmol/L (21-32); CHLORIDE 109 mmol/L (98-107); CREATININE 7.2 mg/dL (0.6-1.3); GLUCOSE 145 mg/dL (74-106); POTASSIUM 3.8 mmol/L (3.5-5.1); SODIUM SERUM 145 mmol/L (136-145); UREA NITROGEN, BLOOD 63 mg/dL (7-18)
--- NOTE | 2020-04-14 21:50 | NUR ---
Received patient s/p Exploratory laparoscopic exploration and lysis of adhesion to release the obstruction band, laparoscopic liver wedge resection biopsy. Patient is intubated with ETT 06/09 at the lip and on mechanical vent with setting at ac 14, tv 500, fio2 40, peep 5. Patient tolerating vent setting well. Patient has ngt in left nare on low intermittent suctioning. Patient has left upper arm fistula with positive bruit and thrill noted. Patient has right chest wall HD catheter that is clean dry and intact. Patient has left foot 20g that is clean dry intact and patent with NS bolus from post op. bed in low lock position with rails up x 2. call light within reach and all safety measures ensured and carried out. will continue to monitor patient.
--- NOTE | 2020-04-14 21:50 | NUR ---
pt received from or ventilated via ambu bag. pt placed on vent per md verbal order settings ac 14 500 40% +5 pt responsive to pain at this time. ett 8.0@23cm. suctioned a small amount of thin white secretions. Addendum: 04/15/20 at 0400 by VICTOR M BRIGGS RT Amended: Links added.
[2020-04-14 22:00] VITALS: BP 163/73
[2020-04-14] MEDS ORDERED: PROPOFOL 100 ML IV PRN (22:00)
[2020-04-14] MEDS: TAMSULOSIN 0.4 MG CAP.SR.24H PO SCH (22:00)
[2020-04-14] MEDS: DONEPEZIL 5 MG TABLET PO SCH (22:00)
[2020-04-14] MEDS: ATORVASTATIN 40 MG TABLET PO SCH (22:00)
[2020-04-14] MEDS: SENNOSIDES 8.6 MG TABLET PO SCH (22:00)
--- NOTE | 2020-04-14 22:30 | NUR ---
TRANSFER TO ICU; REPORT GIVEN TO EUGENIO VAZ IN ICU. POST OPERATIVELY PATIENT TRANSFERRED TO ICU. PATIENT ALREADY IN ICU WITH NEW ORDERS. REPORT GIVEN TO EUGENIO AT BEDSIDE AND PATIENT BELONGINGS AND MEDICATIONS TAKEN TO ICU AND GIVEN TO EUGENIO RN. PT DOES NOT HAVE ANY PERSONAL ITEMS AT THE BEDSIDE LOCATED IN ROOM.
[2020-04-14 22:55] LABS: BASOPHILS % (AUTO) 0.5 % (0.0-2.0); EOSINOPHILS % (AUTO) 1.5 % (0.0-6.0); HEMATOCRIT 40 % (39-51); HEMOGLOBIN 12.8 g/dL (13.5-17.5); LYMPHOCYTES % (AUTO) 13.3 % (20.0-44.0); MEAN CORPUSCULAR HGB CONC 32 g/dl (31.0-36.0); MEAN CORPUSCULAR VOLUME 96 fL (80-96); MONOCYTES # (AUTO) 0.9 /CMM (0.1-1.30); MONOCYTES % (AUTO) 12.4 % (2.0-12.0); NEUTROPHILS # (AUTO) 5.4 /CMM (1.8-8.9); NEUTROPHILS % (AUTO) 72.3 % (43.0-81.0); PLATELET COUNT (AUTO) 178 /CMM (150-450); RED BLOOD CELL COUNT(AUTO) 4.16 MIL/uL (4.5-6.0); WHITE BLOOD COUNT (AUTO) 7.4 K/uL (4.3-11.0)
[2020-04-14 23:00] VITALS: BP 133/62
--- NOTE | 2020-04-14 23:30 | NUR ---
Notified Dr. Salcido that patient is currently in ICU due to inability to extubate patient s/p surgery. Received orders to have Dr. Yang manage vent setting. Read back orders performed and carried out.
[2020-04-14 23:51] LABS: BAND % (MANUAL) 10 % (0.0-5.0); EOSINOPHILS % (MANUAL) 2 % (0-4); LYMPHOCYTES % (MANUAL) 18 % (16-48); METAMYELOCYTES % 1 % (0-0); MONOCYTES % (MANUAL) 10 % (0-11.0); NEUTROPHILS % (MANUAL) 59 (42-76)
[2020-04-15] VITALS (26 sets, daily range): BP systolic 103–168; BP diastolic 39–87
[2020-04-15] MEDS: BLOOD SUGAR DIAGNOSTIC 1 EACH STRIP IN SCH ×4 (00:15→18:23)
[2020-04-15 04:33] LABS: BASOPHILS % (AUTO) 0.3 % (0.0-2.0); EOSINOPHILS % (AUTO) 0.8 % (0.0-6.0); HEMATOCRIT 36 % (39-51); HEMOGLOBIN 11.6 g/dL (13.5-17.5); LYMPHOCYTES # (AUTO) 1.1 /CMM (0.8-4.8); LYMPHOCYTES % (AUTO) 14.4 % (20.0-44.0); MEAN CORPUSCULAR HGB CONC 33 g/dl (31.0-36.0); MEAN CORPUSCULAR VOLUME 97 fL (80-96); MONOCYTES # (AUTO) 1.1 /CMM (0.1-1.30); MONOCYTES % (AUTO) 13.3 % (2.0-12.0); NEUTROPHILS # (AUTO) 5.6 /CMM (1.8-8.9); NEUTROPHILS % (AUTO) 71.2 % (43.0-81.0); PLATELET COUNT (AUTO) 178 /CMM (150-450); RED BLOOD CELL COUNT(AUTO) 3.69 MIL/uL (4.5-6.0); WHITE BLOOD COUNT (AUTO) 7.9 K/uL (4.3-11.0)
[2020-04-15 05:00] LABS: CALCIUM, SERUM 8.1 mg/dL (8.5-10.1); CARBON DIOXIDE 21 mmol/L (21-32); CHLORIDE 111 mmol/L (98-107); CREATININE 7.1 mg/dL (0.6-1.3); GLUCOSE 186 mg/dL (74-106); POTASSIUM 3.7 mmol/L (3.5-5.1); SODIUM SERUM 145 mmol/L (136-145); UREA NITROGEN, BLOOD 64 mg/dL (7-18)
[2020-04-15 05:25] LABS: APPEARANCE,URINE CLOUDY (CLEAR); BILIRUBIN,URINE NEGATIVE (NEGATIVE); BLOOD, URINE LARGE Ery/uL (NEGATIVE); COLOR,URINE YELLOW (YELLOW); KETONES,URINE NEGATIVE (NEGATIVE); LEUKOCYTE ESTERASE ,URINE LARGE (NEGATIVE); NITRITE, URINE NEGATIVE (NEGATIVE); PROTEIN,URINE >=300 mg/dl (NEGATIVE); UGLUCOSE NEGATIVE (NEGATIVE); UROBILINOGEN,URINE 0.2 EU/dL (0.2)
[2020-04-15 05:28] LABS: BACTERIA,URINE Many /HPF (None Seen); RBC,URINE 21-50 /HPF (0-2); SQUAMOUS EPITHELIAL CELL,UR Few /HPF (None Seen); WBC,URINE TOO NUMEROUS TO COUN /HPF (0-3)
[2020-04-15] MEDS: INSULIN REGULAR, HUMAN 100 UNIT/ML 3 ML VIAL SQ PRN (05:47)
[2020-04-15] MEDS ORDERED: PANTOPRAZOLE 40 MG TABLET.DR PO SCH (07:30)
[2020-04-15] MEDS: SEVELAMER CARBONATE 800 MG TABLET PO SCH ×3 (08:00→18:22)
--- NOTE | 2020-04-15 08:00 | NUR ---
curriculum specialist received pt in bed sedated on propofol intubated on vent settings noted, pt has folley oliguric iv access patent, sedation vacation done pt woke up follows commands and held propofol p/ curriculum specialist for possibe extubation, no distress noted dc restraints as pt follows commands alert oriented x2, safety measures taken call light w/ in reach will continue to monitor.
[2020-04-15] MEDS: VIT B CMPLX 3/FA/VIT C/BIOTIN 1 TAB TABLET PO SCH (08:54)
[2020-04-15] MEDS: ISOSORBIDE DINITRATE (20MG) 20 MG TABLET PO SCH ×3 (08:54→18:22)
[2020-04-15] MEDS: FUROSEMIDE 20 MG TABLET PO SCH ×2 (08:54→18:22)
[2020-04-15] MEDS: DOCUSATE SODIUM 100 MG CAPSULE PO SCH ×2 (08:54→18:21)
[2020-04-15] MEDS: hydrALAZINE HCL 10 MG TABLET PO SCH ×4 (08:54→21:23)
[2020-04-15] MEDS: CARVEDILOL 12.5 MG TABLET PO SCH ×2 (08:54→18:22)
[2020-04-15] MEDS: NEPRO VAN 237 ML CAN PO SCH ×2 (08:55→18:23)
[2020-04-15] MEDS: KETOCONAZOLE 2% CREAM 15 GM TUBE TP SCH (08:55)
[2020-04-15] MEDS: LIDOCAINE 5% (PATCH) 1 EA PATCH TP SCH (08:55)
[2020-04-15] MEDS: CLOPIDOGREL BISULFATE 75 MG TABLET PO SCH (08:55)
[2020-04-15] MEDS: PROSTAT (PYXIS) 30 ML UDC PO SCH ×2 (08:55→18:23)
[2020-04-15] MEDS: AMLODIPINE BESYLATE 5 MG TABLET PO SCH ×2 (08:55→18:23)
[2020-04-15] MEDS: PANTOPRAZOLE 40 MG VIAL IV SCH (09:04)
[2020-04-15] MEDS ORDERED: TPN/PPN PER PHARMACY XX PRN (10:30)
[2020-04-15 10:44] LABS: ALBUMIN 2.6 g/dL (3.4-5.0); PREALBUMIN 14.8 MG/DL (18.0-35.7)
[2020-04-15] MEDS ORDERED: PIPERACILLIN /TAZOBACTAM 2.25 G in IV D5W 50 ML IV SCH (11:00)
--- NOTE | 2020-04-15 11:30 | NUR ---
silviculture professor cpap orders recived and followed
--- NOTE | 2020-04-15 11:45 | NUR ---
PATIENT BS WAS 166 AND REFUSED COVERAGE DESPITE EXPLAINING THE RISKS AND BENEFIT. Addendum: 04/16/20 at 0251 by ERIN JESUS RN TIME CORRECTED TO 7172
[2020-04-15] MEDS ORDERED: LEVOFLOXACIN 500 MG /D5W 100ML 500 MG in PREMIX 1 EA IV ONE (12:00)
[2020-04-15 12:15] LABS: HEMOGLOBIN 11.9 g/dL (13.5-17.5)
--- NOTE | 2020-04-15 12:15 | NUR ---
agricultural engineer extubation orders received and pt is extubated no distress noted vs stable will continue to monitor. orders received by Camilo Valdez to dc ng tube and place pt on clear liuquid diet orders followed
[2020-04-15 12:22] LABS: ABG OXYGEN SATURATION 98.1 % (92.0-98.5); ABG PCO2 33.6 mmHg (35.0-45.0); ABG PH 7.304 (7.350-7.450); ABG PO2 187.6 mmHg (75.0-100.0); COHb 0.8 % (0.5-1.5); MetHb 0.3 % (0.0-1.5); SITE, ABG Right Radial; VENT MODE, BG CPAP 12 +5 40%
--- NOTE | 2020-04-15 12:35 | NUR ---
RT PER DR RIVERA PATIENT WAS WEANED AND EXTUBATED AND PLACED ON SUPPLEMENTAL O2 BALDOMERO WELL.
[2020-04-15] MEDS ORDERED: FEE TPN 1 MIN EA MC ONE (15:24)
[2020-04-15] MEDS ORDERED: IV D5/ 0.9% NACL 1,000 ML IV PRN (17:00)
[2020-04-15] MEDS ORDERED: TPN BAG #1 IV PRN ×4 (17:00)
--- NOTE | 2020-04-15 18:28 | NUR ---
pt bs 139 pt refused coverage
--- NOTE | 2020-04-15 19:15 | NUR ---
ICU/RN RECEIVED PATIENT IN BED WITH NO SIGN OF ANY DISTRESS. PATIENT IS ON ROOM AIR WITH NO COMPLAINT OF SOB SATURATING AT 94%. PATIENT IS NSR WITH HR AT 87 ON BEDSIDE MONITOR. PATIENT HAS JOSE MIDLINE AND RT HAND IV WITH BOTH ON S/L. FC DRAINING VIA GRAVITY WITH YELLOW CLOUDY OUTPUT NOTICED. ALL SAFETY PRECAUTIONS APPLIED. CALL LIGHT WITHIN IN REACH. WILL CONTINUE TO MONITOR.
[2020-04-15] MEDS: DONEPEZIL 5 MG TABLET PO SCH (21:22)
[2020-04-15] MEDS: TAMSULOSIN 0.4 MG CAP.SR.24H PO SCH (21:23)
[2020-04-15] MEDS: ATORVASTATIN 40 MG TABLET PO SCH (21:23)
[2020-04-15] MEDS: SENNOSIDES 8.6 MG TABLET PO SCH (21:24)
[2020-04-16] VITALS (22 sets, daily range): BP systolic 125–185; BP diastolic 48–81
[2020-04-16] MEDS: BLOOD SUGAR DIAGNOSTIC 1 EACH STRIP IN SCH ×4 (00:13→17:37)
[2020-04-16] MEDS: ONDANSETRON HCL/PF 4 MG/2 ML VIAL IVP PRN ×2 (04:07→08:05)
[2020-04-16 04:29] LABS: BASOPHILS % (AUTO) 0.3 % (0.0-2.0); EOSINOPHILS % (AUTO) 2.1 % (0.0-6.0); HEMATOCRIT 40 % (39-51); HEMOGLOBIN 12.5 g/dL (13.5-17.5); LYMPHOCYTES # (AUTO) 1.4 /CMM (0.8-4.8); LYMPHOCYTES % (AUTO) 16.5 % (20.0-44.0); MEAN CORPUSCULAR HGB CONC 32 g/dl (31.0-36.0); MEAN CORPUSCULAR VOLUME 96 fL (80-96); MONOCYTES # (AUTO) 1.3 /CMM (0.1-1.30); MONOCYTES % (AUTO) 15.2 % (2.0-12.0); NEUTROPHILS # (AUTO) 5.7 /CMM (1.8-8.9); NEUTROPHILS % (AUTO) 65.9 % (43.0-81.0); PLATELET COUNT (AUTO) 163 /CMM (150-450); RED BLOOD CELL COUNT(AUTO) 4.13 MIL/uL (4.5-6.0); WHITE BLOOD COUNT (AUTO) 8.6 K/uL (4.3-11.0)
[2020-04-16 04:45] LABS: CALCIUM, SERUM 8.7 mg/dL (8.5-10.1); CARBON DIOXIDE 25 mmol/L (21-32); CHLORIDE 109 mmol/L (98-107); CREATININE 5.6 mg/dL (0.6-1.3); GLUCOSE 171 mg/dL (74-106); PHOSPHORUS 2.9 mg/dL (2.5-4.9); POTASSIUM 3.5 mmol/L (3.5-5.1); SODIUM SERUM 145 mmol/L (136-145); UREA NITROGEN, BLOOD 43 mg/dL (7-18)
[2020-04-16 04:50] LABS: CHOLESTEROL 94 mg/dL (<200); HDL CHOLESTEROL 32 mg/dL (40-60); LDL 38 mg/dL (0-99); TRIGLYCERIDES 96 mg/dL (30-150)
[2020-04-16 05:51] LABS: BAND % (MANUAL) 2 % (0.0-5.0); EOSINOPHILS % (MANUAL) 2 % (0-4); LYMPHOCYTES % (MANUAL) 10 % (16-48); MONOCYTES % (MANUAL) 17 % (0-11.0); NEUTROPHILS % (MANUAL) 69 (42-76)
--- NOTE | 2020-04-16 06:15 | NUR ---
PATIENT BS IS 153. PATIENT REFUSES COVERAGE.
--- NOTE | 2020-04-16 07:25 | NUR ---
ICU/RN PT IS IN THE BED ,AWAKE ,ALERT,[id number].V/S STABLE ,AFEBRILE .NO PAIN REPORTED AT THIS TIME..WAS EXTUBATED 04/15/20.ON ROOM AIR ,SAT 02-95%.HAS PROACTIVE COUGH.IV-HL.F/C DRAINING WITH YELLOW URINE.
--- NOTE | 2020-04-16 08:00 | NUR ---
ICU /RN PT C/O OF NAUSEA .ZOFRAN IV GIVEN ORDERED.CONTINUE MONITORING.LABS REVIEW.
[2020-04-16] MEDS: SEVELAMER CARBONATE 800 MG TABLET PO SCH ×3 (08:04→17:38)
[2020-04-16] MEDS: DOCUSATE SODIUM 100 MG CAPSULE PO SCH ×2 (08:29→16:37)
[2020-04-16] MEDS: AMLODIPINE BESYLATE 5 MG TABLET PO SCH ×2 (08:29→16:38)
[2020-04-16] MEDS: hydrALAZINE HCL 10 MG TABLET PO SCH ×4 (08:29→21:00)
[2020-04-16] MEDS: ISOSORBIDE DINITRATE (20MG) 20 MG TABLET PO SCH ×3 (08:29→16:38)
[2020-04-16] MEDS: CARVEDILOL 12.5 MG TABLET PO SCH ×2 (08:30→16:37)
[2020-04-16] MEDS: LIDOCAINE 5% (PATCH) 1 EA PATCH TP SCH (08:30)
[2020-04-16] MEDS: PANTOPRAZOLE 40 MG VIAL IV SCH (08:30)
[2020-04-16] MEDS: CLOPIDOGREL BISULFATE 75 MG TABLET PO SCH (08:30)
[2020-04-16] MEDS: FUROSEMIDE 20 MG TABLET PO SCH ×2 (08:30→16:38)
[2020-04-16] MEDS: VIT B CMPLX 3/FA/VIT C/BIOTIN 1 TAB TABLET PO SCH (08:30)
[2020-04-16] MEDS: PROSTAT (PYXIS) 30 ML UDC PO SCH (08:33)
[2020-04-16] MEDS: KETOCONAZOLE 2% CREAM 15 GM TUBE TP SCH (08:34)
[2020-04-16] MEDS: NEPRO VAN 237 ML CAN PO SCH (09:00)
[2020-04-16] MEDS ORDERED: CLONIDINE HCL 0.1MG/24H PTWK 1 EA PATCH TD SCH (12:00)
--- NOTE | 2020-04-16 12:10 | NUR ---
ICU/RN PT HAS NAUSEA VOMIT. BILE COLOR DISCHARGE..PT REFUSED TO TAKE PO MEDS.MD NOTIFIED.CLONIDINE PATCH ORDERED AND PLACED. CONTINUE MONITORING.
[2020-04-16] MEDS ORDERED: hydrALAZINE HCL IV 20 MG VIAL IV PRN (14:30)
--- NOTE | 2020-04-16 14:45 | NUR ---
ICU/RN PT VOMIT 600 ML GREEN-BROWN COLOR .MD NOTIFIED.NEW ORDERS RECEIVED.
[2020-04-16] MEDS: IV D5/ 0.9% NACL 1,000 ML IV PRN (15:10)
--- NOTE | 2020-04-16 19:15 | NUR ---
ICU/RN RECEIVED PATIENT IN BED. INITIALLY WITH NO SIGN OF ANY DISTRESS. PATIENT IN ON ROOM AIR NO SIGN OF ANY SOB AND NO COMPLAINTS FROM PATIENT. PATIENT IS A/OX4 [place] SPEAKER AND COOPERATIVE BUT ANGRY AT TIMES. SAYS "WHY DONT YOU GUYS JUST LET ME . PATIENT HAS BEEN EXPERIENCING N/V BUT SO FAR NO COMPLAINTS OF ANY N/V. DID ADVISE THAT HE HAS MEDICATION FOR IT IF NEEDED. PATIENT HAS NEW PICC LINE ON JOSE PATENT AND FLUSHING. NSR WITH 83 HR ON BEDSIDE MONITOR.FC DRAINING VIA GRAVITY WITH YELLOW CLOUDY OUTPUT ASSESSED. ALL SAFETY PRECAUTIONS APPLIED. CALL LIGHT IS WITHIN REACH. WILL CONTINUE TO MONITOR PATIENT THROUGHOUT SHIFT.
[2020-04-16] MEDS: DONEPEZIL 5 MG TABLET PO SCH (21:05)
[2020-04-16] MEDS: SENNOSIDES 8.6 MG TABLET PO SCH (21:05)
[2020-04-16] MEDS: TAMSULOSIN 0.4 MG CAP.SR.24H PO SCH (21:05)
[2020-04-16] MEDS: ATORVASTATIN 40 MG TABLET PO SCH (21:05)
[2020-04-17] VITALS (18 sets, daily range): BP systolic 115–150; BP diastolic 42–91
[2020-04-17] MEDS: BLOOD SUGAR DIAGNOSTIC 1 EACH STRIP IN SCH ×5 (00:18→23:41)
[2020-04-17] MEDS: ONDANSETRON HCL/PF 4 MG/2 ML VIAL IVP PRN ×2 (00:28→20:27)
--- NOTE | 2020-04-17 00:30 | NUR ---
PATIENT HAD AN EPISODE OF N/V, EMESIS A TOTAL OF 250CC. ADMINISTERED ZOFRAN AND WILL MONITOR
[2020-04-17 04:35] LABS: CALCIUM, SERUM 8.2 mg/dL (8.5-10.1); CARBON DIOXIDE 23 mmol/L (21-32); CHLORIDE 110 mmol/L (98-107); CREATININE 6.1 mg/dL (0.6-1.3); GLUCOSE 206 mg/dL (74-106); MAGNESIUM 1.8 mg/dL (1.8-2.4); PHOSPHORUS 3.2 mg/dL (2.5-4.9); POTASSIUM 3.5 mmol/L (3.5-5.1); SODIUM SERUM 143 mmol/L (136-145); UREA NITROGEN, BLOOD 52 mg/dL (7-18)
--- NOTE | 2020-04-17 05:30 | NUR ---
PATIENT HAD 2 WATERY BOWEL MOVEMENTS. SAMPLE WAS NOT COLLECTED FOR C-DIFF DUE TO PATIENT RECEIVING LAXATIVE ON 04/15. PER PROTOCOL NO SAMPLE NEEDS TO BE COLLECTED IF PATIENT HAD RECEIVED LAXATIVE WITHIN 48HRS. WILL ENDORSE TO MORNING SHIFT NURSE FOR F/U.
[2020-04-17] MEDS: IV D5/ 0.9% NACL 1,000 ML IV PRN ×2 (05:47→22:04)
[2020-04-17] MEDS: SEVELAMER CARBONATE 800 MG TABLET PO SCH ×3 (08:00→18:00)
[2020-04-17] MEDS: hydrALAZINE HCL 10 MG TABLET PO SCH ×4 (08:42→21:00)
[2020-04-17] MEDS: DOCUSATE SODIUM 100 MG CAPSULE PO SCH ×2 (08:42→17:00)
[2020-04-17] MEDS: CARVEDILOL 12.5 MG TABLET PO SCH ×2 (08:42→17:00)
[2020-04-17] MEDS: PANTOPRAZOLE 40 MG VIAL IV SCH (08:42)
[2020-04-17] MEDS: ISOSORBIDE DINITRATE (20MG) 20 MG TABLET PO SCH ×3 (08:42→17:00)
[2020-04-17] MEDS: FUROSEMIDE 20 MG TABLET PO SCH ×2 (08:43→17:00)
[2020-04-17] MEDS: AMLODIPINE BESYLATE 5 MG TABLET PO SCH ×2 (08:43→17:00)
[2020-04-17] MEDS: CLOPIDOGREL BISULFATE 75 MG TABLET PO SCH (08:43)
[2020-04-17] MEDS: VIT B CMPLX 3/FA/VIT C/BIOTIN 1 TAB TABLET PO SCH (08:43)
[2020-04-17] MEDS: LIDOCAINE 5% (PATCH) 1 EA PATCH TP SCH (08:44)
[2020-04-17] MEDS: KETOCONAZOLE 2% CREAM 15 GM TUBE TP SCH (08:44)
--- NOTE | 2020-04-17 08:45 | NUR ---
Patient is currently NPO status due to nausea/vomiting. When asked if he wants to take his morning PO medications, he said "no". Education on potential risks/benefits provided
[2020-04-17] MEDS ORDERED: LEVOFLOXACIN 250 MG /D5W 50 ML 250 MG in PREMIX 1 EA IV SCH (12:00)
--- NOTE | 2020-04-17 13:38 | NUR ---
Order in place to advance diet as tolerated. Patient denied feeling nauseous. Patient has been sipping water throughout day + ate lunch without any nausea/vomiting. However, he is refusing his medication "They taste nasty and make me throw up every time. I don't want it" . Education provided
--- NOTE | 2020-04-17 15:16 | NUR ---
Patient transferred to med surg - endorsed f/u w/ to Rodriguez RN regarding IVF change + DVT prophylaxis to SQ INJ. Patient is verbal, a/ox4, on room air, SPO2 95%, afebrile. x1 small liquid BM this shift. Denies N/V. Able to tolerate solid lunch Patient belonging (black pillow) sent with patient. Patient isolated d/t ecoli ESBL, suction set up, HOB elevated, call light within reach
[2020-04-17] MEDS: INSULIN REGULAR, HUMAN 100 UNIT/ML 3 ML VIAL SQ PRN (17:45)
--- NOTE | 2020-04-17 19:45 | NUR ---
MS RN NOTES PATIENT IN BED, AWAKE, ALERT AND ORIENTED X 4. BREATHING EVEN AND UNLABORED ON ROOM AIR. SHOWS NO SIGNS OF ACUTE RESPIRATORY DISTRESS. NO ACUTE PAIN. FC CLEAN DRY AND INTACT. SHOWS NO SIGNS OF INFILTRATION. HAD HD 04/17 WITH 1L OUT. PT HAS R IJ PERMCATH INTACT. AND JOSE PICC LINE ITS CLEAN DRY AND INTACT RUNNING D5NS AT 75ML/HR. SHOWS NO SIGNS OF INFILTRATION, NO REDNESS. WITH GLADIS FISTULA INTACT. SAFETY PRECAUTIONS IN PLACE. BED IN LOWEST POSITION, LOCKED, AND CALL LIGHT KEPT WITHIN REACH. WILL CONTINUE TO MONITOR.
[2020-04-17] MEDS: MEROPENEM 500 MG in IV NS 0.9% 50 ML IV SCH (20:09)
[2020-04-17] MEDS: ATORVASTATIN 40 MG TABLET PO SCH (21:35)
[2020-04-17] MEDS: DONEPEZIL 5 MG TABLET PO SCH (21:35)
[2020-04-17] MEDS: TAMSULOSIN 0.4 MG CAP.SR.24H PO SCH (21:35)
[2020-04-17] MEDS: SENNOSIDES 8.6 MG TABLET PO SCH (21:35)
--- NOTE | 2020-04-17 22:00 | NUR ---
MS RN NOTES PATIENT REFUSED ALL PO MEDS. STILL FEELS NAUSEOUS AND WILL THROW UP THE MEDICATIONS. WILL CONTINUE TO MONITOR.
--- NOTE | 2020-04-17 23:30 | NUR ---
MS RN NOTES PATIENT HAD TWO EPISODES OF EMESIS. TOOK AWAY SNACK AND DRINKS. WILL CONTINUE TO MONITOR.
[2020-04-18] MEDS: BLOOD SUGAR DIAGNOSTIC 1 EACH STRIP IN SCH ×3 (05:41→17:20)
--- NOTE | 2020-04-18 06:46 | NUR ---
MS RN NOTES PATIENT IN BED, AWAKE, ALERT AND ORIENTED X 4. BREATHING EVEN AND UNLABORED ON ROOM AIR. SHOWS NO SIGNS OF ACUTE RESPIRATORY DISTRESS. NO ACUTE PAIN. FC FLOWING YELLOW CLOUDY URINE, ITS CLEAN DRY AND INTACT. SHOWS NO SIGNS OF INFILTRATION. PT HAS R IJ PERMCATH INTACT. AND JOSE PICC LINE ITS CLEAN DRY AND INTACT RUNNING D5NS AT 75ML/HR. SHOWS NO SIGNS OF INFILTRATION, NO REDNESS. WITH GLADIS FISTULA INTACT. ALL IV MEDS GIVEN, PT REFUSED PO MEDS. SAFETY PRECAUTIONS IN PLACE. BED IN LOWEST POSITION, LOCKED, AND CALL LIGHT KEPT WITHIN REACH. WILL ENDORSE TO ONCOMING NURSE.
[2020-04-18 07:05] LABS: CALCIUM, SERUM 7.8 mg/dL (8.5-10.1); CARBON DIOXIDE 21 mmol/L (21-32); CHLORIDE 111 mmol/L (98-107); GLUCOSE 201 mg/dL (74-106); MAGNESIUM 1.7 mg/dL (1.8-2.4); PHOSPHORUS 2.3 mg/dL (2.5-4.9); POTASSIUM 3.3 mmol/L (3.5-5.1); SODIUM SERUM 144 mmol/L (136-145); UREA NITROGEN, BLOOD 37 mg/dL (7-18)
--- NOTE | 2020-04-18 07:30 | NUR ---
MS/RN NOTES Patient in bed, A&O x 4. No complaints of pain/discomfort at this time. Denies nausea and vomiting. Breathing even and non-labored on RA. No cardiac or respiratory distress at this time. JOSE PICC #18 noted, patent and intact, infusing D5/NS @ 75 ml/hr. R IJ perma cath noted. GLADIS fistula noted, bruit and thrill present. Salomon catheter in place, draining clear yellow urine well. Fall precautions maintained. Will continue to monitor patient.
[2020-04-18 08:00] VITALS: BP 129/60
[2020-04-18] MEDS: SEVELAMER CARBONATE 800 MG TABLET PO SCH ×3 (08:00→17:11)
[2020-04-18] MEDS: DOCUSATE SODIUM 100 MG CAPSULE PO SCH ×2 (09:00→17:11)
[2020-04-18] MEDS: hydrALAZINE HCL 10 MG TABLET PO SCH ×4 (09:00→21:29)
[2020-04-18] MEDS: CLOPIDOGREL BISULFATE 75 MG TABLET PO SCH (09:00)
[2020-04-18] MEDS: AMLODIPINE BESYLATE 5 MG TABLET PO SCH ×2 (09:00→17:19)
[2020-04-18] MEDS: KETOCONAZOLE 2% CREAM 15 GM TUBE TP SCH (09:00)
[2020-04-18] MEDS: CARVEDILOL 12.5 MG TABLET PO SCH ×2 (09:00→17:12)
[2020-04-18] MEDS: VIT B CMPLX 3/FA/VIT C/BIOTIN 1 TAB TABLET PO SCH (09:00)
[2020-04-18] MEDS: ISOSORBIDE DINITRATE (20MG) 20 MG TABLET PO SCH ×3 (09:00→17:11)
[2020-04-18] MEDS: FUROSEMIDE 20 MG TABLET PO SCH ×2 (09:00→17:19)
[2020-04-18] MEDS: LIDOCAINE 5% (PATCH) 1 EA PATCH TP SCH (09:00)
[2020-04-18] MEDS: PANTOPRAZOLE 40 MG VIAL IV SCH (09:23)
[2020-04-18] MEDS: INSULIN REGULAR, HUMAN 100 UNIT/ML 3 ML VIAL SQ PRN ×2 (11:57→17:26)
--- NOTE | 2020-04-18 12:17 | NUR ---
MS RN NOTES RECEIVED ORDER FROM DR. ESTRELLA FOR POTASSIUM CHLORIDE 20 MEQ X1 BAG AND MAGNESIUM 1G X1 BAG,, CARRIED OUT
--- NOTE | 2020-04-18 12:21 | NUR ---
MS/RN NOTES Notified Dr. Jasso of Potassium 3.3, Magnesium 1.7, and Phos 2.3. Ordered Potassium Cl 20 MEQ and Magnesium 1gm. Carried out orders.
[2020-04-18] MEDS ORDERED: POTASSIUM CL. PREMIX PERIPHER. 50 ML IV SCH ×2 (12:30→14:00)
[2020-04-18] MEDS ORDERED: Magnesium 1GM/D5W 100ML PREMIX PIGGYBACK IV ONE (12:30)
[2020-04-18] MEDS: MGSO4/D5W 100 ML IV SCH ×3 (13:21→13:54)
--- NOTE | 2020-04-18 13:52 | NUR ---
MS/RN NOTES Infused 1 gram of Magnesium (1 bag) only to patient, as ordered by Dr. Jasso. Duplicate orders were noted on Emar.
[2020-04-18] MEDS ORDERED: POTASSIUM CHLORIDE 10 MEQ/50 ML PREMIXED IVPB FOR PERIPHERAL LINE IV ONE (14:00)
[2020-04-18 16:00] VITALS: BP 129/60
--- NOTE | 2020-04-18 19:00 | NUR ---
MS/RN CLOSING NOTES Patient resting in bed, A&O x 4. Patient has no complaints of n/v throughout the shift. Ate about 25% of every meal. Took PM PO meds with pudding. No complaints of pain and discomfort at this time. Breathing even and non-labored on RA. No cardiac or respiratory distress at this time. JOSE PICC #18 noted, patent and intact, infusing well. R IJ perma cath noted. GLADIS fistula noted, bruit and thrill present. Salomon catheter in place, draining clear yellow urine well. Fall precautions maintained. Hemodialysis scheduled tomorrow morning. Will endorse to shift superintendent caustic cresylate nurse.
[2020-04-18 19:30] VITALS: BP 158/42
--- NOTE | 2020-04-18 19:37 | NUR ---
MS RN NOTES PATIENT IN BED, AWAKE, ALERT AND ORIENTED X 4. BREATHING EVEN AND UNLABORED ON ROOM AIR. SHOWS NO SIGNS OF ACUTE RESPIRATORY DISTRESS. NO ACUTE PAIN. FC FLOWING YELLOW CLOUDY URINE, ITS CLEAN DRY AND INTACT. SHOWS NO SIGNS OF INFILTRATION. PT HAS R IJ PERMCATH INTACT. AND JOSE PICC LINE ITS CLEAN DRY AND INTACT SHOWS NO SIGNS OF INFILTRATION, NO REDNESS. WITH GLADIS FISTULA INTACT. SAFETY PRECAUTIONS IN PLACE. BED IN LOWEST POSITION, LOCKED, AND CALL LIGHT KEPT WITHIN REACH. WILL CONTINUE TO MONITOR.
[2020-04-18 20:00] VITALS: BP 158/42
[2020-04-18] MEDS: SENNOSIDES 8.6 MG TABLET PO SCH (21:29)
[2020-04-18] MEDS: TAMSULOSIN 0.4 MG CAP.SR.24H PO SCH (21:29)
[2020-04-18] MEDS: ATORVASTATIN 40 MG TABLET PO SCH (21:29)
[2020-04-18] MEDS: DONEPEZIL 5 MG TABLET PO SCH (21:29)
[2020-04-18] MEDS: MEROPENEM 500 MG in IV NS 0.9% 50 ML IV SCH (21:34)
[2020-04-19] MEDS: BLOOD SUGAR DIAGNOSTIC 1 EACH STRIP IN SCH ×4 (00:50→18:00)
--- NOTE | 2020-04-19 06:33 | NUR ---
MS RN NOTES PATIENT IN BED, ASLEEP, ALERT AND ORIENTED X 4. BREATHING EVEN AND UNLABORED ON ROOM AIR. SHOWS NO SIGNS OF ACUTE RESPIRATORY DISTRESS. NO ACUTE PAIN. FC FLOWING YELLOW CLOUDY URINE, ITS CLEAN DRY AND INTACT. PT HAS R IJ PERMCATH INTACT. AND JOSE PICC LINE ITS CLEAN DRY AND INTACT SHOWS NO SIGNS OF INFILTRATION, NO REDNESS. WITH GLADIS FISTULA INTACT. ALL DUE MEDICATIONS GIVEN. SAFETY PRECAUTIONS IN PLACE. BED IN LOWEST POSITION, LOCKED, AND CALL LIGHT KEPT WITHIN REACH. WILL ENDORSE TO ONCOMING NURSE.
[2020-04-19 07:19] LABS: CALCIUM, SERUM 7.5 mg/dL (8.5-10.1); CARBON DIOXIDE 21 mmol/L (21-32); CHLORIDE 108 mmol/L (98-107); CREATININE 5.6 mg/dL (0.6-1.3); GLUCOSE 150 mg/dL (74-106); MAGNESIUM 1.8 mg/dL (1.8-2.4); PHOSPHORUS 2.6 mg/dL (2.5-4.9); POTASSIUM 3.5 mmol/L (3.5-5.1); SODIUM SERUM 140 mmol/L (136-145); UREA NITROGEN, BLOOD 43 mg/dL (7-18)
--- NOTE | 2020-04-19 07:39 | NUR ---
MS/RN OPENING NOTES RECEIVED PATIENT IN BED AWAKE AND WATCHING TV. ALERT AND ORIENTED X 4. BREATHING EVEN AND UNLABORED ON ROOM AIR. SHOWS NO SIGNS OF ACUTE RESPIRATORY DISTRESS. NO COMPLAINED OF ACUTE PAIN. FC FLOWING YELLOW CLOUDY URINE, ITS CLEAN DRY AND INTACT. PATIENT HAS R IJ PERMCATH CLEAN AND INTACT. AND JOSE PICC LINE ITS CLEAN DRY AND INTACT SHOWS NO SIGNS OF INFILTRATION, NO REDNESS. WITH GLADIS FISTULA INTACT. SAFETY PRECAUTIONS IN PLACE. BED IN LOWEST POSITION, LOCKED, AND CALL LIGHT KEPT WITHIN REACH. WILL CONTINUE TO MONITOR.
[2020-04-19 08:00] VITALS: BP 117/50
[2020-04-19] MEDS: SEVELAMER CARBONATE 800 MG TABLET PO SCH ×3 (08:00→18:00)
[2020-04-19] MEDS: LIDOCAINE 5% (PATCH) 1 EA PATCH TP SCH (08:35)
[2020-04-19] MEDS: PANTOPRAZOLE 40 MG VIAL IV SCH (08:35)
[2020-04-19] MEDS: hydrALAZINE HCL 10 MG TABLET PO SCH ×4 (09:00→21:00)
[2020-04-19] MEDS: CLOPIDOGREL BISULFATE 75 MG TABLET PO SCH (09:00)
[2020-04-19] MEDS: VIT B CMPLX 3/FA/VIT C/BIOTIN 1 TAB TABLET PO SCH (09:00)
[2020-04-19] MEDS: AMLODIPINE BESYLATE 5 MG TABLET PO SCH ×2 (09:00→16:43)
[2020-04-19] MEDS: DOCUSATE SODIUM 100 MG CAPSULE PO SCH ×2 (09:00→16:42)
[2020-04-19] MEDS: CARVEDILOL 12.5 MG TABLET PO SCH ×2 (09:00→16:42)
[2020-04-19] MEDS: ISOSORBIDE DINITRATE (20MG) 20 MG TABLET PO SCH ×3 (09:00→16:42)
[2020-04-19] MEDS: FUROSEMIDE 20 MG TABLET PO SCH ×2 (09:00→16:42)
[2020-04-19] MEDS: KETOCONAZOLE 2% CREAM 15 GM TUBE TP SCH (09:18)
--- NOTE | 2020-04-19 09:18 | NUR ---
MS/RN NOTES PATIENT REFUSED ORAL MORNING MEDICATION, AND BLOOD PRESSURE MEDICATION IS WITH HELD DUE TO BP 117/50 HR 62. EXPLAINED THE RISK AND BENEFITS, PATIENT STILL REFUSING TO TAKE IT, PER PATIENT HE WILL VOMIT. WILL CONTINUE TO MONITOR.
[2020-04-19] MEDS: INSULIN REGULAR, HUMAN 100 UNIT/ML 3 ML VIAL SQ PRN (12:38)
--- NOTE | 2020-04-19 12:39 | NUR ---
MS/RN NOTES BS 144MG/DL PATIENT REFUSED FOR INSULIN 2 UNIT SQ. WILL CONTINUE TO MONITOR.
--- NOTE | 2020-04-19 13:50 | NUR ---
MS/RN NOTES PATIENT REFUSED TO TAKE RENAGEL/RENVELA 3200MG 4 TAB PO EXPLAINED THE RISK AND BENEFITS. PATIENT STILL REFUSED. BLOOD PRESSURE MEDICATION IS WITH HELD FOR BP 108/59 HR 68. WILL CONTINUE TO MONITOR.
--- NOTE | 2020-04-19 15:08 | NUR ---
MS/RN NOTES PATIENT HAD A BIG YELOOW SOFT BOWEL MOVEMENT AT 1500. WILL CONTINUE TO MONITOR.
[2020-04-19 16:00] VITALS: BP 130/40
--- NOTE | 2020-04-19 16:43 | NUR ---
MS/RN NOTES PATIENT REFUSED FOR 1500 MEDICATION. BP MEDS IS WITH HELD DUE TO BP 130/40 HR 63. EXPLAINED THE RISK AND BENEFITS PATIENT IS STILL REFUSING. WILL CONTINUE TO MONITOR.
--- NOTE | 2020-04-19 19:30 | NUR ---
MS/RN PM OPENING NOTES BEDSIDE REPORT RECIEVED FROM JERMAIN VAZ. PATIENT RECIEVING HD AT THIS TIME. IN BED AWAKE AND WATCHING TV. ALERT AND ORIENTED X 4. BREATHING EVEN AND UNLABORED ON ROOM AIR. SHOWS NO SIGNS OF ACUTE RESPIRATORY DISTRESS. DENIES PAIN AT THIS TIME. FC PATIENT HAS R IJ PERMCATH CLEAN AND INTACT. AND JOSE PICC LINE DRESSING CLEAN DRY AND INTACT BEING USED FOR HD. SAFETY PRECAUTIONS IN PLACE. BED LOCKED IN LOWEST POSITION, CALL LIGHT KEPT WITHIN REACH. PATIENT PLANNED TO BE DISCHARGED THIS EVENING AFTER HD WITH PROSPECTIVE PICKUP TIME AT 2200. WILL CONTINUE TO MONITOR.
--- NOTE | 2020-04-19 19:50 | NUR ---
MS/RN CLOSING NOTES PATIENT IS IN BED AWAKE AND WATCHING TV. ALERT AND ORIENTED X 4. BREATHING EVEN AND UNLABORED ON ROOM AIR. SHOWS NO SIGNS OF ACUTE RESPIRATORY DISTRESS. NO COMPLAINED OF ACUTE PAIN. FC FLOWING YELLOW CLOUDY URINE, ITS CLEAN DRY AND INTACT. PATIENT HAS R IJ PERMCATH CLEAN AND INTACT. AND JOSE PICC LINE ITS CLEAN DRY AND INTACT SHOWS NO SIGNS OF INFILTRATION, NO REDNESS. WITH GLADIS FISTULA INTACT. SEEN AND EXAMINED BY MD WITH ORDER MADE AND CARRIED OUT. ALL DUE MEDICATION WAS GIVEN. CHECKED PATIENT EVERY 2 HOURS. ALL WAS ATTENDED. SAFETY PRECAUTIONS IN PLACE. BED IN LOWEST POSITION, LOCKED, AND CALL LIGHT KEPT WITHIN REACH. PATIENT IS FOR DISCHARGED TODAY. PATIENT IS WITH ONGOING HEMODIALYSIS. SHEET ROCK INSTALLATION HELPER TIME 2100, GIVE REPORT TO BESSIE VAZ AT [facility]. WILL ENDORSED TO CLOTHING CONSULTANT.
[2020-04-19] MEDS: MEROPENEM 500 MG in IV NS 0.9% 50 ML IV SCH (20:00)
--- NOTE | 2020-04-19 20:00 | NUR ---
MEDICATIONS HELD PATIENT BEING DISCHARGED. RECENTLY COMPLETED HD WITH 1 LITER TAKEN OUT.
--- NOTE | 2020-04-19 21:18 | NUR ---
[facility] REPORT GIVEN TO EMS KIET LISA. PATIENT GOING TO [facility]. DISCHARGING WITH JOSE PICC LINE FLUSHE DINTACT. PERMACATH TO [facility] WITH DRESSING INTACT.
[2020-04-19 21:20] VITALS: BP 121/79
--- NOTE | 2020-04-20 01:37 | NUR ---
[facility] called and state that med rec was not sent with patient. Med Rec printed without orders and sent to [facility] at request of nurse damaso. fax success report recieved.
== END 2020-04-19 21:25 | DRG 335 ==
LOC: ER 13:10 → TELE 17:38 → MED 04-08 10:06 → ICU 04-14 21:53 → MED 04-17 15:08
PROVIDERS: ADMIT Internal Medicine Nephrology; ATTEND Internal Medicine Nephrology
PROC: 5A1D70Z Performance of Urinary Filtration, Intermittent, Less than 6 Hours Per Day (ICD-10-PCS; principal; 2020-04-08)
PROC: 5A1D70Z Performance of Urinary Filtration, Intermittent, Less than 6 Hours Per Day (ICD-10-PCS; 2020-04-09)
PROC: 0DNU4ZZ Release Omentum, Percutaneous Endoscopic Approach (ICD-10-PCS; 2020-04-14)
PROC: 0FB04ZX Excision of Liver, Percutaneous Endoscopic Approach, Diagnostic (ICD-10-PCS; 2020-04-14)
PROC: 5A1D70Z Performance of Urinary Filtration, Intermittent, Less than 6 Hours Per Day (ICD-10-PCS; 2020-04-15)
PROC: 05H933Z Insertion of Infusion Device into Right Brachial Vein, Percutaneous Approach (ICD-10-PCS; 2020-04-15)
PROC: 5A1D70Z Performance of Urinary Filtration, Intermittent, Less than 6 Hours Per Day (ICD-10-PCS; 2020-04-16)
PROC: 02HV33Z Insertion of Infusion Device into Superior Vena Cava, Percutaneous Approach (ICD-10-PCS; 2020-04-16)
PROC: B548ZZA Ultrasonography of Superior Vena Cava, Guidance (ICD-10-PCS; 2020-04-16)
DX: K56.52 Intestinal adhesions [bands] with complete obstruction (principal); G92 Toxic encephalopathy; N18.6 End stage renal disease; N39.0 Urinary tract infection, site not specified; I13.2 Hypertensive heart and chronic kidney disease with heart failure and with stage 5 chronic kidney disease, or end stage renal disease; I50.22 Chronic systolic (congestive) heart failure; N13.30 Unspecified hydronephrosis; K56.7 Ileus, unspecified; D63.1 Anemia in chronic kidney disease; E87.8 Other disorders of electrolyte and fluid balance, not elsewhere classified; Z99.2 Dependence on renal dialysis; I25.10 Atherosclerotic heart disease of native coronary artery without angina pectoris; I70.90 Unspecified atherosclerosis; E78.5 Hyperlipidemia, unspecified; K21.9 Gastro-esophageal reflux disease without esophagitis; K44.9 Diaphragmatic hernia without obstruction or gangrene; F41.9 Anxiety disorder, unspecified; K57.90 Diverticulosis of intestine, part unspecified, without perforation or abscess without bleeding; R05 Cough; D69.6 Thrombocytopenia, unspecified; L30.9 Dermatitis, unspecified; B19.20 Unspecified viral hepatitis C without hepatic coma; E83.39 Other disorders of phosphorus metabolism; K43.9 Ventral hernia without obstruction or gangrene; K56.41 Fecal impaction; Z74.01 Bed confinement status; Z79.02 Long term (current) use of antithrombotics/antiplatelets; Z87.891 Personal history of nicotine dependence; Z91.19 Patient's noncompliance with other medical treatment and regimen; E83.42 Hypomagnesemia
CPT/HCPCS: 31720; 36410; 36415; 36600; 71045-TC; 74018; 74250-TC; 80048-TC; 80061-TC; 80076-TC; 81000-TC; 82040-TC; 82803-TC; 82947-TC; 82962-TC; 83605-TC; 83735-TC; 84100-TC; 84134-TC; 84439-TC; 84443-TC; 84484-TC; 85025-TC; 85027-TC; 85610-TC; 85730-TC; 86706; 86850-TC; 87040-TC; 87081-TC; 87086-TC; 87186-TC; 87340; 88307-TC; 88313-TC; 90935-TC; 94002-TC; 94003-TC; 94799-TC; A4216; C1751; C9113; G0378; J0360; J0690; J1170; J1815; J1956; J2185; J2270; J2405; J2543; J2704; J2710; J2765; J3010; J3475; J3480; J3490; J7030; J7040; J7042; J7050; J7060; Q9963; U0003-CS

== ENCOUNTER 2020-08-23 11:45 | Inpatient (IN) | payer MEDICARE, OTHER ==
[~2020-08-23] VITALS: Ht 170.2 cm; Wt 72.6 kg
[~2020-08-23 11:45] MED LIST changes: +ACET-868 PO; +AMIN30LI2 PO; -ASCO500T10 PO; -ASPI-605 PO; -BACL10TA PO; +CLOP75TA15 PO; -FAMO20TA8 PO; -HYDR-4354 PO; +HYDR4TAB4 PO; +ISOS20TA8 PO; -ISOS30TA6 PO; +LIDO30AD10 TP; -LIDOCAINE PATCH TP; +MAG30ORA PO; -MULT-447 PO; -NITR0.4T48 SL; +NUT.237L67 PO; +PANT20TA2 PO; +SELE180S13 TP; +SEVE800T8 PO; -ZINC1CAP2 PO
--- NOTE | 2020-08-23 12:29 | NUR ---
NATALIE FROM DIALYSIS CENTER AFTER COMPLETING DIALYSIS SESSION. AAOX4. NOT IN RESP DISTRESS, BREATHING EVEN AND UNLABORED. BROOUGHT IN FOR DIZZYNESS AND WEAKNESS. PER PT, HE STARTED EXHIBITING THE DIZZYNESS IN THE MIDDLE OF HIS DIALYSIS SESSION. HE DESCRIBES THAT DIZZYNESS A STHE ROOM SPINNING. ALSO HE REPORTED THAT HE HAVENT EATEN SINCE LAST NIGHT (DID NOT HAVE DINNER). NO NEURO DEFICIT NOTED. NOTED TENDERNESS UPON PALPATION BY THE MD IN THE UMBUILICUS AREA. NO NEURO DEFICIT NOTED. MD WAS AT THE BEDSIDE FOR EVAL. ORDERS RECEIVED NOTED AND CARRIED OUT. IV LINE ESTABLSIHED ON THE R FA W/ 18G, BLOOD DRAWN AND GIVEN TO LABORATORY WORKER AT BEDSIDE. URINE COLLECTED BY ASPIRATION FROM CARLOS CATH. EKG DONE AND PT ON THE WAY TO RADIOLOGY FOR CT.
[2020-08-23 12:37] LABS: BASOPHILS # (AUTO) 0.1 /CMM (0.0-0.2); BASOPHILS % (AUTO) 1.5 % (0.0-2.0); EOSINOPHILS % (AUTO) 3.4 % (0.0-6.0); HEMATOCRIT 37 % (39-51); HEMOGLOBIN 12.4 g/dL (13.5-17.5); LYMPHOCYTES # (AUTO) 1.5 /CMM (0.8-4.8); MEAN CORPUSCULAR HGB CONC 33 g/dl (31.0-36.0); MEAN CORPUSCULAR VOLUME 91 fL (80-96); MONOCYTES # (AUTO) 1.3 /CMM (0.1-1.30); MONOCYTES % (AUTO) 14.4 % (2.0-12.0); NEUTROPHILS % (AUTO) 64.7 % (43.0-81.0); PLATELET COUNT (AUTO) 238 /CMM (150-450); RED BLOOD CELL COUNT(AUTO) 4.12 MIL/uL (4.5-6.0); WHITE BLOOD COUNT (AUTO) 9.3 K/uL (4.3-11.0)
[2020-08-23 12:43] LABS: BILIRUBIN,URINE NEGATIVE (NEGATIVE); BLOOD, URINE MODERATE Ery/uL (NEGATIVE); COLOR,URINE YELLOW (YELLOW); LEUKOCYTE ESTERASE ,URINE LARGE (NEGATIVE); NITRITE, URINE NEGATIVE (NEGATIVE); PH,URINE 7.5 (5.0-8.0); PROTEIN,URINE >=300 mg/dl (NEGATIVE); UGLUCOSE NEGATIVE (NEGATIVE); UROBILINOGEN,URINE 0.2 EU/dL (0.2)
--- NOTE | 2020-08-23 12:48 | NUR ---
PT PROVIDED WITH MEAL TRAY. APPROVED BY
[2020-08-23 12:53] LABS: ALANINE AMINOTRANSFERASE 19 U/L (12-78); ALBUMIN 2.9 g/dL (3.4-5.0); ALKALINE PHOSPHATASE 51 U/L (46-116); ASPARTATE AMINOTRANSFERASE 23 U/L (15-37); BILIRUBIN,DIRECT 0.1 mg/dL (0.0-0.2); BILIRUBIN,TOTAL 0.5 mg/dL (0.2-1.0); CALCIUM, SERUM 8.7 mg/dL (8.5-10.1); CARBON DIOXIDE 28 mmol/L (21-32); CHLORIDE 100 mmol/L (98-107); GLUCOSE 105 mg/dL (74-106); POTASSIUM 3.7 mmol/L (3.5-5.1); SODIUM SERUM 137 mmol/L (136-145); TOTAL PROTEIN, SERUM 7.7 g/dL (6.4-8.2); UREA NITROGEN, BLOOD 23 mg/dL (7-18)
--- NOTE | 2020-08-23 12:58 | NUR ---
DR Qiana JIMENEZ FOR DR PAGAN
--- NOTE | 2020-08-23 13:24 | NUR ---
TALKING TO PT AT BEDSIDE
[2020-08-23] MEDS ORDERED: FAMOTIDINE/PF INJ 20 MG/2 ML VIAL IV ONE ×2 (13:30→13:33)
--- NOTE | 2020-08-23 13:42 | NUR ---
FOLLOWED UP WITH LAB REGARDING LIPASE RESULT
[2020-08-23] MEDS ORDERED: ZINC220C6 PO (14:01)
[2020-08-23] MEDS ORDERED: CRAN450C PO (14:01)
[2020-08-23] MEDS ORDERED: ASCO500T10 PO (14:01)
--- NOTE | 2020-08-23 14:30 | NUR ---
CALLED NURSING SUP FOR TELE BED.
[2020-08-23 14:34] LABS: WBC,URINE TOO NUMEROUS TO COUN /HPF (0-3)
--- NOTE | 2020-08-23 14:34 | NUR ---
NURSING SUP GAVE TELE 204-1.
[2020-08-23 14:36] LABS: SQUAMOUS EPITHELIAL CELL,UR Few /HPF (None Seen)
[2020-08-23 14:37] LABS: BACTERIA,URINE Many /HPF (None Seen)
--- NOTE | 2020-08-23 15:05 | NUR ---
REPORT GIVEN TO ТАТЬЯНА NAJERA FOR KIMBER
--- NOTE | 2020-08-23 15:25 | NUR ---
PT TRANSPORTED TO UNIT ON GURNEY WITH EMT AND RN AT BEDSIDE W/ ACLS PROTOCOL. NAD NOTED DURING TRANSPORT.
[2020-08-23] MEDS ORDERED: ACETAMINOPHEN 325 MG TABLET PO PRN (15:30)
[2020-08-23] MEDS ORDERED: ONDANSETRON HCL/PF 4 MG/2 ML VIAL IVP PRN (15:30)
[2020-08-23] MEDS ORDERED: MAGNESIUM HYDROXIDE 30 ML UDC PO PRN ×2 (15:30)
[2020-08-23] MEDS ORDERED: NA PHOS,M-B/NA PHOS,DI-BA 1 EA ENEMA RC PRN (15:30)
[2020-08-23] MEDS ORDERED: BISACODYL SUPP (10 MG) 10 MG/SUPP.RECT SUPP.RECT RC PRN (15:30)
[2020-08-23] MEDS ORDERED: MAG HYDROX/AL HYDROX/SIMETH 30 ML UDC PO PRN ×2 (15:30)
[2020-08-23] MEDS ORDERED: Z GUARD REMEDY 2 OZ OINT TP PRN (15:30)
--- NOTE | 2020-08-23 15:30 | NUR ---
RN NOTE THE PATIENT IS RECEIVED ON A GURNEY FROM ER. TRANSFERRED THE PATIENT FROM A GURNEY TO BED. THE PATIENT IS ALERT AND ORIENTED X4. DENIES PAIN. IN ROOM AIR AND DENIES SOB. RESPIRATION REGULAR AND UNLABORED. THE PATIENT IS IN NO APPARENT DISTRESS. CARLOS CATH PRESENT. RIGHT UPPER CHEST HD CATH PRESENT. RFA G 18 PATENT AND SALINE LOCKED. ORIENTATION ABOUT ROOM/UNIT IS GIVEN AND THE PATIENT VERBALIZED UNDERSTANDING. BED LOW AND LOCKED. SIDE RAILS UP X3. CALL LIGHT WITHIN REACH. WILL CONTINUE TO MONITOR.
[2020-08-23 16:00] VITALS: BP 106/51
[2020-08-23] MEDS: FUROSEMIDE 20 MG TABLET PO SCH (16:47)
[2020-08-23] MEDS: DOCUSATE SODIUM 100 MG CAPSULE PO SCH (16:47)
[2020-08-23] MEDS: CEFTRIAXONE 1 G in IV D5W 50 ML IV SCH (17:47)
[2020-08-23] MEDS: SEVELAMER CARBONATE 800 MG TABLET PO SCH (17:47)
--- NOTE | 2020-08-23 17:55 | NUR ---
RN NOTE DR VITAL IS MADE AWARE OF PATIENT`S VTE SCORE 3 AND RECEIVED AN ORDER HEPARIN 500 UNITS SQ Q12 HR. READ BACK, VERIFIED. NOTED AND CARRIED OUT.
--- NOTE | 2020-08-23 18:06 | NUR ---
RN NOTE THE PATIENT ALERT AND ORIENTED X4. DENIES PAIN. IN ROOM AIR AND OXYGEN SATURATION LEVEL IS AT 97%. DENIES SOB. RESPIRATION REGULAR AND UNLABORED. DENIES DIZZINESS AT THIS TIME. RFA G 18 PATENT AND IV ANTIBIOTIC INFUSING PER ORDER. NO S/S INFILTRATION NOTED. RIGHT UPPER CHEST HD CATH PRESENT AND NO S/S BLEEDING NOTED. TELE BOX READING IS SR 65 WITH PVC. CARLOS CATH DRAINING CLEAR AND YELLOW COLOR URINE. NO BLADDER DISTENSION NOTED. BED LOW AND LOCKED. SIDE RAILS UP X3. CALL LIGHT WITHIN REACH. WILL ENDORSE TO HARDWOOD FLOOR LAYER.
--- NOTE | 2020-08-23 20:04 | NUR ---
MS2/RN RECEIVED PATIENT IN ROOM LYING ON BED AWAKE, ALERT, ORIENTED, COMFORTABLE, NO C/O PAIN NO DISTRESS NOTED, CALL LIGHT IN REACH, FALL PRECAUTIONS PER PROTOCOL, WILL MONITOR.
[2020-08-23] MEDS ORDERED: DONEPEZIL 5 MG TABLET PO SCH (22:00)
[2020-08-23] MEDS: SENNOSIDES 8.6 MG TABLET PO SCH (22:43)
[2020-08-23] MEDS: TAMSULOSIN 0.4 MG CAP.SR.24H PO SCH (22:44)
[2020-08-23] MEDS: HEPARIN SODIUM, PORCINE 5000 UNITS/1 ML VIAL SQ SCH (22:45)
--- NOTE | 2020-08-24 01:42 | NUR ---
MS2/RN PATIENT IS SLEEPING AT THIS TIME, APPEAR COMFORTABLE, NO SIGNS OF DISTRESS NOTED, CALL LIGHT IN REACH. WILL CONTINUE TO MONITOR.
[2020-08-24 06:14] LABS: BASOPHILS # (AUTO) 0.2 /CMM (0.0-0.2); BASOPHILS % (AUTO) 2.2 % (0.0-2.0); EOSINOPHILS % (AUTO) 3.5 % (0.0-6.0); HEMATOCRIT 37 % (39-51); HEMOGLOBIN 12.1 g/dL (13.5-17.5); LYMPHOCYTES # (AUTO) 1.6 /CMM (0.8-4.8); LYMPHOCYTES % (AUTO) 16.4 % (20.0-44.0); MEAN CORPUSCULAR HGB CONC 32 g/dl (31.0-36.0); MEAN CORPUSCULAR VOLUME 92 fL (80-96); MONOCYTES # (AUTO) 1.1 /CMM (0.1-1.30); MONOCYTES % (AUTO) 10.9 % (2.0-12.0); NEUTROPHILS # (AUTO) 6.6 /CMM (1.8-8.9); PLATELET COUNT (AUTO) 223 /CMM (150-450); RED BLOOD CELL COUNT(AUTO) 4.06 MIL/uL (4.5-6.0); WHITE BLOOD COUNT (AUTO) 9.9 K/uL (4.3-11.0)
--- NOTE | 2020-08-24 06:22 | NUR ---
MS2/RN PATIENT IS AWAKE, ALERT, ORIENTED, COMFORTABLE, NO C/O PAIN, NO DISTRESS NOTED, CALL LIGHT IN REACH, ALL NEEDS ATTENDED AT THIS TIME, WILL CONTINUE TO MONITOR.
[2020-08-24 06:47] LABS: CARBON DIOXIDE 25 mmol/L (21-32); CHLORIDE 100 mmol/L (98-107); GLUCOSE 121 mg/dL (74-106); MAGNESIUM 2.2 mg/dL (1.8-2.4); PHOSPHORUS 4.3 mg/dL (2.5-4.9); POTASSIUM 4.1 mmol/L (3.5-5.1); SODIUM SERUM 136 mmol/L (136-145); UREA NITROGEN, BLOOD 38 mg/dL (7-18)
[2020-08-24 07:30] LABS: THYROID STIMULATING HORMONE 2.836 uIU/mL (0.358-3.74)
--- NOTE | 2020-08-24 07:30 | NUR ---
POWDER CORE TESTER NOTES PT IN BED, AWAKE, ALERT AND ORIENTED, DENIES PAIN, NOT IN DISTRESS, CALL LIGHT WITHIN REACH, F/C DRAINING WELL WITH CLEAR, YELLOW URINE, NEEDS ATTENDED, KEPT COMFORTABLE AND ELECTRONIC WIRER BED.
[2020-08-24 08:00] VITALS: BP 116/69
[2020-08-24] MEDS: PANTOPRAZOLE 40 MG/PACK PACK PO SCH (08:22)
[2020-08-24] MEDS: VIT B CMPLX 3/FA/VIT C/BIOTIN 1 TAB TABLET PO SCH (08:22)
[2020-08-24] MEDS: CLOPIDOGREL BISULFATE 75 MG TABLET PO SCH (08:22)
[2020-08-24] MEDS: FUROSEMIDE 20 MG TABLET PO SCH ×2 (08:22→16:42)
[2020-08-24] MEDS: DOCUSATE SODIUM 100 MG CAPSULE PO SCH ×2 (08:22→16:42)
[2020-08-24] MEDS: ZINC SULFATE 220 MG CAPSULE PO SCH (08:22)
[2020-08-24] MEDS: SEVELAMER CARBONATE 800 MG TABLET PO SCH ×3 (08:22→17:34)
[2020-08-24] MEDS: HEPARIN SODIUM, PORCINE 5000 UNITS/1 ML VIAL SQ SCH ×2 (08:35→21:54)
[2020-08-24] MEDS: LIDOCAINE 5% (PATCH) 1 EA PATCH TP SCH (08:35)
[2020-08-24] MEDS ORDERED: Medication Not On Formulary EA (Cranberry Fruit Concentrate (Cranberry) 450 MG) PO SCH (09:00)
--- NOTE | 2020-08-24 11:17 | NUR ---
SHOTBLASTER NOTES PT IN BED, AWAKE, ALERT AND ORIENTED, NO COMPLAINT, SEEN BY DR. Rashad GRIFFIN, PLAN OF CARE DISCUSSED WITH PT, VERBALIZED UNDERSTANDING, NEEDS ATTENDED.
[2020-08-24] MEDS ORDERED: POLYETHYLENE GLYCOL 3350 17 GM POWD.PACK PO PRN (11:30)
[2020-08-24 12:00] VITALS: BP 137/72
[2020-08-24 16:00] VITALS: BP 148/68
[2020-08-24] MEDS: CEFTRIAXONE 1 G in IV D5W 50 ML IV SCH (16:42)
--- NOTE | 2020-08-24 18:22 | NUR ---
PEWTER FINISHER NOTES PT IN BED, AWAKE, ALERT AND ORIENTED, DENIES PAIN, NOT IN DISTRESS, CALL LIGHT WITHIN REACH, PM MEDS GIVEN ORDERED, PM CARE PROVIDED, ALL NEEDS ATTENDED.
--- NOTE | 2020-08-24 20:00 | NUR ---
RN NOTES RECEIVED PATIENT IN BED, ALERT AND ORIENTED X4, ROOM AIR, NO RESPIRATORY DISTRESS, IRRITABLE, NO COMPLAIN OF PAIN, LIDOCAINE PATCH TO BOTH SHOULDERS, KEPT SAFE, WILL CONTINUE TO MONITOR
[2020-08-24 20:45] VITALS: BP 125/71
[2020-08-24] MEDS: SENNOSIDES 8.6 MG TABLET PO SCH (21:53)
[2020-08-24] MEDS: TAMSULOSIN 0.4 MG CAP.SR.24H PO SCH (21:53)
[2020-08-24 22:00] VITALS: BP 125/71
[2020-08-24] MEDS: MUPIROCIN OINT 2% 22 GM TUBE SCH (22:06)
[2020-08-25] VITALS (9 sets, daily range): BP systolic 127–165; BP diastolic 48–85
--- NOTE | 2020-08-25 05:41 | NUR ---
RN NOTES STANDING ORDER TO REMOVE CARLOS CATHETER, PATIENT REFUSED TO HAVE CARLOS CATHETER TAKEN OFF.
--- NOTE | 2020-08-25 06:07 | NUR ---
RN NOTES PAGED DR. ZEUS GRIFFIN REGARDING PATIENT REFUSING REMOVAL OF CARLOS CATHETER.
--- NOTE | 2020-08-25 06:21 | NUR ---
RN NOTES CARLOS CATHETER DISCONTINUED
--- NOTE | 2020-08-25 06:29 | NUR ---
RN NOTES ALERT AND AWAKE, STABLE ON ROOM AIR, LIDOCAINE PATCH FOR SHOULDER PAIN, ACRLOS CATHETER DISCONTINUED PER DR. ZEUS GRIFFIN, HD ON WEDNESDAY, AWAITING COVID RESULT, CONTINUE ROCEPHIN FOR UTI. VS STABLE, AFEBRILE, SR WITH TRIGEMINY, HR 62
--- NOTE | 2020-08-25 07:30 | NUR ---
TELE/RN OPENING NOTES RECEIVED PATIENT ON BED. AWAKE AND ORIENTED X 2. PATIENT IN NO APPARENT RESPIRATORY DISTRESS NOTED. NO SIGN AND SYMPTOM OF PAIN NOTED AT THIS TIME. TELE MONITOR WAS IN PLACE READING SINUS RHYTHM 90 BPM. WILL CONTINUE TO MONITOR. Addendum: 08/25/20 at 0736 by JERMAIN MESSINA RN ERROR
--- NOTE | 2020-08-25 07:36 | NUR ---
TELE/RN OPENING NOTES RECEIVED PATIENT ON BED. AWAKE AND ORIENTED X 4. PATIENT IN NO APPARENT RESPIRATORY DISTRESS NOTED. PATIENT COMPLAINED OF CONSTIPATION. DR. VITAL ORDER MAGNESIUM CITRATE 296ML P.O 1 BOTTLE X1. NOTED AND CARRIED OUT. TELE MONITOR WAS IN PLACE READING SINUS RHYTHM 66 BPM. PATIENT WAS CURSING THE NURSES, PATIENT WAS YELLING,SHOUTING AND SAYING BAD WORDS. WILL CONTINUE TO MONITOR.
[2020-08-25] MEDS: SEVELAMER CARBONATE 800 MG TABLET PO SCH ×3 (08:01→17:11)
[2020-08-25] MEDS: PANTOPRAZOLE 40 MG/PACK PACK PO SCH (08:01)
[2020-08-25] MEDS: LIDOCAINE 5% (PATCH) 1 EA PATCH TP SCH (08:08)
[2020-08-25] MEDS: FUROSEMIDE 20 MG TABLET PO SCH ×2 (08:09→16:15)
[2020-08-25] MEDS: DOCUSATE SODIUM 100 MG CAPSULE PO SCH ×2 (08:09→16:14)
[2020-08-25] MEDS: VIT B CMPLX 3/FA/VIT C/BIOTIN 1 TAB TABLET PO SCH (08:09)
[2020-08-25] MEDS: ZINC SULFATE 220 MG CAPSULE PO SCH (08:09)
[2020-08-25] MEDS: CLOPIDOGREL BISULFATE 75 MG TABLET PO SCH (08:09)
[2020-08-25] MEDS: HEPARIN SODIUM, PORCINE 5000 UNITS/1 ML VIAL SQ SCH ×2 (08:13→21:18)
[2020-08-25] MEDS: MUPIROCIN OINT 2% 22 GM TUBE SCH ×2 (08:43→21:11)
[2020-08-25] MEDS ORDERED: MAGNESIUM CITRATE 296 ML BOTTLE PO ONE (09:00)
[2020-08-25 09:08] LABS: BASOPHILS # (AUTO) 0.1 /CMM (0.0-0.2); BASOPHILS % (AUTO) 0.4 % (0.0-2.0); EOSINOPHILS % (AUTO) 1.3 % (0.0-6.0); HEMATOCRIT 38 % (39-51); LYMPHOCYTES # (AUTO) 1.2 /CMM (0.8-4.8); LYMPHOCYTES % (AUTO) 8.5 % (20.0-44.0); MEAN CORPUSCULAR HGB CONC 32 g/dl (31.0-36.0); MEAN CORPUSCULAR VOLUME 93 fL (80-96); MONOCYTES # (AUTO) 1.2 /CMM (0.1-1.30); MONOCYTES % (AUTO) 8.8 % (2.0-12.0); PLATELET COUNT (AUTO) 236 /CMM (150-450); RED BLOOD CELL COUNT(AUTO) 4.08 MIL/uL (4.5-6.0); WHITE BLOOD COUNT (AUTO) 13.6 K/uL (4.3-11.0)
[2020-08-25 09:46] LABS: CALCIUM, SERUM 9.5 mg/dL (8.5-10.1); CARBON DIOXIDE 23 mmol/L (21-32); CHLORIDE 98 mmol/L (98-107); CREATININE 5.3 mg/dL (0.6-1.3); GLUCOSE 167 mg/dL (74-106); MAGNESIUM 2.4 mg/dL (1.8-2.4); PHOSPHORUS 4.1 mg/dL (2.5-4.9); SODIUM SERUM 134 mmol/L (136-145); UREA NITROGEN, BLOOD 50 mg/dL (7-18)
[2020-08-25] MEDS: HYDROCODONE/APAP 5/325MG TABLET PO PRN (14:37)
[2020-08-25] MEDS: CEFTRIAXONE 1 G in IV D5W 50 ML IV SCH (16:13)
--- NOTE | 2020-08-25 19:19 | NUR ---
TELE/RN CLOSING NOTES PATIENT IS ON BED. PATIENT IN NO APPARENT RESPIRATORY DISTRESS NOTED. PATIENT NO COMPLAINED OF PAIN AT THIS TIME. TELE MONITOR WAS IN PLACE READING SINUS RHYTHM 61 BPM. IV ACCESS AT RIGHT FOREARM # 18G PATENT AND INTACT. SEEN AND EXAMINED BY MD WITH ORDERS MADE AND CARRIED OUT. ALL DUE MEDICATION WAS GIVEN. SAFETY PRECAUTIONS WAS IN PLACE. BED IN LOWEST POSITION AND LOCKED. SIDERAILS UP X2. CALL LIGHT WITH IN REACH. WILL ENDORSED TO BUDGET ENGINEER FOR KIMBER.
--- NOTE | 2020-08-25 19:30 | NUR ---
TELE/RN OPENING NOTES RECEIVED PATIENT IN BED RESTING. PATIENT IS ALERT AND ORIENT X 4. PATIENT SHOWS NO SIGNS OF SOB OR RESPIRATORY DISTRESS NOTED. BREATHING IS EVEN AND UNLABORED. TELE READING SR 64. PATIENT HAS RIGHT FOREARM #18G IV INTACT, AND RIGHT PERMA CATH IN PLACE. SAFETY MEASURES ARE IN PLACE, BED IS LOCKED AND PLACED IN THE LOW POSITION, CALL LIGHT WITHIN REACH. WILL CONTINUE TO MONITOR DURING SHIFT.
[2020-08-25] MEDS: SENNOSIDES 8.6 MG TABLET PO SCH (21:12)
[2020-08-25] MEDS: TAMSULOSIN 0.4 MG CAP.SR.24H PO SCH (21:12)
[2020-08-26 00:36] VITALS: BP 153/66
[2020-08-26] MEDS: HYDROCODONE/APAP 5/325MG TABLET PO PRN (02:58)
--- NOTE | 2020-08-26 03:00 | NUR ---
TELE/RN NOTES PATIENT COMPLAINING OF BACK PAIN. NORCO 5 PO WAS GIVEN. V/S ARE STABLE, WILL CONTINUE TO MONITOR.
[2020-08-26 04:57] VITALS: BP 141/96
--- NOTE | 2020-08-26 06:35 | NUR ---
TELE/RN CLOSING NOTES PATIENT IN BED RESTING WATCHING TV. PATIENT IS ALERT AND ORIENT X 4. PATIENT SHOWS NO SIGNS OF SOB OR RESPIRATORY DISTRESS NOTED. BREATHING IS EVEN AND UNLABORED. TELE READING SR 73. PATIENT RIGHT FOREARM IV *18G AND RIGHT PERMA CATH IN PLACE. PATIENT IN NO ACUTE DISTRESS. ALL NEEDS HAVE BEEN MET DURING SHIFT.SAFETY MEASURES ARE IN PLACE, BED IS LOCKED AND PLACED IN THE LOW POSITION, CALL LIGHT WITHIN REACH. WILL ENDORSE CARE TO DAY SHIFT.
--- NOTE | 2020-08-26 07:00 | NUR ---
RN OPENING NOTES RECEIVED PATIENT IN BED RESTING. PATIENT IS ALERT AND ORIENT X 4. PATIENT SHOWS NO SIGNS OF SOB OR RESPIRATORY DISTRESS NOTED. BREATHING IS EVEN AND UNLABORED. TELE READING SR 64. R ARM NOTED TO BE SWELLING. IV ACCESS ON R FA WAS INFILTRATED UPON ROUNDS. ELEVATED EXT TO PILLOWS. APPLIED ICE PACK. RIGHT PERMA CATH IN PLACE. SAFETY MEASURES ARE IN PLACE, BED IS LOCKED AND PLACED IN THE LOW POSITION, CALL LIGHT WITHIN REACH. WILL CONTINUE TO MONITOR DURING SHIFT.
[2020-08-26 07:48] LABS: BASOPHILS # (AUTO) 0.1 /CMM (0.0-0.2); BASOPHILS % (AUTO) 0.7 % (0.0-2.0); EOSINOPHILS % (AUTO) 1.3 % (0.0-6.0); HEMATOCRIT 36 % (39-51); HEMOGLOBIN 11.6 g/dL (13.5-17.5); LYMPHOCYTES # (AUTO) 1.5 /CMM (0.8-4.8); LYMPHOCYTES % (AUTO) 11.5 % (20.0-44.0); MEAN CORPUSCULAR HGB CONC 33 g/dl (31.0-36.0); MEAN CORPUSCULAR VOLUME 91 fL (80-96); MONOCYTES # (AUTO) 1.4 /CMM (0.1-1.30); MONOCYTES % (AUTO) 10.7 % (2.0-12.0); NEUTROPHILS # (AUTO) 9.8 /CMM (1.8-8.9); NEUTROPHILS % (AUTO) 75.8 % (43.0-81.0); PLATELET COUNT (AUTO) 226 /CMM (150-450); RED BLOOD CELL COUNT(AUTO) 3.92 MIL/uL (4.5-6.0)
[2020-08-26 08:00] VITALS: BP 141/73
[2020-08-26] MEDS: FUROSEMIDE 20 MG TABLET PO SCH ×2 (08:36→16:55)
[2020-08-26] MEDS: LIDOCAINE 5% (PATCH) 1 EA PATCH TP SCH (08:36)
[2020-08-26] MEDS: DOCUSATE SODIUM 100 MG CAPSULE PO SCH ×2 (08:36→16:55)
[2020-08-26] MEDS: CLOPIDOGREL BISULFATE 75 MG TABLET PO SCH (08:36)
[2020-08-26] MEDS: VIT B CMPLX 3/FA/VIT C/BIOTIN 1 TAB TABLET PO SCH (08:36)
[2020-08-26] MEDS: SEVELAMER CARBONATE 800 MG TABLET PO SCH ×3 (08:36→17:28)
[2020-08-26] MEDS: ZINC SULFATE 220 MG CAPSULE PO SCH (08:36)
[2020-08-26] MEDS: HEPARIN SODIUM, PORCINE 5000 UNITS/1 ML VIAL SQ SCH (08:37)
[2020-08-26] MEDS: MUPIROCIN OINT 2% 22 GM TUBE SCH (08:37)
[2020-08-26] MEDS ORDERED: PANTOPRAZOLE 40 MG TABLET.DR PO SCH (09:00)
--- NOTE | 2020-08-26 10:00 | NUR ---
DR. CHASE MADE AWARE OF PTS WBC OF 13.6. ALSO ASKED MD IF WE COULD ORDER MIDLINE SINCE PT IS A HARD STICK AND RN WAS UNSUCCESSFUL X3. PER DR. VITAL, NO NEED FOR MIDLINE. PT WILL BE DISCHARGING TODAY BACK TO SNF.
[2020-08-26] MEDS ORDERED: SULF1TAB48 PO (10:01)
--- NOTE | 2020-08-26 11:30 | NUR ---
RN NOTES BEDSIDE ENDORSEMENT DONE. RECEIVED PATIENT FROM MS2 AND TRANSFERRED TO [facility]. PATIENT A/O X4, ABLE TO MAKE NEEDS KNOWN. BREATHING IS EVEN AND UNLABORED, TOLERATING ROOM AIR. NO SIGNS OF RESPIRATORY DISTRESS NOTED. ON TELE MONITORING W/ READING OF SR, HR IN THE 70'S. IV ACCESS ON R FA WAS INFILTRATED UPON ROUNDS PER PREVIOUS RN, AND THAT PATIENT TO BE DIALYZED TODAY BEFORE POSSIBLE DISCHARGE TO [facility]. RIGHT PERMA CATH IN PLACE. SAFETY MEASURES ARE IN PLACE: BED IS LOCKED AND ON LOWEST POSITION, SR UP X2, CALL LIGHT WITHIN REACH. WILL CONTINUE TO MONITOR.
--- NOTE | 2020-08-26 11:30 | NUR ---
REPORT GIVEN TO ZAHIDA VAZ AT [facility] FOR KIMBER
[2020-08-26 12:30] VITALS: BP 141/66
--- NOTE | 2020-08-26 14:56 | NUR ---
RN NOTES DIALYSIS NURSE CURRENTLY IN UNIT TO DIALYZE PATIENT; CONSENT FOR HD SIGNED BY PATIENT.
[2020-08-26 16:00] VITALS: BP 134/66
[2020-08-26] MEDS: CEFTRIAXONE 1 G in IV D5W 50 ML IV SCH (16:30)
--- NOTE | 2020-08-26 17:42 | NUR ---
RN NOTES PATIENT REPORT GIVEN TO MARTHA RN AUTOMOBILE MECHANIC MOTOR, OF [facility]; PICKUP TIME AT UNIT IS [id number]
--- NOTE | 2020-08-26 18:35 | NUR ---
LOAN OPERATIONS SPECIALIST NOTES PATIENT IS FOR DISCHARGE TODAY, W/ DISCHARGE ORDER NOTED FROM MD PER PREVIOUS RN REPORT. PATIENT IS ALERT AND VERBALLY RESPONSIVE, A/O X3-4, ABLE TO MAKE NEEDS KNOWN. BREATHING EVEN AND UNLABORED, TOLERATING ROOM AIR. S/P HD TODAY, OUTPUT OF 400ML. HD ACCESS SITE IS INTACT AND PATENT, DRESSING C/D/I. ATE DINNER PRIOR TO DISCHARGE. PATIENT REFUSED TO TAKE PHOTOS OF SKIN. BELONGINGS LIST AND DISCHARGE FORM SIGNED BY PATIENT. ALL DUE MEDS GIVEN. BEDSIDE REPORT GIVEN TO 2 RELOCATION SPECIALIST AND TRANSPORTED PATIENT VIA GURNEY. VS TAKEN, STABLE. CHARGE NURSE AND MD AWARE OF DISCHARGE.
== END 2020-08-26 18:45 | DRG 308 ==
LOC: ER 11:56 → TELE2 14:42 → TELE 08-26 11:25
PROVIDERS: ADMIT Internal Medicine; ATTEND Internal Medicine
PROC: 5A1D70Z Performance of Urinary Filtration, Intermittent, Less than 6 Hours Per Day (ICD-10-PCS; principal; 2020-08-26)
DX: R00.1 Bradycardia, unspecified (principal); N18.6 End stage renal disease; N39.0 Urinary tract infection, site not specified; I13.2 Hypertensive heart and chronic kidney disease with heart failure and with stage 5 chronic kidney disease, or end stage renal disease; Z99.2 Dependence on renal dialysis; I25.10 Atherosclerotic heart disease of native coronary artery without angina pectoris; E78.5 Hyperlipidemia, unspecified; E11.22 Type 2 diabetes mellitus with diabetic chronic kidney disease; Z87.891 Personal history of nicotine dependence; D63.8 Anemia in other chronic diseases classified elsewhere; G89.29 Other chronic pain; N40.1 Benign prostatic hyperplasia with lower urinary tract symptoms; Z86.19 Personal history of other infectious and parasitic diseases; I50.9 Heart failure, unspecified; T44.7X5A Adverse effect of beta-adrenoreceptor antagonists, initial encounter; Y92.89 Other specified places as the place of occurrence of the external cause; B96.1 Klebsiella pneumoniae [K. pneumoniae] as the cause of diseases classified elsewhere; Z79.4 Long term (current) use of insulin
CPT/HCPCS: 36415; 71045-TC; 80048-TC; 80076-TC; 81000-TC; 83605-TC; 83690-TC; 83735-TC; 84100-TC; 84443-TC; 84484-TC; 85025-TC; 85730-TC; 86706; 87040-TC; 87081-TC; 87086-TC; 87186-TC; 87340; G0378; J0696; J1644; J3490; J7050; J7060; U0003